=== PATIENT | male | born 1955 | race Caucasian/White ===

== ENCOUNTER 2018-08-22 15:23 | Inpatient (IN) ==
[2018-08-22] MEDS ORDERED: NS 2,000 ML ONE (15:38)
[2018-08-22] MEDS ORDERED: ASPIRIN PO ONE (17:01)
--- NOTE | 2018-08-22 17:08 | PROVIDER DOCUMENTATION ---
HPI-General Adult - General Chief Complaint: Shortness of Breath Stated Complaint: WEAKNESS Time Seen by Provider: 08/22/18 16:54 Source: patient Allergies/Adverse Reactions: Patient Allergies Allergy/AdvReac Type Severity Reaction Status Date / Time Ceucbsu-Dvk-Ljd Reductase AdvReac Unknown Verified 06/14/18 14:58 Inhibitor Home Medications: Home Medication List Medication Instructions Recorded Confirmed Last Taken Type Aspirin 325 mg PO DAILY 06/14/18 06/14/18 Unknown History Carvedilol [Coreg] 12.5 mg PO BID 06/14/18 06/14/18 Unknown History Gabapentin 400 mg PO TID 06/14/18 06/14/18 Unknown History Meclizine [Antivert] 25 mg PO TID PRN PRN 06/14/18 06/14/18 Unknown History Omeprazole 40 mg PO DAILY 06/14/18 06/14/18 Unknown History Sitagliptin Phosphate [Januvia] 100 mg PO DAILY 06/14/18 06/14/18 Unknown History Docusate Sodium [Colace] 200 mg PO QHS capsule 06/20/18 Unknown Rx Ferrous Sulfate 325 mg PO WBREAKFAST tablet 06/20/18 Unknown Rx Insulin Detemir [Levemir] 25 unit SUBQ DAILY #5 insuln.pen 06/20/18 Unknown Rx Oxycodone HCl/Acetaminophen 1 ea PO Q6H #30 tab 06/20/18 Unknown Rx [Percocet 5-325 mg Tablet] - History of Present Illness -Gen Adult Nature of Presenting Problems: THIS IS A 63 YEAR OLD MALE WHO CAME IN TODAY WITH CONCERN OF DIZZINESS, CONFUSION, AND SOB WHICH PATIENT STATES IT STARTED AROUND 1330 THIS AFTERNOON. PATIENT STATES HE HAS HISTORY OF HYPERTENSION AND DIABETES MELLITUS. CURRENTLY A SMOKER. Review of Systems - Adult - REVIEW OF SYSTEMS - ADULT ROS:: unobtainable per condition Constitutional: reports: fatique Eyes: reports: no symptoms reported Ears, Nose, Mouth & Throat: reports: no symptoms reported Cardiovascular: reports: no symptoms reported Respiratory: reports: shortness of breath Gastrointestinal: reports: no symptoms reported Genitourinary: reports: no symptoms reported Musculoskeletal: reports: no symptoms reported Integumentary: reports: no symptoms reported Neurological: reports: dizziness/vertigo Psychiatric: reports: no symptoms reported Endocrine: reports: no symptoms reported Hematologic/Lymphatic: reports: no symptoms reported Allergic/Immunologic: reports: no symptoms reported Past History - Adult - PAST MEDICAL HISTORY-ADULT Review of Records: reports: Old Records Reviewed Major Childhood Illnesses: reports: denies history Cardiovascular: reports: HTN, hyperlipidemia Respiratory: reports: sleep apnea Gastrointestinal: reports: denies history Obstetrical/Gynecological: reports: denies history Genitourinary: reports: dialysis Musculoskeletal: reports: denies history Neurological: reports: denies history Endocrine/Immune: reports: Diabetes Other Conditions: reports: denies history - PRIOR SURGERIES/PROCEDURES Surgical/Procedure History: reports: tonsillectomy - IMMUNIZATION STATUS Childhood Immunizations: See Nurse Assessment Flu Vaccine: See Nurse Assessment - FAMILY HISTORY Family History: reviewed, not pertinent Physical Exam-General - PHYSICAL EXAM-ADULT Initial Vital Signs Reviewed: Yes - CONSTITUTIONAL General Appearance: no apparent distress, slow to respond - EYES Eyes: PERRL/EOMI - HEAD, EARS, NOSE, MOUTH & THROAT HENMT: normocephalic/atraumatic, moist mucous membranes - NECK Neck: non-tender, full range of motion, supple - RESPIRATORY Respiratory: chest non-tender, lungs clear, normal breath sounds - CARDIOVASCULAR Cardiovascular: normal peripheral pulses, regular rate, rhythm, no edema, no gallop, no JVD, no murmur - GASTROINTESTINAL (ABDOMEN) Abdominal Exam: normal bowel sounds, non tender, soft - MUSCULOSKELETAL Back Exam: normal inspection, no CVA tenderness, no vertebral tenderness Extremity: normal range of motion, non-tender, normal gait, normal inspection - SKIN Integumentary: normal color, normal turgor, warm/dry - NEUROLOGIC Neurologic: grossly normal - PSYCHIATRIC Psych/Mental Status: normal mood/affect, normal thought content, normal thought process Progress - PLAN OF CARE/RESULTS Progress/Plan/Lab Results: Vital Signs - 8 hr 08/22/18 15:33 08/22/18 15:47 Temperature 98.5 F 98.5 F Pulse Rate 44 L 91 H Respiratory Rate 20 36 H Blood Pressure 64/47 65/44 O2 Sat by Pulse Oximetry 92 L 97 Orders Category Date Time Status CBC WITH ELECTRONIC DIFF [HEME] Stat Lab 08/22/18 17:01 Ordered CK PROFILE [SP CHEM] Stat Lab 08/22/18 16:58 Ordered CMP [COMPREHENSIVE METABOLIC PANEL] [CHEM] Stat Lab 08/22/18 17:02 Ordered PROTIME WITH INR [COAG] Stat Lab 08/22/18 17:01 Ordered PTT [COAG] Stat Lab 08/22/18 17:01 Ordered TROPONIN T Stat Lab 08/22/18 16:58 Ordered pro-bnp [PRO B-NATRIURETIC PEPTIDE] Stat Lab 08/22/18 17:01 Ordered 0.9% Sodium Chloride Inj [Ns] 1,000 ml Med 08/22/18 15:38 Discontinued .ROUTE As Directed Aspirin Med 08/22/18 17:01 Discontinued 325 mg PO NOW ONE Result Diagrams: 08/22/18 16:53 08/22/18 16:53 - REASSESSMENT Reassessment #1 Time Reassessed: 17:14 Status: other (EKG FAXED OVER FOR [facility] FOR [facility] AT [facility]; PER DR. VAUGHAN AND HELEN; THEY DON'T APPRECIATE STEMI BUT PERICARDITIS.) Reassessment #2 Time Reassessed: 18:35 Status: other (NEUTROPHILIC LEUKOCYTOSIS, UREMIA, LAYNE, ELEVATED LIVER ENZYMES FROM BASELINE, TROPONIN AT 0.053; PENDING XRAY. WILL CONSULT HOSPITALIST FOR ADMISSION.) Reassessment #3 Time Reassessed: 19:19 Status: other (SPOKE TO HOSPITALIST; APPRECIATE THEIR ASSISTANCE.) - EKG 1 Time of EKG reading by physician:: 17:10 EKG Read and Signed by:: Rula Cervantes EKG Interpretation (*Must complete 3 of following elements*): Abnormal Rate: 90 Rhythm: SINSU RHYTHM WITH PREMATURE VENTRICULAR COMPLEXES [place]: normal QRS: normal SC Interval: normal ST Wave: elevated (ST ELEVATION IN V3, V4, V5, AVF WITH P WAVE DEPRESSION IN II) Comments: ST ELEVATION IN V3, V4, V5, AVF WITH P WAVE DEPRESSION IN II - XRAY 1 XRAY Study: Chest ([facility] [address], [address], [place] [address] Department of Imaging Patient: JOSE E PCIKETT Date : 08/22/18MR#: [id number] : 1955DM Status: REG [facility]#: [id number] Age/Sex: 63/MRoom/Bed: Loc: ED Ordering Physician: Rula Cervantes MD Family Physician: Jeremiah Moody MD Reason for Procedure: PERICARDITIS ON EKG __ _ Signed EXAM: CHEST-PORTABLE INDICATION: PERICARDITIS ON EKG TECHNIQUE: One view COMPARISON: 04/15/2015 FINDINGS: There is mild subsegmental atelectasis in the right midlung zone. The central vasculature appears mildly increased suggesting possible mild pulmonary venous congestion. There is no discrete pleural fluid collection or pneumothorax. The cardiac silhouette is grossly unremarkable. IMPRESSION: Mildly prominent central vasculature suggesting possible mild pulmonary venous congestion and minimal subsegmental atelectasis in the right midlung zone. Electronically signed by Yordan Josue 08/22/2018 7:24 PM 08/22/181923 Interpreting Physician: Yordan Josue MD Dictated Date/Time: 08/22/181921 cc: Rula Cervantes MD; Jeremiah Moody MD) Departure - Departure Date of Disposition Decision: 08/22/18 Time of Disposition Decision: 19:31 DIAGNOSIS: Pericarditis, LAYNE (acute kidney injury), Uremia, Elevated liver enzymes Disposition: ADMITTED INPATIENT 09 Certified Medical Emergency: Emergent Condition: Fair Referrals and Follow-Ups: Jeremiah Moody MD [Primary Care Provider] - - Critical Care Note This patient required my direct & personal management of CC.: No Attestation - Physician/ POLLO Attestation Patient care was provided by Advanced Practice Provider:: No The physician spent face to face time with patient:: Yes Advanced Practice Provider documentation review:: Supervising physician onsite and consulted in the evaluation and care of this patient. The physician did have a face to face encounter with the patient.
--- NOTE | 2018-08-22 17:19 | ED EKG INTERP ---
This chart was entered by Charissa Flores Scribe, acting as scribe for Felipa Barclay MD. EKG Interpretation - EKG Time of EKG reading by physician:: 15:28 EKG Read and Signed by:: Felipa Barclay EKG Interpretation (*Must complete 3 of following elements*): Abnormal Rate: 90 Rhythm: sinus rhythm with frequent premature ventricular complexes MT Interval: normal Comments: low voltage QRS; possible acute pericarditis Attestation - Physician/ POLLO Attestation The physician spent face to face time with patient:: No Advanced Practice Provider documentation review:: Supervising physician onsite and consulted in the evaluation and care of this patient. The physician did not have a face to face encounter with the patient. This chart was documented by the indicated scribe, (Charissa Flores Scribe) and accurately reflects the services I performed and decisions made by me, Felipa Barclay MD, as attested by the provider's signature.
[2018-08-22 17:33] LABS: INR 1.13; PROTIME 15.5 Seconds (11.0-16.0)
[2018-08-22 17:46] LABS: BASO# 0.02 X1000 (0.0-0.2); BASO% 0.2 % (0.0-0.8); EOS# 0.03 X1000 (0.0-0.7); EOS% 0.3 % (0.0-10.0); HEMATOCRIT 33.3 % (42.0-52.0); IMM GRAN% 0.8 % (0.0-0.5); LYMPH# 1.06 X1000 (1.2-3.4); LYMPH% 8.9 % (20.5-51.1); MCH 29.1 PG (27-31); MCV 88.1 FL (81-99); MONO# 1.09 X1000 (0.11-0.59); MONO% 9.1 % (1.7-9.3); MPV 10.7 FL (7.4-10.4); NEUT# 9.62 X1000 (1.4-6.5); NEUT% 80.7 % (42.2-75.2); PLT 259 X1000 (130-400); RBC 3.78 XMIL (4.7-6.1); WBC 11.92 X1000 (4.8-10.8)
[2018-08-22] MEDS ORDERED: NS 1,000 ML IV ONE ×3 (17:48→20:54)
[2018-08-22 17:50] LABS: ALB/GLOB RATIO 1.2; ALBUMIN 3.4 g/dL (3.5-5.0); CALCIUM 8.7 mg/dL (8.8-10.2); CREATININE 1.5 mg/dL (0.7-1.2); POTASSIUM 5.2 mmol/L (3.5-5.1); TOTAL BILIRUBIN 1.87 mg/dL (0.20-1.00); TOTAL PROTEIN 6.2 g/dL (6.3-8.3)
[2018-08-22 17:57] LABS: PTT 30.2 Seconds (22.3-41.8)
[2018-08-22 17:58] LABS: URINE SOURCE CLEAN CATCH
[2018-08-22 18:22] LABS: BILIRUBIN URINE SMALL (NEGATIVE); BLOOD URINE TRACE (NEGATIVE); COLOR YELLOW; GLUCOSE URINE TRACE mg/dL (NEGATIVE); KETONE URINE NEGATIVE (NEGATIVE); LEUKOCYTES URINE TRACE (NEGATIVE); NITRITE URINE NEGATIVE (NEGATIVE); PH URINE 5.5; PROTEIN URINE 30 mg/dL (NEGATIVE); SP GRAVITY URINE 1.022; TURBIDITY URINE HAZY (CLEAR); UROBILINOGEN URINE >12 mg/dL (NORMAL)
[2018-08-22 18:27] LABS: URINE BACTERIA NEGATIVE /HPF; URINE RBC <10 /HPF (<10); URINE WBC 20-40 /HPF (<10)
[2018-08-22 18:32] LABS: UR EPITHELIAL CELLS >10 /HPF (<10); URINE CASTS EPITHELIAL PRESENT; URINE CRYSTALS NONE SEEN; URINE YEAST NONE SEEN
[2018-08-22 18:33] LABS: URINE SMALL ROUND CELLS RENAL PRESENT
--- NOTE | 2018-08-22 19:25 | Diag Imaging Result Doc PS360 ---
EXAM: CHEST-PORTABLE INDICATION: PERICARDITIS ON EKG TECHNIQUE: One view COMPARISON: 04/15/2015 FINDINGS: There is mild subsegmental atelectasis in the right midlung zone. The central vasculature appears mildly increased suggesting possible mild pulmonary venous congestion. There is no discrete pleural fluid collection or pneumothorax. The cardiac silhouette is grossly unremarkable. IMPRESSION: Mildly prominent central vasculature suggesting possible mild pulmonary venous congestion and minimal subsegmental atelectasis in the right midlung zone. Electronically signed by Yordan Josue 08/22/2018 7:24 PM
[2018-08-22] MEDS ORDERED: NS 500 ML IV ONE (20:25)
[2018-08-22] MEDS: HUMALOG SUBQ SCH (22:12)
[2018-08-22] MEDS ORDERED: TYLENOL PO PRN (22:12)
[2018-08-22] MEDS ORDERED: ZOFRAN IV PRN (22:12)
[2018-08-22] MEDS ORDERED: NICODERM PATCH TD ONE (22:12)
[2018-08-22] MEDS ORDERED: BASAGLAR SUBQ ONE (22:12)
[2018-08-22] MEDS: COLCRYS PO SCH (22:12)
[2018-08-22] MEDS: DUONEB (A & A) INH SCH (23:30)
[2018-08-23] MEDS: NS 1,000 ML IV SCH ×2 (00:01→12:06)
[2018-08-23] MEDS: LOVENOX SUBQ SCH ×3 (00:02→23:07)
[2018-08-23] MEDS: ZITHROMAX 500 MG/NS 500 MG/250 ML IVPB IV SCH ×2 (00:03→21:27)
[2018-08-23] MEDS: ROCEPHIN 2 GM in NS 50 ML IV SCH ×2 (00:08→21:27)
[2018-08-23] MEDS: PREDNISONE PO SCH ×2 (00:10→08:45)
[2018-08-23 05:09] LABS: BASO# 0.01 X1000 (0.0-0.2); BASO% 0.1 % (0.0-0.8); EOS# 0.01 X1000 (0.0-0.7); EOS% 0.1 % (0.0-10.0); HEMATOCRIT 33.8 % (42.0-52.0); HEMOGLOBIN 11.1 g/dL (14.0-18.0); IMM GRAN# 0.05 X1000 (0.0-0.04); IMM GRAN% 0.4 % (0.0-0.5); LYMPH# 0.71 X1000 (1.2-3.4); LYMPH% 5.9 % (20.5-51.1); MCHC 32.8 g/dL (33-37); MCV 88.3 FL (81-99); MONO# 0.65 X1000 (0.11-0.59); MONO% 5.4 % (1.7-9.3); MPV 10.5 FL (7.4-10.4); NEUT# 10.51 X1000 (1.4-6.5); NEUT% 88.1 % (42.2-75.2); PLT 257 X1000 (130-400); RBC 3.83 XMIL (4.7-6.1); RDW 15.1 % (11.5-14.5); WBC 11.94 X1000 (4.8-10.8)
--- NOTE | 2018-08-23 05:21 | HISTORY AND PHYSICAL ---
PHYSICIAN: Patient of Dr. Jan Moody. REASON FOR ADMISSION: Worsening shortness of breath and weakness. HISTORY OF PRESENT ILLNESS: Mr. Shawn Cifuentes is a 63-year-old male with past medical history of type 2 diabetes, peripheral arterial disease and hypertension. He is a two- pack-a-day smoker and reports that for the last one week he has been getting more short of breath with mild exertion. He also reports that his chronic cough has been getting more frequent and worse. It is productive but he has not expectorated anything so far. He denies any orthopnea, PND or any chest pain. Denies any lower extremity swelling. He is fully away that he has very cool, cold feet but he denies any discoloration of his feet. He was brought in today on account of his blood pressure, systolic being in the 70s, and him feeling lightheaded. He denies any fever or chills. Denies any genitourinary or GI complaints. He was noted to be confused when his blood pressure was taken at that time. He says he has a hard time over the last two days sitting up, or standing because he feels profoundly weak. He denies any polyuria or polydipsia. He denies any vomiting, diarrhea or blood loss. He denies any change in his home medications. Not had any contact with anybody with any GI or respiratory illnesses. No neck stiffness. REVIEW OF SYSTEMS: Twelve system review was done. Positive findings per HPI. ALLERGIES: Statin drugs. MEDICATIONS: Home medication has not been reconciled but he was on Levemir and he takes Januvia per his old records. PAST MEDICAL HISTORY: Patient was recently discharged not too long ago after undergoing hip surgery following a fracture. Social history: Patient smokes 2 PPD. No drugs or ETOH. Smoking cessation discussed. FAMILY HISTORY: Notable for heart disease and diabetes. SURGICAL HISTORY: He has had bilateral hip surgery, most recent one just over a month ago, back surgery, carpal tunnel surgery and surgery involving his hands. LAB WORK: Lactate is pending. EKG was done in the ER and it showed diffuse ST wave elevations with concavity and ST elevation. There is also depressed GA depressions also noted. Please note, normal sinus rhythm. Most of the ST wave elevations were anterior lead V3 to V5 and AVF. Other labs of note: Sed rate was 80. White count 50226. Hemoglobin and hematocrit 11 and 30. Platelets 259 with 80% neutrophils. Sodium 131. Potassium 5.2. BUN 37. Creatinine 1.5, up from 0.5. Glucose 210. Calcium 8.7. Total bilirubin is 1.8. AST is 104. ALT is 134. Alkaline phosphatase 285. Troponin 0.953. C-reactive protein is 92. TSH is normal. Albumin 3.4. PTT is normal. Urinalysis shows epithelial cells, 20 to 40 WBCs. Chest film showed no acute infiltrate but possible mild pulmonary venous congestion was noted. PHYSICAL EXAMINATION: VITAL SIGNS: Blood pressure 95/55, heart rate 80, respirations was 24, temperature was 98.5, 98% on 2 L. GENERAL: Chronically ill looking middle-aged male who appears slightly older than stated age. HEENT: Head is normocephalic, atraumatic. Eyes: PERRL. EOMI. He is anicteric but pale. ENT and oropharynx exam is grossly normal. No sign of cyanosis. NECK: Supple with questionable mild JVD. No bruit or thyromegaly CHEST: Few bibasilar crepitations. No wheezes. Increased air entry in both lung zamora. CARDIOVASCULAR: First and second heart sounds heard. No gallops, murmurs or rubs. Rhythm is regular. ABDOMEN: Protuberant and soft. No focal areas of tenderness. No masses or megaly. Bowel sounds are hypoactive. No bruit heard. RECTAL: Exam is deferred. EXTREMITIES: The patient has very cold and cyanotic feet which is chronic per the patient. Pulses are barely palpable. He has 1+ pulses distally in upper extremities. No clubbing or peripheral cyanosis. No edema. Pt has healing chronic R foot plantar ulcer near 1st MTP jt area. NEUROLOGICAL: No gross focal deficits. SKIN: Intact with no breakdowns or erythema. He has borderline skin turgor. MUSCULOSKELETAL: Exam is grossly normal. ASSESSMENT: 1. Hypertension, medication induced versus occult infection. ? for sepsis. Etiology yet to be determined. 2. Transaminitis. Consider liver pathology. 3. Acute kidney injury. 4. COPD. 5. Peripheral arterial disease. 6. Type 2 diabetes, uncontrolled. 7. History of hypertension. 8. Pericarditis. Etiology yet to be determined. PLAN: Will start patient on broad spectrum antibiotics. For now my suspicion for possible source of infection could be gallbladder versus pulmonary. A CT thorax has been ordered and a right upper quadrant sonogram will be ordered. Will as such cover patient with Zosyn and possible Zithromax, Zosyn for gallbladder disease and pneumonia and Zithromax for atypical pathogens. Nebulizer treatment, antitussive agents will be prescribed to treat patient symptomatically as needed. Patient was given 2 L of fluids and is beginning to show signs of possible early fluid congestion. However, patient is hypotensive and will benefit from cautious and very conservative gentle hydration despite early signs of pulmonary vascular congestion. If patient becomes progressive dyspneic on this will discontinue fluids and give Lasix. Fluid was given because of hypotension but also for impending renal failure. Discontinue any nephrotoxic medications, home medications need to be reconciled, when officially reconciled. Patient's pericarditis could be likely viral or it could be adjacent from a pulmonary source, hence rationale for thorax. In the interim, will start patient on prednisone which would address any pulmonary issues, i.e. COPD but also help with underlying peritonitis. Echocardiogram was also ordered to further evaluate if there is any coexistent effusion and if this is causing any compromise in the hemodynamics of the patient's heart. Colchicine will also be added for its synergistic effect with steroids. NSAID not prescribed due to patient's questionable renal function. Patient will be admitted to CICU or if there is a bed ICU. Critical care time with his patient was estimated to be 40 minutes. cc: MD Jeremiah Friend MD MTDD
[2018-08-23 05:30] LABS: ALB/GLOB RATIO 0.9; ALBUMIN 3.1 g/dL (3.5-5.0); CALCIUM 8.1 mg/dL (8.8-10.2); CREATININE 1.3 mg/dL (0.7-1.2); MAGNESIUM 1.6 mg/dL (1.5-2.7); POTASSIUM 4.4 mmol/L (3.5-5.1); TOTAL BILIRUBIN 1.01 mg/dL (0.20-1.00); TOTAL PROTEIN 6.6 g/dL (6.3-8.3)
[2018-08-23 05:35] LABS: LYMPHS 6 % (21-51); MONO 5 % (1-9); SEGS 89 % (42-75)
[2018-08-23] MEDS: HUMALOG SUBQ SCH ×4 (06:46→21:06)
--- NOTE | 2018-08-23 07:10 | Diag Imaging Result Doc PS360 ---
EXAM: CT THORAX W/O CONTRAST 08/22/2018 HISTORY: pericarditis ? PNA TECHNIQUE: This exam was performed using automated exposure control, adjustment of mA or kV according to patient size, and/or use of iterative reconstruction technique. COMMENT: There are bilateral pleural effusions more so on the left than the right as well as a pericardial effusion. The latter measures 18 mm in thickness anteriorly. There is some generalized subcutaneous edema. There is some edematous change in the anterior pararenal space adjacent to the tail of the pancreas and possibly around the head of the pancreas as well as around the distal esophagus. There is a 3.2 cm right adrenal adenoma. There is a small volume of ascites in the right subphrenic space there is some apparent pericardial thickening. The possibility of pericarditis cannot be excluded on the basis of this study. There are some platelike opacities present in the lung bases bilaterally. This is particularly true of the left lower lobe. The possibility of a mild degree of bronchopneumonia cannot be excluded however most likely these opacities are due to atelectasis. There are subcentimeter mediastinal and hilar nodes. There is extensive coronary calcification. There are some spondylotic changes in the thoracic spine. There are multiple old right rib fractures. IMPRESSION: Bilateral pleural and pericardial effusions. Ascites and anasarca. Bilateral subsegmental atelectasis. Electronically signed by Yoni Marques 08/23/2018 7:07 AM
[2018-08-23] MEDS: DUONEB (A & A) INH SCH ×5 (07:30→23:30)
--- NOTE | 2018-08-23 07:43 | EKG Report ---
Test Performed on : 08/22/2018 3:28:51 PM Test Reason : ED. NO EKG ORDER FOR MUSE Blood Pressure : / mmHG Vent. Rate : 090 BPM Atrial Rate : 090 BPM P-R Int : 136 ms QRS Dur : 072 ms QT Int : 360 ms P-R-T Axes : 036 027 052 degrees QTc Int : 440 ms Sinus rhythm. with frequent premature ventricular complexes. Low voltage QRS Possible Acute pericarditis Abnormal ECG When compared with ECG of 26-AUG-2007 09:54, premature ventricular complexes. are now present ST elevation now present in Inferior leads Unconfirmed Result
--- NOTE | 2018-08-23 07:46 | EKG Report ---
Test Performed on : 08/22/2018 4:46:22 PM Test Reason : ED. NO EKG ORDER FOR MUSE Blood Pressure : / mmHG Vent. Rate : 084 BPM Atrial Rate : 084 BPM P-R Int : 140 ms QRS Dur : 068 ms QT Int : 354 ms P-R-T Axes : 047 020 044 degrees QTc Int : 418 ms Sinus rhythm. with frequent premature ventricular complexes. Low voltage QRS ST elevation, consider inferolateral injury or acute infarct ACUTE TX / STEMI Abnormal ECG When compared with ECG of 22-AUG-2018 15:28, (Unconfirmed) No significant change was found Unconfirmed Result
[2018-08-23] MEDS: COLCRYS PO SCH ×2 (08:46→21:06)
[2018-08-23] MEDS: TESSALON PO SCH ×3 (08:46→16:54)
[2018-08-23] MEDS ORDERED: BASAGLAR SUBQ SCH (09:00)
[2018-08-23] MEDS ORDERED: BLISTEX MEDICATED BERRY LIP BALM TOP ONE (09:05)
--- NOTE | 2018-08-23 10:30 | CARDIOLOGY CONSULTATION ---
DATE: 08/23/2018 CHIEF COMPLAINT ON PRESENTATION: Dizziness, lightheadedness, confusion. REASON FOR CONSULTATION: Pericardial effusion. HISTORY OF PRESENT ILLNESS: Mr. Cifuentes is a 63-year-old gentleman with a history of hypertension and coronary disease, who over the last couple of days, has felt poorly with some malaise and generalized weakness. He said he had some confusion yesterday as well as some subjective fevers. He has not had any chest pain, no shortness of breath. He denies any orthopnea. PAST MEDICAL HISTORY: 1. Appears to be a significant for coronary disease. He had a heart catheterization in 2007 that demonstrated a normal left main. The left anterior descending was a large, 30% to 35% discrete tubular stenosis in the proximal vessel. There is a diagonal with 30% disease. Circumflex was nondominant. Circumflex had a 20% stenosis before bifurcation into 2 terminal branches. There was a 60% to 70% severity lesion extending into the origin of its 2 terminal branches. Right coronary had a 50% to 60% lesion, appeared to be in the proximal portion. Right coronary was completely occluded and gave around a second right ventricular branch. The right ventricular branch had an 80% to 90% lesion. At that time, he was treated medically. He had an ejection fraction of 68%. 2. Diabetes. 3. Apparent recent hip operation after a fracture. SOCIAL HISTORY: Patient smokes 2 packs per day. No drugs or alcohol. FAMILY HISTORY: Notable for diabetes. REVIEW OF SYSTEMS: A 10-system review of systems is negative except for those mentioned the HPI. PHYSICAL EXAMINATION: Vital signs: The patient is afebrile. His heart rate is 92. His blood pressure is 133/83. General: He is in no acute distress. HEENT: Oropharynx is moist. Poor dentition. Eye examination shows pink conjunctivae, white sclerae. Neck: Examination shows no obvious thyromegaly or thyroid tenderness. Cardiovascular: He sounds to be in a regular rate and rhythm. He has no obvious murmurs. There were no rubs. He had no lower extremity edema. His distal extremities were somewhat cool. He had no obvious carotid bruits. No elevation in his JVP. Chest: Sounded relatively clear. He has no increased work of breathing. Abdomen: Was soft, nontender, nondistended. He had no obvious organomegaly. Skin Exam: Warm and dry throughout. He had no obvious rashes. Neurological: He is moving all extremities well. He has no lateralizing deficits. Psychiatric: He is alert, oriented, pleasant. Normal mood and affect. PERTINENT DATA: His initial EKG at 1528 showed sinus rhythm, PVCs. He does appear to have some diffuse mild ST depression with P-R elevation in AVR and P-R depression noted as well. His subsequent EKG at 1646 on the again shows diffuse ST elevations, sinus rhythm, some P-R elevation in AVR, CO depression most notably in 2 PVCs continued. He had a chest CT showing bilateral pleural effusions as well as a pericardial effusion. Multiple old right rib fractures, ascites; anasarca was noted. His lab data shows white count of 11.9, his hematocrit is 33, his platelet count is 257,000. He had 89% neutrophils. His sodium is 132. Potassium is 4.4. His BUN is 41. Creatinine is 1.3. His troponin is negative. CRP is 92. ProBNP 473. His TSH was 0.79. ASSESSMENT: Mr. Cifuentes is a 63-year-old gentleman, who presented with weakness, some dizziness, and was found to have a large pericardial effusion. His echocardiogram was reviewed. His ejection fraction appears normal. He does appear to have some early evidence of diastolic right ventricular collapse. I agree with IV fluids as well as colchicine presently. I will review the case with one of my partners. I believe he most likely would benefit from a pericardial window. We will consider consultation with the surgeons regarding this. Presently, we will continue fluids and anti-inflammatories. cc: Brandin Gross MD
--- NOTE | 2018-08-23 12:55 | PROGRESS NOTE ---
DATE: 08/23/2018 INTERVAL HISTORY: Mr. Cifuentes was admitted overnight with profound hypotension, suspected pericarditis, pericardial effusion, and suspected tamponade. He was resuscitated with intravenous fluids. He was also started on intravenous antibiotics for suspected sepsis. SUBJECTIVE: By the time I saw him in the emergency room, his hypotension had resolved. He has been feeling better, much better than he came in with. He denies any chest pain. Though he appears to be audibly wheezing, he denies feeling any shortness of breath. I counseled him against the use of any tobacco products. He denies any chest pain, nausea, vomiting, abdominal pain, constipation, or decreased appetite. He continues to have bilateral lower extremity edema, erythema, and cold feet, which has been ongoing for many months. OBJECTIVE: Vital Signs: Temperature 98 degrees, pulse 84, respiratory rate 18, blood pressure 160/90, saturating 94% on 3 to 4 L nasal cannula. General: Appears to be audibly wheezing, not in any acute distress. HEENT: Oral cavity is moist with black tobacco smoking pigmentation affecting the posterior pharyngeal and soft palate. Neck: Marked jugular venous distention. Lungs: Air entry bilaterally equal. No wheeze, rhonchi, or crackles. Cardiovascular: S1, S2 normal. Heart sounds appear distant. No murmur, rub, or gallop. Chest: No chest wall tenderness. Abdomen: Soft, nontender. Bowel sounds active. No hepatosplenomegaly. Extremities: Bilateral lateral lower extremity edema affecting bilateral lower extremities extending up to bilateral knees. There is diffuse erythema. However, the feet are very cold to touch. There is an arterial ulcer at the base of the right great toe on the sole. I could not appreciate pulses in the dorsalis pedis or popliteal region. I have ordered ankle-brachial index and I will consider vascular surgery consultation in the future. Neurologic: Alert and oriented x3. LABORATORY DATA: Labs suggestive of persistent leukocytosis with neutrophilia. Stable hemoglobin, hematocrit, and platelet count. Resolution of hyperkalemia, improving hyponatremia, improving acute kidney injury, hyperglycemia, and persistent transaminitis. MICROBIOLOGY: So far, influenza screen, group A strep rapid antigen, and blood cultures have been negative. IMAGING: Chest CT had suggested pericardial effusion, which was about 1.5 cm bilateral pleural effusion. Echocardiogram read is pending, however, according to Cardiology's note, it did have some tamponade physiology with diastolic right ventricular collapse. ASSESSMENT AND PLAN: 1. Acute pericarditis, pericardial effusion, pericardial tamponade based on history, physical, EKG, and imaging evidence. Continue colchicine and prednisone. Appreciate Cardiology's recommendation about need for pericardial fluid drainage surgically and possible transfer to [facility]. 2. Hypotension, likely in the setting of sepsis versus pericardial tamponade, now resolved. Continue intravenous fluids. 3. Suspected sepsis from pneumonia. On review of CT, he did have mild pulmonary edema and bilateral pleural effusions without any organized consolidation or infiltrate. He did have pericardial effusion and acute kidney injury with transaminitis. These could indicate a viral etiology of pericarditis. I will follow up with Legionella antigen and continue intravenous antibiotics until the results of it and the procalcitonin are back, and would most likely stop the antibiotics. 4. Transaminitis, acute kidney injury, likely in the setting of profound hypotension versus viral infection. Continue to monitor. 5. Peripheral arterial disease with arterial ulcers. Follow up ultrasound arterial duplex for ankle-brachial index calculation. Once his kidney function stabilizes, he might need CT angiography. Accordingly I will consult Vascular Surgery as he may need intervention if he remains in this hospital. 6. History of insulin-dependent diabetes mellitus. Continue glargine and sliding scale insulin. 7. Wheezing on examination with undiagnosed chronic obstructive pulmonary disease. Continue albuterol/ipratropium nebulization. 8. Others. Continue home aspirin, omeprazole for gastroesophageal reflux disease. DISPOSITION: The patient remains inside the hospital pending Cardiology's recommendation about possible transfer to [facility]. Plan of care was discussed with the patient and his ex- at bedside. All of their questions have been answered. cc: Ronald Reyna MD
--- NOTE | 2018-08-23 15:02 | GENERAL SURGERY CONSULTATION ---
DATE: 08/23/2018 REFERRING PHYSICIAN: Dr. Brandin Gross. REASON FOR CONSULTATION: Pericardial effusion with tamponade features. HISTORY OF PRESENT ILLNESS: This is a 63-year-old male with a history of smoking, peripheral arterial disease, hypertension, type 2 diabetes and coronary artery disease who presented to the hospital yesterday with confusion, malaise, weakness and hypotension. He denied fever, chills, chest pain, shortness of breath, abdominal pain, nausea or vomiting. He does report a productive cough recently. Further workup in the emergency room, including a chest CT scan and echocardiogram, reveals a pericardial effusion with early tamponade features and right ventricular collapse. Currently, he is feeling better than when he was admitted last night. PAST MEDICAL HISTORY: As described above in HPI. PAST SURGICAL HISTORY: Multiple orthopedic surgeries. No abdominal or chest surgery. FAMILY HISTORY: Positive for diabetes. ALLERGIES: Statins. SOCIAL HISTORY: He smokes 2 packs per day. No alcohol or illicit drug use. CURRENT MEDICATIONS: DuoNeb, aspirin, Zithromax, Tessalon, Rocephin, colchicine, Lovenox, glargine, Humalog, Prilosec, Zofran and prednisone. REVIEW OF SYSTEMS: Ten systems reviewed and negative except as noted above. PHYSICAL EXAMINATION: Vital Signs: Temperature 97.6, pulse 94, respirations 20, blood pressure 148/85, O2 sat 96%. General: He is an elderly male who looks his stated age, in no acute distress. HEENT: Normocephalic, atraumatic. Extraocular muscles intact. Pupils equal, round, reactive to light. Sclerae anicteric. Moist mucous membranes. Neck: Supple. No thyromegaly. Cardiovascular: Regular rate and rhythm. No jugular venous distention. No murmurs or rubs appreciated. Respiratory: Bilateral equal breath sounds. No work of breathing. Gastrointestinal: Soft, nontender, nondistended. No organomegaly or mass. No hernias. Extremities: No clubbing, cyanosis or edema. Skin: Warm and dry. No rash. Musculoskeletal: Moves all extremities equally and well. LABORATORY: White blood cell count 11.9, hemoglobin 11, hematocrit 33.8, platelet count 257,000. Sodium 132, potassium 4.4, chloride 99, CO2 19, BUN 41, creatinine 1.3, glucose 202, total bilirubin 1.0, AST 173, ALT 200, alkaline phosphatase 260. IMAGING: As described above in HPI. ASSESSMENT AND PLAN: A 63-year-old male with pericardial effusion with tamponade and pericarditis. Hypotension on admission, now resolved. Possible pneumonia and other chronic medical problems. We are planning a pericardial window tomorrow afternoon as he has eaten today and is not in hemodynamic distress at this time. I discussed the risks, benefits and alternatives with him, including bleeding, infection, injury to the heart or lungs, and other imponderables. He understands and agrees to proceed. cc: Saji Rangel MD
--- NOTE | 2018-08-23 16:54 | ECHO REPORT ---
ORDER DATE: 08/23/2018 INTERPRETING PHYSICIAN: Dr. Baldwin REQUESTING PHYSICIAN: CLINICAL INDICATIONS: This is a 63-year-old male with shortness of breath, pericarditis, smoker. M-MODE MEASUREMENTS: Right ventricle: cm. Left ventricle end diastole: 4.9 cm. Left ventricle end systole: 3.0 cm. Posterior wall: 1.0 cm. Interventricular septum: 1.1 cm. Left atrium: 3.6 cm. Aortic root: 3.6 cm. SUMMARY OF 2-DIMENSIONAL IMAGIN. This study basically shows a moderate to large pericardial effusion with suggestion of diastolic compression of the right ventricle. 2. The inferior vena cava is dilated at 2.4 cm with no respiratory variation. 3. The left ventricular function is excellent. The ejection fraction is 60% or better. 4. Mitral valve grossly normal. 5. Pulmonic valve grossly normal. 6. Aortic valve also grossly normal. 7. Tricuspid valve shows mild degree of regurgitation. 8. Pulmonary pressure is somewhere in the neighborhood of 46 mmHg. CONCLUSIONS: In summary, this study is remarkable for the presence of a moderate to large pericardial effusion with diastolic compression of the right ventricle suggesting pericardial tamponade. The left ventricular systolic function is normal. The right atrial pressure is elevated. Clinical correlation is recommended. Referring physician, Dr. Brandin Gross, was made aware of these findings. cc: MD Quinn Chicas MD Peter Johnson, MD
--- NOTE | 2018-08-23 18:05 | VASCULAR LAB ---
PROCEDURE NAME: Arterial Bilateral Legs - 08/23/2018 REFERRING PHYSICIAN: Ronald Reyna MD READING PHYSICIAN: Saji Rangel MD CASER IN: [place]. INDICATION: Bilateral cold feet and right foot ulcer. FINDINGS: Pulse volume waveforms show pulsatile flow at all levels that are mildly blunted at the right great toe and the left 2nd, 3rd, and 4th toes. Segmental pressures: Right brachial 144, high thigh 182, low thigh 194, popliteal 203, dorsalis pedis 152, posterior tibial 178, toe pressure 81, YOEL 1.2. Left brachial pressure 149, high thigh 183, low thigh 199, popliteal 182, dorsalis pedis 141, posterior tibial 173, toe pressure 86, YOEL 1.2. INTERPRETATION: Unremarkable lower extremity arterial study, apart from some mild small-vessel disease in the foot at the digital level. This is likely still adequate for wound healing in the feet. cc: MD Ronald Rose MD
[2018-08-23] MEDS ORDERED: NEURONTIN PO SCH (22:30)
[2018-08-23] MEDS ORDERED: MELATONIN PO ONE (22:30)
[2018-08-24] MEDS: NS 1,000 ML IV SCH ×2 (00:14→16:22)
[2018-08-24] MEDS: HUMALOG SUBQ SCH ×4 (06:33→21:32)
[2018-08-24] MEDS: DUONEB (A & A) INH SCH ×4 (08:21→23:24)
[2018-08-24] MEDS ORDERED: ROBAXIN PO PRN ×2 (08:52→15:39)
[2018-08-24] MEDS ORDERED: NEURONTIN PO SCH (09:00)
[2018-08-24] MEDS ORDERED: PRILOSEC PO SCH (09:00)
[2018-08-24] MEDS ORDERED: ASPIRIN PO SCH (09:00)
[2018-08-24 10:09] LABS: ALB/GLOB RATIO 0.9; DIRECT BILIRUBIN 0.2 mg/dL (0.00-0.20); TOTAL BILIRUBIN 0.43 mg/dL (0.20-1.00); TOTAL PROTEIN 6.4 g/dL (6.3-8.3)
[2018-08-24 10:21] LABS: AGAP 9; BUN 26 mg/dL (8-22); CALCIUM 9.1 mg/dL (8.8-10.2); CHLORIDE 103 mmol/L (98-107); COSMO 279; CREATININE 0.7 mg/dL (0.7-1.2); ESTIMATED GFR > 60; GLUCOSE 214 mg/dL (70-104); POTASSIUM 3.7 mmol/L (3.5-5.1); SODIUM 134 mmol/L (136-145); TCO2 22 mmol/L (25-35)
--- NOTE | 2018-08-24 11:54 | PROGRESS NOTE ---
DATE: 08/24/2018 INTERVAL HISTORY: The patient was transferred from the emergency room to [facility]. He did not have any acute overnight events. SUBJECTIVE: He is feeling the same; in fact, better than he was yesterday. He denies any chest pain. He continues to have cough. He denies any shortness of breath. He is complaining of back pain and lower extremity pain for which he takes gabapentin for peripheral neuropathy. He appears to be audibly wheezing, however, better than before. We discussed about a pericardial window procedure today, and I answered all of his questions. OBJECTIVE: Current vital signs: Temperature 97.7 degrees, pulse 90, blood pressure 140/85, saturating 96% on 3 L nasal cannula, respiratory rate of 17. PHYSICAL EXAMINATION: General: He does not appear in any acute distress. Audibly wheezing but better than yesterday. HEENT: Oral cavity is moist with smoking pigmentation affecting posterior pharyngeal wall and soft palate of tobacco. Mild jugular venous distention, which is better than yesterday. Air entry bilaterally equal. No rhonchi or crackles except bilateral infrascapular region. He has prolonged expiratory phase. Chest: No chest wall tenderness. Distant appearing heart sound. S1, S2 normal. No murmur, rub, or gallop. Bilateral lower extremity edema affecting up to bilateral knees with diffuse erythema. Feet appear warm to touch today. I could not appreciate arterial pulses because of edema. There is what appears to be an arterial ulcer at the base of the right great toe on the sole. Alert and oriented x3. LABORATORY DATA: Labs suggestive of improving hyponatremia. Resolution of hyperkalemia. Resolution of acute kidney injury. Continues to have improvement in transaminitis. Microbiology: Influenza screen was negative. Throat culture: Group A streptococcal rapid antigen. Blood culture has no growth to date. ASSESSMENT AND PLAN: 1. Acute pericarditis- likely viral, pericardial effusion, pericardial tamponade based on history, physical, EKG, and imaging. Continue colchicine and prednisone. Cardiology on board. Patient likely to go for a pericardial window procedure by surgery today on 08/24/2018. I appreciate post- surgery recommendation. 2. Hypotension on admission, likely in the setting of sepsis versus pericardial tamponade, now resolved. Continue intravenous fluid. Decrease the rate considering bilateral crackles on exam. 3. Sepsis from suspected pneumonia versus acute bronchitis. He did have mild pulmonary edema and bilateral pleural effusions without any organized consolidation or infiltrate on CT, however, he has been coughing and wheezing during the examination. Considering his transaminitis pericarditis, it is possible that his acute bronchitis or suspected pneumonia is viral in etiology. I will continue intravenous ceftriaxone and azithromycin as I follow up procalcitonin and urine Legionella antigen since he had liver and kidney involvement and had neutrophilia and, accordingly, we will give him short course of antibiotics or stop it. 4. Transaminitis and acute kidney injury likely in the setting of profound hypotension versus viral infection. Continue to improve. Monitor his liver function tests and kidney function tests. 5. Peripheral artery disease with arterial ulcers. Ultrasound of bilateral lower extremities suggest good flow. No intervention at the moment. 6. History of insulin-dependent diabetes mellitus. Continue glargine sliding scale insulin. 7. Suspected acute exacerbation of chronic obstructive pulmonary disease with frequent cough and wheezing. Continue albuterol ipratropium nebulization and p.o. prednisone. 8. Others: Continue home aspirin, omeprazole for gastroesophageal reflux disease. Continue colchicine for history of chronic gout. 9. Deep venous thrombosis prophylaxis; enoxaparin. 10. Continue gabapentin for peripheral neuropathy. DISPOSITION: The patient remains inside the hospital awaiting pericardial window. Plan of care was discussed with him. All of his questions have been answered. Yesterday, I had discussed plan of care with the patient's ex- at bedside. cc: Ronald Reyna MD I evaluated the patient post procedure. He has a AKBAR drain with about 50 cc serosanguinous fluid in it. He has mild cough and chest soreness. He is sinus tachycardic with heart rate 100-110/min. MTDD
[2018-08-24] MEDS ORDERED: DIPRIVAN 1% ONE (13:14)
[2018-08-24] MEDS ORDERED: FENTANYL ONE (13:15)
[2018-08-24] MEDS ORDERED: NEO-SYNEPHRINE ONE (14:32)
[2018-08-24] MEDS ORDERED: ZOFRAN ONE (14:38)
[2018-08-24] MEDS ORDERED: CARDIZEM IV ONE (14:45)
--- NOTE | 2018-08-24 15:18 | OPERATIVE NOTE ---
PROCEDURE DATE: 08/24/2018 PREOPERATIVE DIAGNOSIS: Pericardial effusion with pericardial tamponade. POSTOPERATIVE DIAGNOSES: 1. Pericardial effusion with pericardial tamponade. 2. Atrial fibrillation. SURGEON: Saji Rangel MD ANESTHESIA: General. PROCEDURE: Pericardial window. ESTIMATED BLOOD LOSS: 10 mL. COMPLICATIONS: None apparent. SPECIMENS: Portions of pericardium for pathology and pericardial fluid for culture and cell count analysis. FINDINGS: She had some blood-tinged thin fluid in the pericardial sac and we drained roughly 350- 400 mL of fluid. DRAINS: One #19 Vahe. TECHNIQUE: The patient was brought to the operating room and placed supine on the table. General anesthesia was induced. She was prepped and draped in the usual sterile fashion. An incision was made in the upper midline over the xiphoid process to the epigastrium with a knife and carried down through the subcutaneous tissues with cautery. The tip of the xiphoid was removed with cautery. I then divided the linea alba and dissected in the retrosternal space. I did inadvertently open the peritoneum, but did not injure any underlying organs. I then felt the pericardium and confirmed placement with a needle and syringe, drawing back blood-tinged serous fluid. I then grasped the pericardium with an Allis clamp and excised a portion of it with the knife. This was sent for pathology. The suction was used to suction out fluid. I then placed a 19 Vahe drain into the pericardial sac and ran my finger along the edge of the heart itself and in the pericardial space I could not feel any nodules. The drain was brought out through a separate stab incision. It was anchored to the skin with nylon suture. I closed the peritoneum with interrupted 0 Vicryl. The linea alba was closed with interrupted 0 Vicryl. The skin was closed with skin clips. There were no apparent complications. He was awakened in stable condition and transferred to the recovery room. cc: Saji Rangel MD
[2018-08-24 15:28] LABS: GLUCOSE BODY FLUID 190 mg/dL; LDH BODY FLUID 853 U/L
[2018-08-24 15:35] LABS: WBC BF 703 /cumm
[2018-08-24 15:36] LABS: MONOS 57 %; POLYS 43 %
[2018-08-24] MEDS ORDERED: ZOFRAN IV PRN (15:39)
[2018-08-24] MEDS ORDERED: TYLENOL PO PRN (15:39)
[2018-08-24] MEDS: LOVENOX SUBQ SCH (16:19)
[2018-08-24] MEDS: TESSALON PO SCH (16:20)
[2018-08-24] MEDS: NEURONTIN PO SCH (16:20)
[2018-08-24] MEDS ORDERED: LOPRESSOR PO ONE (17:14)
[2018-08-24] MEDS ORDERED: COLCRYS PO SCH (21:00)
[2018-08-24] MEDS: COLCRYS PO SCH (21:32)
[2018-08-24] MEDS: ROCEPHIN 2 GM in NS 50 ML IV SCH (21:33)
[2018-08-24] MEDS: ZITHROMAX 500 MG/NS 500 MG/250 ML IVPB IV SCH (21:33)
[2018-08-24] MEDS: ULTRAM PO PRN (21:33)
--- NOTE | 2018-08-24 21:33 | CARDIOLOGY PROGRESS NOTE ---
DATE: 08/24/2018 SUBJECTIVE: Mr. Cifuentes underwent his pericardial window today. He is a little bit sore, but his breathing is doing well. PHYSICAL EXAMINATION: Vital signs: He is afebrile, heart rate of 96, blood pressure 122/72. General: He is in no acute distress. Cardiovascular: He sounds to be in a regular rate and rhythm. I do not hear any obvious murmurs or rubs. He has no S3. No lower extremity edema. Chest: Exam sounds clear with no increased work of breathing. Abdomen: Soft, nontender. PERTINENT DATA: Sodium is 134, potassium 3.7, BUN 26, creatinine 0.7 which is down from a creatinine of 1.5. His CRP is 72. ASSESSMENT: Mr. Cifuentes is a 63-year-old gentleman, who presented with an early onset pericardial tamponade. He has undergone a pericardial window. PLAN: I have added colchicine back to his list of medications. We will continue to follow along with you. Drain is in place. cc: Brandin Gross MD
[2018-08-24] MEDS ORDERED: MORPHINE IV ONE (23:03)
[2018-08-25 05:59] LABS: BASO# 0.02 X1000 (0.0-0.2); BASO% 0.2 % (0.0-0.8); EOS# 0.04 X1000 (0.0-0.7); EOS% 0.5 % (0.0-10.0); HEMATOCRIT 34.5 % (42.0-52.0); IMM GRAN# 0.05 X1000 (0.0-0.04); IMM GRAN% 0.6 % (0.0-0.5); LYMPH% 14.3 % (20.5-51.1); MCH 28.9 PG (27-31); MCHC 31.9 g/dL (33-37); MCV 90.6 FL (81-99); MONO# 0.92 X1000 (0.11-0.59); MPV 10.1 FL (7.4-10.4); NEUT# 6.16 X1000 (1.4-6.5); NEUT% 73.4 % (42.2-75.2); PLT 319 X1000 (130-400); RBC 3.81 XMIL (4.7-6.1); RDW 15.7 % (11.5-14.5); WBC 8.39 X1000 (4.8-10.8)
[2018-08-25 06:20] LABS: AGAP 10; BUN 18 mg/dL (8-22); CALCIUM 8.6 mg/dL (8.8-10.2); CHLORIDE 104 mmol/L (98-107); COSMO 280; CREATININE 0.6 mg/dL (0.7-1.2); ESTIMATED GFR > 60; GLUCOSE 143 mg/dL (70-104); MAGNESIUM 1.3 mg/dL (1.5-2.7); POTASSIUM 4.1 mmol/L (3.5-5.1); SODIUM 138 mmol/L (136-145); TCO2 24 mmol/L (25-35)
[2018-08-25 06:26] LABS: ALB/GLOB RATIO 1.2; DIRECT BILIRUBIN 0.3 mg/dL (0.00-0.20); TOTAL BILIRUBIN 0.48 mg/dL (0.20-1.00); TOTAL PROTEIN 5.5 g/dL (6.3-8.3)
[2018-08-25] MEDS: PRILOSEC PO SCH (06:28)
[2018-08-25] MEDS: NS 1,000 ML IV SCH (06:28)
[2018-08-25] MEDS: HUMALOG SUBQ SCH ×4 (06:29→21:31)
[2018-08-25] MEDS: ULTRAM PO PRN (06:39)
[2018-08-25] MEDS: DUONEB (A & A) INH SCH ×5 (08:17→23:10)
--- NOTE | 2018-08-25 08:32 | Diag Imaging Result Doc PS360 ---
EXAM: CHEST-PORTABLE INDICATION: sob, post op TECHNIQUE: One view COMPARISON: 08/22/2018 FINDINGS: Inspiration is suboptimal. Central vasculature is mildly prominent suggesting pulmonary venous congestion similar to the previous study. Subsegmental atelectasis at the right midlung zone is approximately stable. No new consolidation is identified. Cardiac silhouette is stable. IMPRESSION: Lower lung volumes but essentially stable chest, otherwise. Electronically signed by Yordan Josue 08/25/2018 8:30 AM
--- NOTE | 2018-08-25 08:42 | GENERAL SURGERY PROGRESS NOTE ---
DATE: 08/25/2018 SUBJECTIVE: The patient is doing okay this morning. He has some cough, but no significant chest pain or shortness of breath. OBJECTIVE: Vital Signs: He is afebrile. Vital signs are stable. Vital Signs: Temperature 98.4, pulse 100, respirations 16, blood pressure 131/86, O2 saturation 94%. General: He is awake and alert, no acute distress. CV: Tachycardic and regular. Respiratory: No work of breathing. AKBAR drain is serosanguineous and 85 mL recorded overnight. LABS: White blood cell count 8000, hemoglobin 11, hematocrit 34. Drain fluid analysis is pending. ASSESSMENT AND PLAN: A 63-year-old male, status post pericardial window, postop day 1. We will leave the drain in another day or 2 and await fluid analysis. cc: Saji Rangel MD
[2018-08-25] MEDS ORDERED: LASIX IV ONE (08:52)
[2018-08-25] MEDS ORDERED: MAGNESIUM SULFATE 2 GM/S.W.I. 2 GM/50 ML IVPB IV ONE (08:54)
[2018-08-25] MEDS: LOPRESSOR PO SCH ×3 (09:38→21:15)
[2018-08-25] MEDS: BASAGLAR SUBQ SCH (09:38)
[2018-08-25] MEDS: ASPIRIN PO SCH (09:38)
[2018-08-25] MEDS: NEURONTIN PO SCH ×3 (09:38→21:15)
[2018-08-25] MEDS: TESSALON PO SCH ×3 (09:38→21:15)
[2018-08-25] MEDS: COLCRYS PO SCH ×2 (09:38→21:16)
[2018-08-25] MEDS: PREDNISONE PO SCH (09:38)
--- NOTE | 2018-08-25 10:05 | EKG Report ---
Test Performed on : 08/24/2018 4:52:36 PM Test Reason : Afib RVR Blood Pressure : / mmHG Vent. Rate : 107 BPM Atrial Rate : 107 BPM P-R Int : 164 ms QRS Dur : 088 ms QT Int : 338 ms P-R-T Axes : 029 007 035 degrees QTc Int : 451 ms Sinus tachycardia. Otherwise normal ECG No previous ECGs available Confirmed by Danny BLUNT, Raul Elizabeth ([id number]) on 08/26/2018 6:47:14 AM
--- NOTE | 2018-08-25 11:15 | CARDIOLOGY PROGRESS NOTE ---
DATE: 08/25/2018 SUBJECTIVE: Mr. Cifuentes reports a little bit of shortness of breath that seems to be worse with sitting up. His chest x-rays shows a little bit of pulmonary vascular congestion. OBJECTIVE: Vital signs: Patient is afebrile. Heart rate is around 100 beats per minute. Blood pressure is 131/86. General: He is in no acute distress. Cardiovascular: He sounds to be in a regular rate and rhythm. I did not hear any murmurs. He has no S3. Extremities: No lower extremity edema, warm, and well perfused lower extremities. Chest: Sounds relatively clear. No increased work of breathing. Abdomen: Soft, nontender. PERTINENT DATA: His sodium is 8.4, hematocrit 34.5, platelet count is 319,000. Sodium 138, potassium 4.1, BUN 18, creatinine 0.6. His magnesium level is 1.3. Albumin 3.0. ASSESSMENT: Mr. Cifuentes is a 63-year-old gentleman who presented with pericardial effusion. PLAN: He is status post window. Drains seemed to be putting out a relatively low amount. Fluid studies are not back and complete. I will stop his IV fluids and give him a one-time dose of Lasix, as he is a little bit short of breath, and his chest x-ray suggests vascular congestion. I will replete his magnesium which at this point, is 1.3. cc: Brandin Gross MD
--- NOTE | 2018-08-25 15:44 | PROGRESS NOTE ---
DATE: 08/25/2018 SUBJECTIVE: The patient has no major complaints. His breathing is a bit improved, but he is still requiring a decent amount of oxygen. OBJECTIVE: Vital signs: Blood pressure 132/74, heart rate of 98, respiratory rate 16, temperature 97.7 degrees, 95% on 4 L. Cardiovascular: Regular rate and rhythm. Pulmonary: Bilateral breath sounds clear to auscultation. Gastrointestinal: Soft, nontender, nondistended. Bowel sounds are positive. LABORATORY DATA: White count is 8, hemoglobin 11, hematocrit 34, platelets of 319,000. Basic was normal, glucose was 143. AST and ALT of 114 and 189. Procalcitonin was actually negative at 0.13. PROBLEM LIST: 1. Acute pericarditis with pericardial tamponade. He is status post window. He is currently on colchicine, prednisone, and antibiotics. Cultures are thus far negative. Pathology is still pending. Unclear etiology. 2. Hypotension, pericardial tamponade. That is improved since pericardiocentesis. 3. Pneumonia. We will continue empiric antibiotics. He does have a 40- to 45- pack-year history of smoking. He is on Rocephin and azithromycin. Continue pulmonary toilet. 4. Elevated liver enzymes are slowly improving. We just need to make sure we have screened him for hepatitis. 5. Peripheral vascular disease (PVD), stable currently. 6. Diabetes. This is overall well controlled. 7. Chronic obstructive pulmonary disease with hypoxia. I think we will repeat his chest x-ray in the next 24 hours. He has low lung volumes, so we do need to work on some ambulation and pulmonary toilet, and we will continue to follow. We will monitor in CI again for another 24 hours. cc: Wali Moore MD [facility]
[2018-08-25] MEDS ORDERED: CARDIZEM 100 MG/NS 100 MG/100 ML IVPB IV SCH (19:00)
[2018-08-25] MEDS: CARDIZEM IV ONE (20:53)
[2018-08-25] MEDS: ZITHROMAX 500 MG/NS 500 MG/250 ML IVPB IV SCH (21:14)
[2018-08-25] MEDS: ROCEPHIN 2 GM in NS 50 ML IV SCH (21:15)
[2018-08-25] MEDS: LOVENOX SUBQ SCH (21:16)
[2018-08-26] MEDS ORDERED: CARDIZEM IV ONE (00:15)
[2018-08-26] MEDS: CARDIZEM IV ONE (00:25)
[2018-08-26] MEDS: CARDIZEM 125 MG in NS 100 ML IV SCH ×2 (00:26→20:51)
[2018-08-26 05:53] LABS: BASO# 0.01 X1000 (0.0-0.2); BASO% 0.1 % (0.0-0.8); EOS# 0.02 X1000 (0.0-0.7); EOS% 0.3 % (0.0-10.0); HEMATOCRIT 33.7 % (42.0-52.0); HEMOGLOBIN 10.9 g/dL (14.0-18.0); IMM GRAN# 0.03 X1000 (0.0-0.04); IMM GRAN% 0.4 % (0.0-0.5); LYMPH# 1.08 X1000 (1.2-3.4); LYMPH% 14.7 % (20.5-51.1); MCH 28.8 PG (27-31); MCHC 32.3 g/dL (33-37); MCV 88.9 FL (81-99); MONO# 0.82 X1000 (0.11-0.59); MONO% 11.1 % (1.7-9.3); MPV 9.9 FL (7.4-10.4); NEUT# 5.41 X1000 (1.4-6.5); NEUT% 73.4 % (42.2-75.2); PLT 326 X1000 (130-400); RBC 3.79 XMIL (4.7-6.1); RDW 15.1 % (11.5-14.5); WBC 7.37 X1000 (4.8-10.8)
[2018-08-26] MEDS: PRILOSEC PO SCH (06:14)
[2018-08-26] MEDS: HUMALOG SUBQ SCH ×4 (06:14→21:23)
[2018-08-26 06:18] LABS: AGAP 10; BUN 13 mg/dL (8-22); CALCIUM 8.7 mg/dL (8.8-10.2); CHLORIDE 101 mmol/L (98-107); COSMO 284; CREATININE 0.5 mg/dL (0.7-1.2); ESTIMATED GFR > 60; GLUCOSE 253 mg/dL (70-104); POTASSIUM 3.8 mmol/L (3.5-5.1); SODIUM 138 mmol/L (136-145); TCO2 27 mmol/L (25-35)
--- NOTE | 2018-08-26 06:58 | EKG Report ---
Test Performed on : 08/25/2018 6:26:32 PM Test Reason : rate/rhythm change Blood Pressure : / mmHG Vent. Rate : 146 BPM Atrial Rate : 144 BPM P-R Int : 000 ms QRS Dur : 082 ms QT Int : 300 ms P-R-T Axes : 000 006 002 degrees QTc Int : 467 ms Atrial fibrillation. with rapid ventricular response. Nonspecific T wave abnormality Abnormal ECG When compared with ECG of 24-AUG-2018 16:52, (Unconfirmed) Atrial fibrillation. has replaced Sinus rhythm. Confirmed by Danny BLUNT, Raul Elizabeth ([id number]) on 08/26/2018 9:20:27 PM
[2018-08-26] MEDS: DUONEB (A & A) INH SCH ×5 (07:45→23:33)
[2018-08-26] MEDS: ASPIRIN PO SCH (08:17)
[2018-08-26] MEDS: COLCRYS PO SCH ×2 (08:17→20:51)
[2018-08-26] MEDS: LOPRESSOR PO SCH ×2 (08:17→20:51)
[2018-08-26] MEDS: BASAGLAR SUBQ SCH (08:18)
[2018-08-26] MEDS: NEURONTIN PO SCH ×3 (08:18→20:51)
[2018-08-26] MEDS: PREDNISONE PO SCH (08:18)
[2018-08-26] MEDS: TESSALON PO SCH ×3 (08:18→20:51)
--- NOTE | 2018-08-26 09:41 | GENERAL SURGERY PROGRESS NOTE ---
DATE: 08/26/2018 SUBJECTIVE: The patient is doing okay today. He feels a little tired and wants to get up and walk around. OBJECTIVE: Vital signs: He is afebrile. Vital signs are stable. AKBAR drain with 20 mL out of the last 24 hours and less than 5 mL over the last 12 hours. General: He is alert and oriented x3 in no acute distress. CV: Regular rate and rhythm. MICROBIOLOGY: Drain fluid is negative for culture growth. ASSESSMENT AND PLAN: A 63-year-old male status post pericardial window for pericardial effusion and tamponade. He is improved. The drain output is scant. I removed it today at the bedside. He can follow up with me next week for staple removal. cc: Saji Rangel MD
--- NOTE | 2018-08-26 12:00 | EKG Report ---
Test Performed on : 08/25/2018 8:37:34 PM Test Reason : rhythm change Blood Pressure : / mmHG Vent. Rate : 103 BPM Atrial Rate : 103 BPM P-R Int : 146 ms QRS Dur : 088 ms QT Int : 364 ms P-R-T Axes : 019 -04 015 degrees QTc Int : 476 ms Sinus tachycardia. Low voltage QRS Borderline ECG No previous ECGs available Confirmed by Danny BLUNT, Raul Elizabeth ([id number]) on 08/26/2018 9:20:37 PM
[2018-08-26] MEDS ORDERED: LASIX IV ONE ×2 (13:35→15:36)
--- NOTE | 2018-08-26 13:47 | Diag Imaging Result Doc PS360 ---
EXAM: CHEST-PORTABLE INDICATION: dyspnea TECHNIQUE: One view COMPARISON: 08/25/2018 FINDINGS: Subsegmental atelectasis at the right midlung zone has improved. Pulmonary venous congestion is approximately stable. There is now likely a small left pleural effusion that has developed. Cardiac silhouette is stable. IMPRESSION: Likely development of a small left effusion. Improvement of right midlung zone atelectasis. Essentially stable chest, otherwise. Electronically signed by Yordan Josue 08/26/2018 1:44 PM
[2018-08-26] MEDS: ULTRAM PO PRN (15:23)
--- NOTE | 2018-08-26 15:36 | PROGRESS NOTE ---
DATE: 08/26/2018 SUBJECTIVE: The patient still feels short of breath. He does not look quite as in extremis, but nurse reports a very difficult time breathing with short exertions, just even around the room. He has persistent shortness of breath. OBJECTIVE: Vital Signs: Blood pressure 128/77, heart rate 89, respiratory rate 23, temperature 97.6 degrees, 93% on 4 L. Cardiovascular: Regular rate and rhythm. Pulmonary: Bilateral breath sounds. Clear to auscultation. Gastrointestinal: Soft, nontender, nondistended. Bowel sounds are positive. LABORATORY DATA: White count 7, hemoglobin and hematocrit of 10 and 33, platelets 326. Creatinine is 0.5. PROBLEM LIST: 1. Acute pericarditis with pericardial tamponade. He is status post window. He is currently on colchicine, prednisone, antibiotics. Culture and etiology are unclear. His drain is out. 2. Hypotension. Continue to follow, status post pericardiocentesis. Drain has been removed today. We will continue to monitor. 3. Pneumonia. He is on Rocephin and azithromycin. We will continue to follow. 4. Mild elevation in liver enzymes. We will continue to track closely. 5. Diabetes, overall controlled. 6. Chronic obstructive pulmonary disease. He is still somewhat dyspneic. He is on breathing treatments. I think he is off the Cardizem, but I will have to evaluate that, and we will initiate some diuretics and see how that helps. 7. Diabetes appears to be stable. We will continue to monitor. DISPOSITION: Pending clinical improvement. Still probably several days away from discharge, and he will likely need home oxygen at the time of discharge. cc: Wali Moore MD
--- NOTE | 2018-08-26 17:52 | CARDIOLOGY PROGRESS NOTE ---
DATE: 08/26/2018 SUBJECTIVE: Mr. Cifuentes reports his breathing is somewhat better today. PHYSICAL EXAMINATION: Vital signs: He is afebrile. Heart rate 89, his blood pressure is 128/77. His I's and O's appear to be negative over the course of the last 24 hours. General: No acute distress. Cardiovascular: He sounds to be in a regular rate and rhythm. He has had no murmurs. No S3. He has no lower extremity edema. Chest: Exam is mildly diminished in the bilateral bases. He has no increased work of breathing. Abdomen: Soft, nontender. PERTINENT DATA: White count 7.4, hematocrit 33, platelet count 326. His sodium is 138, potassium 3.8, BUN 13, creatinine 0.5. ASSESSMENT: Mr. Cifuentes is a 63-year-old gentleman, who presented with a pericardial effusion in early tamponade. PLAN: His drain was pulled today. I will give him another small dose of Lasix as he does have diminished breath sounds and his chest x-ray is suggesting a mild amount of pulmonary vascular congestion. He has had some periodic bouts of atrial fibrillation during this hospitalization. I have increased his metoprolol to 50 b.i.d. In addition, I will start him on Eliquis 5 mg b.i.d. and discontinue the prophylactic Lovenox. We will check an echo in the morning as well as a CRP for further evaluations of the pericardial effusion. cc: Brandin Gross MD
[2018-08-26] MEDS: ELIQUIS PO SCH (20:51)
[2018-08-26] MEDS: ROCEPHIN 2 GM in NS 50 ML IV SCH (20:52)
[2018-08-26] MEDS: ZITHROMAX 500 MG/NS 500 MG/250 ML IVPB IV SCH (21:21)
[2018-08-27] MEDS: LASIX IV SCH ×2 (01:57→17:15)
[2018-08-27] MEDS: ULTRAM PO PRN (03:39)
[2018-08-27 05:28] LABS: EOS# 0.01 X1000 (0.0-0.7); EOS% 0.1 % (0.0-10.0); HEMATOCRIT 37.6 % (42.0-52.0); HEMOGLOBIN 12.1 g/dL (14.0-18.0); IMM GRAN# 0.04 X1000 (0.0-0.04); IMM GRAN% 0.4 % (0.0-0.5); LYMPH# 1.15 X1000 (1.2-3.4); MCH 28.3 PG (27-31); MCHC 32.2 g/dL (33-37); MCV 88.1 FL (81-99); MONO# 0.68 X1000 (0.11-0.59); MONO% 6.5 % (1.7-9.3); MPV 9.9 FL (7.4-10.4); NEUT# 8.62 X1000 (1.4-6.5); PLT 401 X1000 (130-400); RBC 4.27 XMIL (4.7-6.1); RDW 14.9 % (11.5-14.5)
[2018-08-27 05:49] LABS: AGAP 10; BUN 13 mg/dL (8-22); CALCIUM 8.9 mg/dL (8.8-10.2); CHLORIDE 95 mmol/L (98-107); COSMO 282; CREATININE 0.5 mg/dL (0.7-1.2); ESTIMATED GFR > 60; GLUCOSE 283 mg/dL (70-104); MAGNESIUM 1.2 mg/dL (1.5-2.7); POTASSIUM 3.7 mmol/L (3.5-5.1); SODIUM 136 mmol/L (136-145); TCO2 31 mmol/L (25-35)
[2018-08-27] MEDS: PRILOSEC PO SCH (06:42)
[2018-08-27] MEDS: HUMALOG SUBQ SCH ×4 (06:44→20:55)
[2018-08-27] MEDS: DUONEB (A & A) INH SCH ×5 (07:43→23:25)
[2018-08-27] MEDS: LOPRESSOR PO SCH ×2 (08:55→20:54)
[2018-08-27] MEDS: TESSALON PO SCH ×3 (08:55→20:54)
[2018-08-27] MEDS: PREDNISONE PO SCH (08:55)
[2018-08-27] MEDS: COLCRYS PO SCH ×2 (08:55→20:54)
[2018-08-27] MEDS: ELIQUIS PO SCH ×2 (08:55→20:54)
[2018-08-27] MEDS: NEURONTIN PO SCH ×3 (08:55→20:54)
[2018-08-27] MEDS: ASPIRIN PO SCH (08:56)
[2018-08-27] MEDS: BASAGLAR SUBQ SCH (08:56)
[2018-08-27] MEDS ORDERED: MAGNESIUM SULFATE 2 GM/S.W.I. 2 GM/50 ML IVPB IV ONE (12:30)
[2018-08-27] MEDS: CARDIZEM 125 MG in NS 100 ML IV SCH (12:55)
--- NOTE | 2018-08-27 14:52 | GENERAL SURGERY PROGRESS NOTE ---
DATE: 08/27/2018 Mr. Cifuentes is post pericardial drainage. His wound likes fine. His drain site looks fine. No new plans. cc: Rakesh Bray MD
--- NOTE | 2018-08-27 15:29 | CARDIOLOGY PROGRESS NOTE ---
DATE: 08/27/2018 SUBJECTIVE: The patient reports that he feels better this morning. His breathing has improved. PHYSICAL EXAMINATION: Vital Signs: Afebrile, heart rate 88. His blood pressure is 138/69. General: He is in no acute distress. Cardiovascular: He sounds to be in a regular rate and rhythm. He has no murmurs. Telemetry currently shows sinus. He has no lower extremity edema. Chest: Exam sounds relatively clear to auscultation bilaterally. He has no increased work of breathing. Abdomen: Soft, nontender. PERTINENT DATA: His I's and O's are negative, a significant load over the last 24 hours. His cumulative input and output is -8 L. His lab data shows a white count of 10.5, hematocrit 37, his platelet count is 401,000. His sodium is 136, potassium 3.7, his magnesium level is 1.2. His CRP is down to 35. ASSESSMENT: Mr. Cifuentes is a 63-year-old gentleman who presented with a pericardial effusion and tamponade. PLAN: The drain has been pulled. His echo this morning does not really show any significant accumulation. I have decreased his steroids to 20 mg. We will continue him on the colchicine. I will replete his magnesium. cc: Brandin Gross MD
--- NOTE | 2018-08-27 18:40 | PROGRESS NOTE ---
DATE: 08/27/2018 SUBJECTIVE: Patient has no focal complaints. OBJECTIVE: Vital Signs: Blood pressure 132/101, heart rate of 84, respiratory rate 18, temperature 97.8, 96% on 3 L. Cardiovascular: Regular rate and rhythm. Pulmonary: Bilateral breath sounds. Clear to auscultation. GI: Was soft, nontender, nondistended. Bowel sounds were positive. Extremities: No clubbing or cyanosis. Lymphatic exam: No peripheral edema. Neurological: Exam was nonfocal. Pulmonary exam: Occasional rales. No wheezes. No rhonchi. LABORATORY DATA: His white count is 10, hemoglobin and hematocrit 12 and 37, platelets 401. Basic was normal. Mag was 1.2 with a CRP of 35,000. PROBLEM LIST: 1. Pericarditis with pericardial tamponade, status post pericardial window. He is doing better. Currently on colchicine, some low-dose steroids and that issue seems to be resolving. 2. Respiratory failure with hypoxia, unclear related COPD versus volume. He is getting some diuretics and he seems a little bit better today, so we are going to continue that for the time being. 3. Pneumonia. He is on Rocephin and azithromycin. Azithromycin has been for 4 days, Rocephin for 4 days. 4. Diabetes, appears well controlled. We will continue his medications. 5. Chronic obstructive pulmonary disease. Continue breathing treatments and follow. DISPOSITION: I think probably getting close. I am going to order some PT. We may be able to move him to the regular floor soon. We will repeat his chest x-ray tomorrow. He is on Eliquis for anticoagulation. He is on Prilosec. Still not completely clear whether pericarditis as a result to, unless it was purely autoimmune, his CRP is elevated, but I do not think that is diagnostic unfortunately. cc: Wali Moore MD
--- NOTE | 2018-08-27 20:01 | ECHO REPORT ---
ORDER DATE: 08/27/2018 STUDY: Limited echo. INDICATION: Evaluate for pericardial effusion, status post window with drain removal. FINDINGS: 1. The right ventricle appears to have normal size and systolic function. 2. Normal RV size and systolic function. The estimated EF is greater than 55%. 3. No mitral valve prolapse. The aortic valve appears to open well. There is mild mitral regurgitation. 4. There is no clear evidence of pericardial effusion identified on this study. This study was limited with an incomplete Doppler in 2 dimensional views. It was focused on the pericardial space. cc: Brandin Gross MD
[2018-08-27] MEDS: ROCEPHIN 2 GM in NS 50 ML IV SCH (20:54)
[2018-08-27] MEDS: ZITHROMAX 500 MG/NS 500 MG/250 ML IVPB IV SCH (20:55)
[2018-08-28] MEDS: LASIX IV SCH (04:33)
[2018-08-28 05:38] LABS: BASO# 0.01 X1000 (0.0-0.2); BASO% 0.1 % (0.0-0.8); EOS# 0.01 X1000 (0.0-0.7); EOS% 0.1 % (0.0-10.0); HEMATOCRIT 40.5 % (42.0-52.0); HEMOGLOBIN 13.3 g/dL (14.0-18.0); IMM GRAN# 0.03 X1000 (0.0-0.04); IMM GRAN% 0.2 % (0.0-0.5); LYMPH# 1.59 X1000 (1.2-3.4); LYMPH% 12.7 % (20.5-51.1); MCH 28.6 PG (27-31); MCHC 32.8 g/dL (33-37); MCV 87.1 FL (81-99); MONO# 0.67 X1000 (0.11-0.59); MONO% 5.4 % (1.7-9.3); MPV 9.9 FL (7.4-10.4); NEUT# 10.19 X1000 (1.4-6.5); NEUT% 81.5 % (42.2-75.2); PLT 456 X1000 (130-400); RBC 4.65 XMIL (4.7-6.1); RDW 14.6 % (11.5-14.5)
[2018-08-28 06:02] LABS: AGAP 13; BUN 13 mg/dL (8-22); CALCIUM 9.4 mg/dL (8.8-10.2); CHLORIDE 94 mmol/L (98-107); COSMO 284; CREATININE 0.6 mg/dL (0.7-1.2); ESTIMATED GFR > 60; GLUCOSE 246 mg/dL (70-104); POTASSIUM 3.7 mmol/L (3.5-5.1); SODIUM 138 mmol/L (136-145); TCO2 31 mmol/L (25-35)
[2018-08-28] MEDS: HUMALOG SUBQ SCH ×4 (06:04→21:59)
[2018-08-28] MEDS: PRILOSEC PO SCH (06:04)
[2018-08-28] MEDS: DUONEB (A & A) INH SCH ×4 (07:35→19:15)
[2018-08-28] MEDS: BASAGLAR SUBQ SCH (08:46)
[2018-08-28] MEDS: TESSALON PO SCH ×3 (08:47→21:58)
[2018-08-28] MEDS: ASPIRIN PO SCH (08:47)
[2018-08-28] MEDS: NEURONTIN PO SCH ×3 (08:47→21:56)
[2018-08-28] MEDS: PREDNISONE PO SCH (08:47)
[2018-08-28] MEDS: ELIQUIS PO SCH ×2 (08:48→21:56)
[2018-08-28] MEDS: LOPRESSOR PO SCH ×2 (08:48→21:58)
[2018-08-28] MEDS: COLCRYS PO SCH ×2 (08:48→21:56)
--- NOTE | 2018-08-28 10:51 | Diag Imaging Result Doc PS360 ---
EXAM: CHEST-2 VIEWS - 08/28/2018 HISTORY: hypoxia TECHNIQUE: Chest two views COMPARISON: 08/26/2018 portable chest FINDINGS: Heart size appears upper normal. There is a small left pleural effusion. There is mild atelectasis or infiltrate at the posterior left base. These appear overall mildly decreased compared to prior. There are no other acute changes identified. IMPRESSION: Overall mild decrease in left basilar opacity compared to prior. Electronically signed by Alonso Fatima 08/28/2018 10:49 AM
--- NOTE | 2018-08-28 12:59 | PROGRESS NOTE ---
DATE: 08/28/2018 SUBJECTIVE: He looks much better today. No major complaints. OBJECTIVE: The patient is doing well. Blood pressure 190/72, heart rate 93, respiratory rate 16, temperature 98.1 degrees, 99/4 now. The ins and outs, looking like I do not think this is 8 L. I think, because that is a total since he has been here, 970, so he has been about 5 L negative since yesterday but 4 L before that and 3 L before that so he is diuresing pretty well which is helping his respiratory status, although he still has a persistent O2 requirement of O2. Cardiovascular: Regular rate and rhythm. Pulmonary: Rales at the bases. No wheezing. GI: Soft, nontender, nondistended. Peripheral edema, no peripheral edema noted on extremity exam. Laboratory Data: His white count is 12, hemoglobin and hematocrit 13 and 40, platelets 456,000. Creatinine 0.6, sugar 258. CRP is down to 35. Chest x-ray shows improving left basilar infiltrate. ASSESSMENT: 1. Pericarditis, pericardial tamponade, status post pericardial window per Dr. Rangel. He is on colchicine. Repeat echocardiogram shows minimal fluid. He is on prednisone which is being titrated down per Dr. Gross and probably explains his leukocytosis. 2. Acute respiratory failure with hypoxia related to chronic obstructive pulmonary disease, pneumonia, volume overload. I will continue diuretics because they seem to be helping. He is on breathing treatments and we will continue to follow. 3. Pneumonia. He is on resume Rocephin, azithromycin, day 5. 4. Diabetes. He will continue his regular medications. He is still not completely controlled. Probably some degree of hypoxemia stress. He is on Lantus at 25. I am probably going to bump it up to 30 and see how he does. 5. Disposition. Pending his clinical status. He is working with physical therapy. He seems to be doing better. I anticipate he could go home with physical therapy maybe the next day or two, but I think he will need home oxygen prior to discharge. We will discuss with cardiology about discharge planning from their standpoint. cc: Wali Moore MD
--- NOTE | 2018-08-28 13:18 | CARDIOLOGY PROGRESS NOTE ---
DATE: 08/28/2018 SUBJECTIVE: Mr. Cifuentes feels like he is breathing better today. PHYSICAL EXAMINATION: Vital Signs: He is afebrile. Heart rate of 93, blood pressure 119/72. General: He is in no acute distress. Cardiovascular: He sounds to be in a regular rate and rhythm. I do not hear any obvious murmurs. He has no S3. He has no lower extremity edema. Chest Examination: Sounds relatively clear. No increased work of breathing. Abdomen: Soft, nontender, nondistended. PERTINENT DATA: His sodium is 138, potassium 3.7, BUN 13, creatinine 0.6. ASSESSMENT: Mr. Cifuentes is a 63-year-old gentleman who presented with a pneumonia as well as pericardial effusion. PLAN: Patient seems to be doing better. The drain is out. Yesterday, his echocardiogram did not show any reaccumulation of his pericardial effusion. His steroids have been decreased. He is on colchicine. We will continue on the current anti-inflammatories and possibly half his steroid dose again tomorrow. Would like to try to get him off of the steroids as quickly as we could so that we do not have a prolonged steroid treatment and potential for rebound pericarditis. cc: Brandin Gross MD
[2018-08-28] MEDS: ROCEPHIN 2 GM in NS 50 ML IV SCH (21:57)
[2018-08-28] MEDS ORDERED: INSULIN PEN NEEDLES ONE (21:58)
[2018-08-28] MEDS: ZITHROMAX 500 MG/NS 500 MG/250 ML IVPB IV SCH (22:15)
[2018-08-29] MEDS: DUONEB (A & A) INH SCH ×3 (01:52→11:09)
[2018-08-29 06:46] LABS: BASO# 0.01 X1000 (0.0-0.2); BASO% 0.1 % (0.0-0.8); EOS# 0.09 X1000 (0.0-0.7); EOS% 0.8 % (0.0-10.0); IMM GRAN# 0.03 X1000 (0.0-0.04); IMM GRAN% 0.3 % (0.0-0.5); LYMPH# 2.03 X1000 (1.2-3.4); LYMPH% 19.2 % (20.5-51.1); MCH 28.5 PG (27-31); MCHC 32.5 g/dL (33-37); MCV 87.7 FL (81-99); MONO# 0.67 X1000 (0.11-0.59); MONO% 6.3 % (1.7-9.3); MPV 9.6 FL (7.4-10.4); NEUT# 7.76 X1000 (1.4-6.5); NEUT% 73.3 % (42.2-75.2); PLT 419 X1000 (130-400); RBC 4.56 XMIL (4.7-6.1); RDW 14.5 % (11.5-14.5); WBC 10.59 X1000 (4.8-10.8)
[2018-08-29 07:06] LABS: AGAP 11; BUN 11 mg/dL (8-22); CALCIUM 9.2 mg/dL (8.8-10.2); CHLORIDE 97 mmol/L (98-107); COSMO 285; CREATININE 0.5 mg/dL (0.7-1.2); ESTIMATED GFR > 60; GLUCOSE 203 mg/dL (70-104); POTASSIUM 3.3 mmol/L (3.5-5.1); SODIUM 140 mmol/L (136-145); TCO2 32 mmol/L (25-35)
[2018-08-29] MEDS: ASPIRIN PO SCH (08:49)
[2018-08-29] MEDS: PREDNISONE PO SCH (08:49)
[2018-08-29] MEDS: ELIQUIS PO SCH (08:49)
[2018-08-29] MEDS: NEURONTIN PO SCH (08:49)
[2018-08-29] MEDS: PRILOSEC PO SCH (08:49)
[2018-08-29] MEDS: LOPRESSOR PO SCH (08:50)
[2018-08-29] MEDS: COLCRYS PO SCH (08:50)
[2018-08-29] MEDS: HUMALOG SUBQ SCH ×2 (08:50→10:53)
[2018-08-29] MEDS: TESSALON PO SCH (08:50)
[2018-08-29] MEDS ORDERED: LASIX IV SCH (09:00)
[2018-08-29] MEDS ORDERED: BASAGLAR SUBQ SCH (09:00)
[2018-08-29 12:11] VITALS: BP 104/65
--- NOTE | 2018-08-29 13:03 | CARDIOLOGY PROGRESS NOTE ---
DATE: 08/29/2018 SUBJECTIVE: Mr. Cifuentes reports he is doing well. He is ambulating around with a walker. His breathing has improved. PHYSICAL EXAMINATION: Vital Signs: He is afebrile. Heart rates appear to be predominantly in the 80s to 90s. His blood pressure is 104/65 most recently. Most systolics appear to be in the 130s to 146. General: He is in no acute distress. Cardiovascular: He sounds to be in a regular rate and rhythm. I do not hear any obvious murmurs. He has no S3. He has no lower extremity edema. Chest: Exam is clear bilaterally. He has no increased work of breathing. Abdomen: Soft, nontender. PERTINENT DATA: He has a white count of 10.6. His hematocrit is 40. His platelet count is 419,000. His sodium is 140, potassium 3.3, BUN 11, creatinine 0.5. ASSESSMENT: Mr. Cifuentes is a 63-year-old gentleman who presented with pericarditis. PLAN: Drain is out. His followup echo after drain removal has shown no increase in his pericardial effusion. His C-reactive protein has reduced. We are trying to wean him off the steroids. I will cut the dose from 20 mg daily down to 10 mg daily. Will continue the colchicine. Hopefully, we can continue the steroids for a few days and then discontinue them altogether. I will plan on seeing him back in the office and have a CRP checked, and an echocardiogram at that time, and then consider reducing down on colchicine if the CRP has normalized. cc: Brandin Gross MD
--- NOTE | 2018-08-30 01:19 | DISCHARGE SUMMARY ---
ADMISSION DATE: 08/22/2018 DISCHARGE DATE: 08/29/2018 DISPOSITION: Home. FOLLOW-UP: 1. Dr. Moody. 2. Dr. Rangel. 3. Dr. Gross. CONSULTATIONS DURING THIS ADMISSION: Cardiology was consulted, the patient was seen by Dr. Brandin Gross. Surgery was consulted, the patient was seen by Dr. Rangel followed by Dr. Bray. INVASIVE PROCEDURES DONE DURING THIS ADMISSION: A pericardial window was done by Dr. Cordova on 08/24/2018. IMAGING STUDIES OF SIGNIFICANCE: 1. A chest x-ray was done on presentation which showed mildly prominent central vascular, possibly mild pulmonary venous congestion and minimal subsegmental atelectasis. 2. A CT scan of the chest showed bilateral pleural and pericardial effusion, ascites and anasarca. 3. An echocardiogram showed pericardial effusion with tamponade. 4. Extremity Doppler was unremarkable. ADMISSION DIAGNOSES: 1. Hypertension. 2. Transaminitis. 3. Acute kidney injury. 4. Chronic obstructive pulmonary disease. 5. Pericarditis. DIAGNOSES AT THE TIME OF DISCHARGE: 1. Acute hypoxemic respiratory failure, improved. 2. Pericarditis with tamponade. The patient is status post pericardial window. 3. 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 4. Diabetes mellitus, stable. 5. Paroxysmal atrial fibrillation, currently rate controlled. The patient has been started on metoprolol and Eliquis for stroke prophylaxis. DISCHARGE MEDICATIONS: 1. Omeprazole 40 mg daily. 2. Gabapentin 400 three times per day. 3. Iron sulfate. 4. Linagliptin 5 mg daily. 5. Insulin sliding scale. 6. Aspirin 81 mg daily. 7. Robaxin 500 p.o. daily. 8. Eliquis 5 mg b.i.d. 9. Colchicine 0.6 b.i.d. 10. Metoprolol 50 mg b.i.d. 11. Prednisone 10 mg daily for 3 days. PRESENTING COMPLAINT: Worsening shortness of breath and weakness. HISTORY OF PRESENTING COMPLAINT: Mr. Cifuentes is a 63-year-old male who presented to the emergency department on the day of admission because of progressively worsening weakness and shortness of breath. Upon presentation the patient was evaluated, found to be with systolic pressures in the 70s. The patient was lightheaded. Imaging studies did reveal pericardial effusion. The patient was subsequently admitted for further medical care. HOSPITAL COURSE: Mr. Cifuentes was admitted to the medical floor under telemonitoring. Echocardiogram was done the following day, it revealed features concerning for pericardial tamponade. Surgery was consulted as well as Cardiology, and a pericardial window was done. Biopsy of the of the pericardium showed pericardial tissue with mild patchy chronic inflammation and edema, but there was no malignancy. The fluid analysis was also compatible with elevated white cell count, but predominantly lymphocytic which would be suggestive of possible viral in etiology. Culture was unremarkable. During the hospital course Mr. Cifuentes continued to improve and became more stronger. Unfortunately during the hospital course there were multiple times that his heart went into atrial fibrillation RVR. Cardiology started him on metoprolol and Eliquis. This morning he feels a lot better, he was sitting up in a chair, he was eating without any complaints. His current vitals, blood pressure is 104/65, pulse is 103, respirations 17, temperature is 98.1 degrees. Physical exam is completely unremarkable except the fresh surgical scar under the subxiphoid area which is a front-end with surgical clips and it looks clean. The drain system has been removed. Mr. Cifuentes is currently clinically stable for discharge. Cardiology actually called me and told me that from their standpoint they think Mr. Cifuentes can be discharged. Mr. Cifuentes was started on steroid, unsure of the reason but in any case Cardiology is trying to wean him off, so will give him only three 10 mg for home just to make sure that he does not go into acute withdrawal and go into adrenal insufficiency. All the discharge instructions have been discussed with Mr. Cifuentes and he voices understanding. There was not any other family member at the bedside at the time of the discharge. Time spent for discharge is 36 minutes. cc: MD Jeremiah Nieto MD Jason R. Seale, MD Peter Johnson, MD
[2018-08-30] MEDS ORDERED: PREDNISONE PO SCH (09:00)
== END 2018-08-29 14:14 | disposition home or self-care (01) | DRG 853 ==
LOC: SUPCPDRO → ED 15:23 → EDIPHOLD 21:00 → SUATTDRO 21:00 → 3S 08-23 12:32 → 4N 08-28 15:46
PROVIDERS: ATTEND Internal Medicine
CPT/HCPCS: 71010; 71020; 71045; 71046; 71250; 80048; 80053; 80076; 81001; 82550; 82945; 82948; 83605; 83615; 83735; 83880; 84145; 84155; 84443; 84484; 85025; 85610; 85651; 85730; 86140; 87040; 87070; 87075; 87081; 87205; 87275; 87276; 87430; 87449; 87804; 87899; 88305; 89051; 93005; 93010; 93306; 93308; 93923; 94640; 94761; 94762; 94799; 96361; 96365; 96368; 96372; 97116; 97161; 97530; 99285; A9270; J0456; J0696; J1650; J1815; J1940; J2370; J2405; J3010; J3475; J7030; J7506; J7512; XXXXX

== ENCOUNTER 2018-09-04 22:36 | Inpatient (IN) ==
[2018-09-04] MEDS ORDERED: ZOSYN 3.375 GM in NS 50 ML IV ONE (22:55)
[2018-09-04] MEDS ORDERED: VANCOMYCIN 1 GM/NS 1 GM/250 ML IVPB IV ONE (22:55)
[2018-09-04] MEDS ORDERED: NS 3,300 ML IV ONE (22:56)
[2018-09-04 23:10] LABS: BASO# 0.02 X1000 (0.0-0.2); BASO% 0.1 % (0.0-0.8); EOS# 0.01 X1000 (0.0-0.7); HEMATOCRIT 40.1 % (42.0-52.0); HEMOGLOBIN 13.6 g/dL (14.0-18.0); IMM GRAN# 0.09 X1000 (0.0-0.04); IMM GRAN% 0.4 % (0.0-0.5); LYMPH# 1.41 X1000 (1.2-3.4); LYMPH% 6.4 % (20.5-51.1); MCH 28.8 PG (27-31); MCHC 33.9 g/dL (33-37); MONO# 1.68 X1000 (0.11-0.59); MONO% 7.6 % (1.7-9.3); MPV 10.1 FL (7.4-10.4); NEUT# 18.82 X1000 (1.4-6.5); NEUT% 85.5 % (42.2-75.2); PLT 280 X1000 (130-400); RBC 4.72 XMIL (4.7-6.1); RDW 14.8 % (11.5-14.5); WBC 22.03 X1000 (4.8-10.8)
[2018-09-04 23:21] LABS: ALLEN TEST YES; BLOOD TYPE ARTERIAL; HCO3-(ACT) 27.1 mmoll (20.0-26.0); METHB 1.2 % (0.0-1.5); MODALITY CANNULA; O2(CT) 17.4 mL/dL (15.0-23.0); O2HB 92.3 % (95.0-99.0); PCO2(98.6) 31 mmHg (35-45); PO2(98.6) 66 mmHg (60-100); SAMPLE BLOOD; SAO2 95.8 % (95.0-100.0); THB 13.4 g/dL (11.5-17.4); pH(98.6) 7.52 (7.35-7.45)
[2018-09-04 23:21] LABS: INR 1.23; PROTIME 16.5 Seconds (11.0-16.0)
[2018-09-04 23:22] LABS: PTT 35.8 Seconds (22.3-41.8)
[2018-09-04 23:26] LABS: AGAP 14; ALB/GLOB RATIO 1.1; ALBUMIN 3.1 g/dL (3.5-5.0); ALKALINE PHOSPHATASE 113 U/L (32-122); BUN 17 mg/dL (8-22); CALCIUM 8.8 mg/dL (8.8-10.2); CHLORIDE 92 mmol/L (98-107); CK PROFILE 85 U/L (24-204); COSMO 269; CREATININE 0.6 mg/dL (0.7-1.2); ESTIMATED GFR > 60; GLUCOSE 211 mg/dL (70-104); GOT 15 U/L (10-34); GPT 21 U/L (10-44); MAGNESIUM 1.3 mg/dL (1.5-2.7); POTASSIUM 4.1 mmol/L (3.5-5.1); SODIUM 130 mmol/L (136-145); TCO2 24 mmol/L (25-35); TOTAL BILIRUBIN 0.76 mg/dL (0.20-1.00)
[2018-09-04 23:33] LABS: URINE SOURCE CATH
[2018-09-04 23:39] LABS: UR EPITHELIAL CELLS <10 /HPF (<10); URINE BACTERIA NEGATIVE /HPF; URINE RBC <10 /HPF (<10); URINE WBC <10 /HPF (<10)
[2018-09-04] MEDS ORDERED: GAVISCON PO ONE (23:42)
[2018-09-04 23:49] LABS: BILIRUBIN URINE SMALL (NEGATIVE); BLOOD URINE MODERATE (NEGATIVE); COLOR YELLOW; GLUCOSE URINE 100 mg/dL (NEGATIVE); KETONE URINE 80 mg/dL (NEGATIVE); LEUKOCYTES URINE NEGATIVE (NEGATIVE); NITRITE URINE NEGATIVE (NEGATIVE); PROTEIN URINE 600 mg/dL (NEGATIVE); SP GRAVITY URINE 1.031; TURBIDITY URINE CLEAR (CLEAR); UROBILINOGEN URINE 4 mg/dL (NORMAL)
[2018-09-05] MEDS ORDERED: XYLOCAINE 1% ONE (01:49)
--- NOTE | 2018-09-05 02:02 | PROVIDER DOCUMENTATION ---
This chart was entered by Mei Hurd Scribe, acting as scribe for Pardeep Ramirez MD. HPI-General Adult - General Chief Complaint: Weakness Stated Complaint: weakness Time Seen by Provider: 09/04/18 22:45 Source: patient, EMS Allergies/Adverse Reactions: Patient Allergies Allergy/AdvReac Type Severity Reaction Status Date / Time [id number] Reductase AdvReac Unknown Verified 08/23/18 08:37 Inhibitor Home Medications: Home Medication List Medication Instructions Recorded Confirmed Last Taken Type Gabapentin 400 mg PO TID 06/14/18 09/05/18 09/04/18 History Omeprazole 40 mg PO DAILY 06/14/18 09/05/18 09/04/18 History Docusate Sodium [Colace] 200 mg PO QHS capsule 06/20/18 09/05/18 09/04/18 Rx Insulin Lispro [Humalog] See Protocol SUBQ 4XDAY PRN PRN 08/23/18 09/05/1809/04 History Linagliptin [Tradjenta] 5 mg PO DAILY 08/23/18 09/05/18 09/04/18 History Methocarbamol [Robaxin] 500 mg PO DAILY PRN 08/23/18 09/05/18 09/04/18 History Aspirin 81 mg PO DAILY chewtab 08/29/18 09/05/18 09/04/18 Rx Colchicine [Colcrys] 0.6 mg PO BID #60 tab 08/29/18 09/05/18 09/04/18 Rx Metoprolol [Lopressor] 50 mg PO BID #120 tab 08/29/18 09/05/18 09/04/18 Rx Cholecalciferol (Vitamin D3) 5,000 unit PO DAILY 09/05/18 09/05/18 09/04/18 History [Vitamin D3] - History of Present Illness -Gen Adult Nature of Presenting Problems: Pt is 63/M presenting to ED via EMS. Pt is here for generalized weakness. He was in the ED a week prior and had cardiac tamponade and a pericardial window put in. He has some confusion but sts that he has been weak since he got home. He also says that he has not had a BM in 2 weeks "he doesn't think" Pt has home health for diabetic ulcer that is is under great toe on R foot. Son at bedside sts that he has been in steady decline for the last 2 days. Location of Pain/Injury: reports: generalized (generalized body weakness) Pain Radiation: reports: no radiation Quality of Pain: reports: none Severity: reports: severe Onset/Duration: reports: 3 days ago Timing: reports: still present Context/Activities at Onset: reports: none Modifying Factors: improves with: nothing Associated Symptoms: reports: cough, fever/chills (99.9), weakness. denies: headaches, shortness of breath Similar Symptoms Previously?: No Recently seen or treated by another doctor?: Yes Review of Systems - Adult - REVIEW OF SYSTEMS - ADULT Constitutional: reports: fever. denies: chills Eyes: reports: no symptoms reported Ears, Nose, Mouth & Throat: reports: no symptoms reported Cardiovascular: reports: no symptoms reported. denies: chest pain, edema Respiratory: reports: cough. denies: shortness of breath Gastrointestinal: denies: diarrhea, vomiting Genitourinary: reports: no symptoms reported Musculoskeletal: reports: no symptoms reported Integumentary: reports: no symptoms reported Neurological: reports: no symptoms reported. denies: dizziness/vertigo, headache/migraines Psychiatric: reports: no symptoms reported Endocrine: reports: no symptoms reported Hematologic/Lymphatic: reports: no symptoms reported Allergic/Immunologic: reports: no symptoms reported All Other Systems: Reviewed and Negative Past History - Adult - PAST MEDICAL HISTORY-ADULT Review of Records: reports: Old Records Reviewed, Nursing Assessment Review, Medications Reviewed, Social history reviewed & non-contributory. Major Childhood Illnesses: reports: denies history Cardiovascular: reports: HTN, hyperlipidemia Respiratory: reports: sleep apnea Gastrointestinal: reports: denies history Obstetrical/Gynecological: reports: denies history Genitourinary: reports: dialysis Musculoskeletal: reports: denies history Neurological: reports: denies history Endocrine/Immune: reports: Diabetes Other Conditions: reports: denies history - PRIOR SURGERIES/PROCEDURES Surgical/Procedure History: reports: tonsillectomy - IMMUNIZATION STATUS Childhood Immunizations: See Nurse Assessment Flu Vaccine: See Nurse Assessment - FAMILY HISTORY Family History: reviewed, not pertinent - SOCIAL HISTORY Smoking: cigarettes, greater than 1 pack/day Alcohol Use Frequency: never Living Situation: family Physical Exam-General - PHYSICAL EXAM-ADULT Initial Vital Signs Reviewed: Yes - CONSTITUTIONAL General Appearance: alert, other (pt appears sick and is confused during exam) - EYES Eyes: PERRL/EOMI, pink conjunctivae - HEAD, EARS, NOSE, MOUTH & THROAT HENMT: normocephalic/atraumatic, moist mucous membranes, normal ENT inspection, TMs normal, pharynx normal - NECK Neck: non-tender, full range of motion, supple, normal inspection - RESPIRATORY Respiratory: chest non-tender, lungs clear, normal breath sounds - CARDIOVASCULAR Cardiovascular: normal peripheral pulses, no edema, tachycardia (121) - GASTROINTESTINAL (ABDOMEN) Abdominal Exam: normal bowel sounds, non tender, soft - LYMPHATIC Lymphatic: no adenopathy - MUSCULOSKELETAL Extremity: other (pt has diabetic ulcers on great toe, R foot.) - SKIN Integumentary: other (lower legs bilaterally are scaly and erythemic) - PSYCHIATRIC Psych/Mental Status: negative: oriented x 3 (pt is confused and is oriented to place but not day or time. Has a difficult time answering questions pertaining to his own health.) Progress - PLAN OF CARE/RESULTS Progress/Plan/Lab Results: Vital Signs - 8 hr 09/04/18 22:44 Temperature 99.9 F H Pulse Rate 121 H Respiratory Rate 22 Blood Pressure 117/73 O2 Sat by Pulse Oximetry 95 Orders Category Date Time Status Cardiac Monitoring DIRECTED Care 09/04/18 22:54 Ordered IV Insertion ORDERED Care 09/04/18 22:54 Ordered Notify MD of + Sepsis Screen NOW Care 09/04/18 22:54 Ordered Notify Physician As Ordered Care 09/04/18 22:54 Ordered CHEST-1 VIEW [RAD] Stat Exams 09/04/18 22:54 Ordered ABG [RESP] Stat Lab 09/04/18 22:54 Ordered BLOOD CULTURE [BLDCUL] Stat Lab 09/04/18 22:54 Uncollected CBC WITH DIFF [HEME] Stat Lab 09/04/18 22:54 Uncollected CK PROFILE [SP CHEM] Stat Lab 09/04/18 22:54 Uncollected COMPREHENSIVE METABOLIC PANEL [CHEM] Stat Lab 09/04/18 22:54 Uncollected LACTATE, PLASMA [CHEM] Q3H Lab 09/04/18 23:00 Uncollected LACTATE, PLASMA [CHEM] Q3H Lab 09/05/18 02:00 Uncollected LACTATE, PLASMA [CHEM] Q3H Lab 09/05/18 05:00 Uncollected MAGNESIUM [CHEM] Stat Lab 09/04/18 22:54 Uncollected PROTIME WITH INR [COAG] Stat Lab 09/04/18 22:54 Uncollected PTT [COAG] Stat Lab 09/04/18 22:54 Uncollected TROPONIN T Stat Lab 09/04/18 22:54 Uncollected URINALYSIS W/POSS RFLX CULT [URINALYSIS] Stat Lab 09/04/18 22:54 Uncollected Oxygen Device Stat Oth 09/04/18 22:54 Ordered Result Diagrams: 09/04/18 22:55 09/04/18 22:55 - EKG 1 Time of EKG reading by physician:: 22:45 EKG Read and Signed by:: Pardeep Ramirez EKG Interpretation (*Must complete 3 of following elements*): Abnormal (sinus tachycardia Nonspecific ST and T wave abnormality Abnormal ECG) Rate: 121 Rhythm: sinus tachycardia [place]: normal QRS: normal - CT/MRI 1 Impression: Normal (expected intracranial exam for age, wihout acute intracranial abnormality) 2 CT Study: Thorax Impression: Abnormal (Persistent pericardial effustion of moderate size but slightly improved compared to the previous exam. Bilateral pleural effusions and subsegmental atelectasis t the bases, interval progression Stable adrenal nodules) - CONSULTS/PCP/HOSPITALIST Notification #1 *Consult/PCP/Hospitalist*: alina Time Discussed: 02:02 Consult Disposition: Admit Procedures - LUMBAR PUNCTURE Procedure, Risk, Benefits and Alternatives discussed with:: Patient Consent Form Signed?: Yes Time-Out Verification Completed?: Yes Patient Position: Lying in position Insertion Site: L4-5 Site Prep: Kit Utilized, Betadine Anesthetic: 1% Volume of Anesthetic (ml's): 5 Procedure Successful?: Yes Departure - Departure Date of Disposition Decision: 09/05/18 Time of Disposition Decision: 02:01 DIAGNOSIS: Altered mental status Disposition: ADMITTED INPATIENT 09 Certified Medical Emergency: Emergent Condition: Stable Additional Freetext Instructions: We have examined and treated you today on an emergency basis only. This was not a substitute for, or an effort to provide, complete medical care. In most cases, you must let your doctor check you again. Tell your doctor about any new or lasting problems. We cannot recognize and treat all injuries or illnesses in one Emergency Department visit. If you had special tests, such as X-rays or CT scans, will be reviewed by radiologist and will call you if there are any new suggestions Follow up with primary care provider in 1 to 2 days if no improvement. If you do not have a primary care provider, you need to choose one as soon as possible. Take medicines as prescribed. Monitor for any side effects or adverse events from medications. If any side effect, adverse event or rash develops, or if you suspect any other adverse reaction to the medication, then discontinue the medication immediately and contact clinic /PCP or go to the nearest ER. Narcotic meds / sedative meds instruction - patent advised not to drive, operate any machinery or go into water after taking meds as it may impair mental ability to react to the situation in an appropriate manner. Continue other current medicines. Follow up with PCP within 24-48 hours, or sooner if symptoms worsen or fail to improve. Patient / guardian verbalizes understanding of treatment plan, medication, and side effects and agrees with treatment plan. Patient leaves ER in stable condition and ambulatory state. Return to ER as needed. Discharge instructions reviewed verbally and given to patient in written form. Follow up with primary care provider. Referrals and Follow-Ups: Jeremiah Moody MD [Primary Care Provider] - - Critical Care Note This patient required my direct & personal management of CC.: No Attestation - Physician/ POLLO Attestation Patient care was provided by Advanced Practice Provider:: No The physician spent face to face time with patient:: Yes Advanced Practice Provider documentation review:: Supervising physician onsite and consulted in the evaluation and care of this patient. The physician did have a face to face encounter with the patient. This chart was documented by the indicated scribe, (Mei Hurd Scribe) and accurately reflects the services I performed and decisions made by me, Pardeep Ramirez MD, as attested by the provider's signature.
[2018-09-05] MEDS ORDERED: XYLOCAINE 1% INJ ONE (02:04)
[2018-09-05 02:59] LABS: APPEARANCE CLEAR
[2018-09-05 03:07] LABS: GLUCOSE CSF 123 mg/dL (39-75); PROTEIN CSF 105.7 mg/dL (15-45)
[2018-09-05] MEDS ORDERED: ZOFRAN IV PRN (03:52)
[2018-09-05] MEDS ORDERED: TYLENOL PO PRN (03:52)
[2018-09-05] MEDS ORDERED: VANCOMYCIN IV PER PHARMACY MISC SCH (04:00)
[2018-09-05] MEDS ORDERED: VANCOMYCIN 1 GM/NS 1 GM/250 ML IVPB IV ONE (05:00)
[2018-09-05] MEDS: ZOSYN 3.375 GM in NS 50 ML IV SCH ×3 (06:34→13:55)
[2018-09-05] MEDS: HUMALOG SUBQ SCH ×4 (06:35→20:13)
[2018-09-05] MEDS: PRILOSEC PO SCH (06:35)
[2018-09-05 07:09] LABS: BASO# 0.02 X1000 (0.0-0.2); BASO% 0.1 % (0.0-0.8); HEMATOCRIT 37.7 % (42.0-52.0); HEMOGLOBIN 12.3 g/dL (14.0-18.0); IMM GRAN# 0.07 X1000 (0.0-0.04); IMM GRAN% 0.4 % (0.0-0.5); LYMPH# 1.07 X1000 (1.2-3.4); MCH 28.3 PG (27-31); MCHC 32.6 g/dL (33-37); MCV 86.7 FL (81-99); MONO# 1.67 X1000 (0.11-0.59); MONO% 9.3 % (1.7-9.3); MPV 10.1 FL (7.4-10.4); NEUT# 15.06 X1000 (1.4-6.5); NEUT% 84.2 % (42.2-75.2); PLT 245 X1000 (130-400); RBC 4.35 XMIL (4.7-6.1); RDW 14.9 % (11.5-14.5); WBC 17.89 X1000 (4.8-10.8)
--- NOTE | 2018-09-05 07:13 | HISTORY AND PHYSICAL ---
ADDENDUM He was brought in by family because of fever, weakness, some mild confusion. The patient was recently discharged from our facility just over a week ago, brought in by family because of progressive weakness and confusion. He was initially lethargic but since he got an IV fluid bolus, he has been a little more easy to arouse, and he is oriented x3. He has a white count of 22,000 and fever reported at home. He was admitted here last time for pericarditis, requiring a pericardial window, and he was sent home on tapering doses of steroids and colchicine. Dr. Brandin Gross was consulted on this case. His white count on discharge was 10,000, and now its 22,000. The patient denies any cardiorespiratory complaints and denies any head and neck symptoms or focal neurologic complaints. No GI or complaints. His sodium is 130, glucose 211, BUN 17, creatinine 0.6, H and H 13 and 40, platelets 280 with 85% neutrophils. His urine, chest films, CT scan of the chest were grossly unremarkable except for slightly decreased pericardial effusion noted on the CT scan. We were concerned that he may have [employer] infection. LP was done and was negative for acute bacterial meningitis, although his protein level was slightly elevated. His exam otherwise appears to be totally benign other than the chronic findings noted on prior exam. The only source now we can expect is probable from his pericardial effusions. For further evaluation, maybe an abdominal CAT scan may be beneficial in this patient, although he has no abdominal signs. The most logical course might be maybe getting pericardial fluid aspiration and fluid sent off to make sure he does not have any infection of the pericardial fluid. For now, I will defer to ID to see to the patient and just continue on broad spectrum antibiotics until then, i.e. vancomycin and Zosyn. Echocardiogram has also been ordered. cc: Quinn Reynoso MD
--- NOTE | 2018-09-05 07:17 | Diag Imaging Result Doc PS360 ---
EXAM: CHEST-1 VIEW 09/04/2018 HISTORY: ams TECHNIQUE: AP portable at 2324 COMMENT: There is opacity in the left lower lobe retrocardiac region. There is less blunting of the costophrenic angle on the left than on 08/28/2018. IMPRESSION: Improved left pleural effusion. Atelectasis versus pneumonia left lower lobe. Electronically signed by Yoni Marques 09/05/2018 7:15 AM
--- NOTE | 2018-09-05 07:21 | Diag Imaging Result Doc PS360 ---
EXAM: CT HEAD W/O CONTRAST INDICATION: ams TECHNIQUE: This exam was performed using automated exposure control, adjustment of mA or kV according to patient size, and/or use of iterative reconstruction technique. COMPARISON: None. FINDINGS: There is suggestion of mild periventricular white matter microangiopathy and mild diffuse brain atrophy. There is no definite acute infarct given the limited sensitivity of CT versus MRI. There is no discrete intracranial mass, mass effect, or intracranial hemorrhage. There is thickening at the lateral wall of the right maxillary sinus, which may be due to chronic sinus disease or perhaps fibrous dysplasia. Surrounding soft tissues and bony structures are essentially unremarkable, otherwise. IMPRESSION: Chronic appearing changes as described. No evidence of acute intracranial pathology. Electronically signed by Yordan Josue 09/05/2018 7:19 AM
--- NOTE | 2018-09-05 07:33 | Diag Imaging Result Doc PS360 ---
EXAM: CT THORAX W/O CONTRAST INDICATION: ams TECHNIQUE: This exam was performed using automated exposure control, adjustment of mA or kV according to patient size, and/or use of iterative reconstruction technique. COMPARISON: 08/22/2018 FINDINGS: There is a small right effusion and a small to moderate-sized left pleural effusion. There is bibasilar atelectasis. There is milder atelectasis in the inferior upper lobes bilaterally. No new consolidations are identified, otherwise. At least the left effusion has increased slightly in size during the interval. The pericardial effusion seen on the previous study is marginally smaller. The heart size is stable. Limited views of the upper abdomen reveals stable bilateral adrenal nodules. IMPRESSION: 1.Bilateral pleural effusions and bibasilar atelectasis with the left effusion being slightly larger than the previous study. 2.Slight decrease in pericardial effusion during the interval. Electronically signed by Yordan Josue 09/05/2018 7:30 AM
[2018-09-05 07:39] LABS: AGAP 16; BUN 16 mg/dL (8-22); CALCIUM 7.9 mg/dL (8.8-10.2); CHLORIDE 99 mmol/L (98-107); CK PROFILE 73 U/L (24-204); COSMO 279; CREATININE 0.6 mg/dL (0.7-1.2); ESTIMATED GFR > 60; GLUCOSE 246 mg/dL (70-104); POTASSIUM 4.2 mmol/L (3.5-5.1); SODIUM 135 mmol/L (136-145); TCO2 20 mmol/L (25-35)
[2018-09-05] MEDS ORDERED: CARDIZEM IV ONE (07:55)
[2018-09-05] MEDS ORDERED: NS 1,000 ML IV SCH (08:00)
[2018-09-05] MEDS ORDERED: CARDIZEM 100 MG/NS 100 MG/100 ML IVPB IV SCH ×2 (08:00→11:30)
--- NOTE | 2018-09-05 08:12 | EKG Report ---
Test Performed on : 09/05/2018 08:05:18 AM Test Reason : REPEAT. CONFIRM RHYTHM Blood Pressure : / mmHG Vent. Rate : 130 BPM Atrial Rate : 130 BPM P-R Int : 168 ms QRS Dur : 078 ms QT Int : 312 ms P-R-T Axes : 039 -02 079 degrees QTc Int : 459 ms Sinus tachycardia. Nonspecific T wave abnormality Abnormal ECG When compared with ECG of 05-SEP-2018 08:04, (Unconfirmed) premature supraventricular complexes. are no longer present Confirmed by Danny BLUNT, Raul Elizabeth ([id number]) on 09/05/2018 9:16:23 PM
--- NOTE | 2018-09-05 08:12 | EKG Report ---
Test Performed on : 09/05/2018 08:04:38 AM Test Reason : Pericardial Effusioin, Weakness Blood Pressure : / mmHG Vent. Rate : 137 BPM Atrial Rate : 137 BPM P-R Int : 138 ms QRS Dur : 082 ms QT Int : 324 ms P-R-T Axes : 035 -02 058 degrees QTc Int : 489 ms Sinus tachycardia. with premature supraventricular complexes. Nonspecific ST and T wave abnormality Abnormal ECG When compared with ECG of 04-SEP-2018 22:40, (Unconfirmed) premature supraventricular complexes. are now present Confirmed by Raul Delgado MD ([id number]) on 09/05/2018 9:16:21 PM
[2018-09-05] MEDS: LOPRESSOR PO SCH ×3 (08:51→20:12)
[2018-09-05] MEDS ORDERED: LOPRESSOR PO SCH (09:00)
[2018-09-05] MEDS ORDERED: COLCRYS PO SCH (09:00)
[2018-09-05] MEDS: MAGNESIUM SULFATE 2 GM/S.W.I. 2 GM/50 ML IVPB IV SCH ×4 (09:42→15:57)
[2018-09-05] MEDS: VITAMIN D PO SCH (09:50)
[2018-09-05] MEDS ORDERED: SOLU-MEDROL IV ONE (10:11)
--- NOTE | 2018-09-05 11:29 | EKG Report ---
Test Performed on : 09/04/2018 10:40:27 PM Test Reason : ED. No order in [place] Blood Pressure : / mmHG Vent. Rate : 121 BPM Atrial Rate : 121 BPM P-R Int : 138 ms QRS Dur : 080 ms QT Int : 314 ms P-R-T Axes : 039 018 078 degrees QTc Int : 445 ms Sinus tachycardia. Nonspecific ST and T wave abnormality Abnormal ECG When compared with ECG of 25-AUG-2018 20:37, ST elevation now present in Anterior leads Nonspecific T wave abnormality, worse in Lateral leads Unconfirmed Result
--- NOTE | 2018-09-05 12:37 | PROGRESS NOTE ---
DATE: 09/05/2018 INTERVAL HISTORY: Mr. Cifuentes was admitted overnight with chief complaints of generalized weakness and fever with confusion of about 7 days duration, which has started getting worse in the last 1 day or so. He was found to have bilateral pleural effusion and pericardial effusion with leukocytosis with 0% eosinophils. He was admitted to ICU as he developed atrial fibrillation with rapid ventricular rate with heart rate in 140s and the fact that there was no CIC bed available. SUBJECTIVE: The patient states he is feeling a little better than he was yesterday. He is still feeling very weak and sleepy. Denies chest pain, shortness of breath, nausea, vomiting, abdominal pain. He denies taking any other medicines than what was prescribed to him currently. OBJECTIVE: Vitals: Suggest temperature of 98.9, pulse of 112 per minute, respiratory rate of 35 per minute, blood pressure of 139/71, saturating 100% on 4 L nasal cannula. General: He appears drowsy, but arousable. He also appears a little tired. Oral cavity: Is moist. No pharyngeal or tonsillar exudate. Neck: No cervical lymphadenopathy. Lungs: Air entry bilaterally decreased in inframammary region. No crackles. No wheeze. Cardiovascular: S1 , S2 distant appearing. No obvious murmur, rub, or gallop. He does have jugular venous distention and slightly positive hepatojugular reflex. Abdomen: Soft, nontender. Extremities: He does not have any lower extremity edema. LABORATORIES: Suggestive of leukocytosis, normocytic anemia, neutropenia with lymphopenia and eosinophilia. He on admission had hyponatremia, hypochloremia, normal kidney function, hypomagnesemia. His C-reactive protein was elevated. His proBNP was also elevated. 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 His CSF was significant for elevated total protein. His rheumatoid factor was also slightly elevated. ASSESSMENT AND PLAN: 1. Tachycardia. Reviewing EKG, it looks like the episodes he had were likely sinus tachycardia with frequent premature atrial contraction interspersed with a few beats of AFib. He is status post 10 mg of intravenous diltiazem. I will restart his home metoprolol at higher dose. I am holding on giving any anticoagulation at the moment. 2. Recurrent pleural effusion and recurrent pericardial effusion. EKG does not suggest any signs of pericarditis at the moment. I will send workup of recurrent effusion, including antinuclear antibody, hepatitis B, HIV and hepatitis C with antinuclear antibody, cyclic citrullinated peptide, peripheral blood smear. I would also await echocardiogram report since he does have jugular venous distention and on my review of CT, he had about 1.4 cm pericardial effusion. I will await echocardiogram to see whether he has tamponade physiology. 3. Suspected sepsis with tachycardia and leukocytosis. I will keep the patient is on intravenous vancomycin and Zosyn until final blood culture results come back. 4. Generalized weakness and acute encephalopathy. Unclear etiology. He has improved a little bit. Lumbar puncture performed had no WBCs, except high protein. This could be in the setting of pericardial tamponade versus autoimmune disease versus an infectious etiology. Awaiting further lab data. 5. Others, continue home aspirin, vitamin D, docusate to avoid constipation, continue sliding scale insulin for history of insulin-dependent diabetes mellitus and omeprazole for chronic GERD. 6. Disposition. The patient remains inside the ICU for close monitoring of his respiratory status as well as heart rate. Plan of care was discussed with him and I had answered all of his questions. TIME SPENT: More than 30 minutes of critical care time was spent in taking care of this patient. cc: Ronald Reyna MD MTDD
[2018-09-05] MEDS ORDERED: NS 250 ML ONE (14:36)
[2018-09-05] MEDS: MAXIPIME 2 GM in NS 100 ML IV SCH (15:01)
--- NOTE | 2018-09-05 16:46 | CARDIOLOGY CONSULTATION ---
DATE: 09/05/2018 CONSULTATION REQUESTED BY: Hospitalist Service. REASON FOR CONSULTATION: Possible recurrent pericarditis. HISTORY: Mr. Cifuentes is a 63-year-old male, who presented to the hospital for admission on August 22. At that time, he was found to have acute pericarditis with tamponade. He received a pericardial window with pericardial biopsy on August 24. Since then, the patient has been treated with colchicine, and eventually he was discharged home on August 29. The patient presented back to the emergency room on September 04 at about 10: 30 p.m. with complaints of feeling generally weak, somewhat confused. At that time, they did a chest x-ray that shows improved left pleural effusion, atelectasis versus pneumonia, left lower lobe. Head CT shows chronic-appearing changes, no evidence of acute pathology. A chest CT has been done and shows bilateral pleural effusions, bibasilar atelectasis, left effusion being larger than previous study, and a slight decrease in pericardial effusion during the interval. They have checked a C-reactive protein that is markedly elevated at 254 mg/L. This is much greater than on prior admission. ProBNP level is 2007 pg/ml. Sedimentation rate is 68 mm/hour. The patient answers somewhat sluggishly. He seems to be somewhat toxic. Denies having any pain. His initial white count upon presentation was 22,000 and subsequent white count 17,890. His magnesium level was low, and Dr. Reyna has already replaced it. He does not have any discomfort in the limbs or in the abdomen. He follows simple commands; however, it requires some effort to make him pay attention. He is aware that he is at [facility] and his son is the one who brought him to the hospital. PAST HISTORY: He is positive for coronary heart disease. He has had a moderate degree of coronary artery disease. He does have history of diabetes mellitus, type 2. PAST SURGICAL HISTORY: He had a recent hip fracture. SOCIAL HISTORY: He lives with his son. He is smoking 2 packs a day. FAMILY HISTORY: Positive for diabetes. ADDITIONAL HISTORY: He has had herniated disks. He has had dyslipidemia. He has had peripheral neuropathy. In the past, he has required low back diskectomy, right shoulder arthroscopy, and left knee surgery. He has also had right knee arthroscopy. HOME MEDICATIONS: At the time of this admission included: Aspirin 81 daily. Vitamin D3. Colchicine 0.6 twice a day. Gabapentin 400 mg 3 times a day. Insulin lispro 4 times a day. Tradjenta 5 mg daily. Methocarbamol 500 mg daily. Metoprolol 50 twice a day. Omeprazole 40 mg daily. ALLERGIC: Statins. REVIEW OF SYSTEMS: The review of systems is noncontributory beyond what I have already said. Multiple systems were briefly interrogated. Patient is very lethargic and really does not help much to figure out if there is any other system involved. PHYSICAL EXAMINATION: Vital signs: Pulse 112, temperature 98.9 degrees, respirations 28, blood pressure 139/71. General: He is somewhat pale. Appears to be somewhat toxic and chronically ill. HEENT: Jugular veins slightly prominent. Chest: Diminished breath sounds at the bases, especially the left with dullness to percussion. Heart: Heart sounds regular and rhythmic. Question of a rub. No definite gallop noted. Abdomen: Nontender, soft. No masses. No hepatomegaly. Extremities: Showed good popliteal pulses, markedly diminished pulses below the knee. Neurological: Follows commands and moves 4 extremities. LABORATORY DATA: His sodium 135, potassium 4.2, BUN 16, creatinine 0.6, albumin is 3.1. IMPRESSION: 1. Patient who presents to the hospital with some sort of a toxic state with evidence of abnormal chest x-ray, inflammatory process going on, recent diagnosis of pericarditis. CT scan of chest shows moderate effusion (residual). Echo done this AM shows no evidence of tamponade. Pericarditis is probably going into a subacute phase. (organizing?) 2. History of diabetes. 3. Tobacco user. 4. History of coronary heart disease. RECOMMENDATIONS: At the time of this dictation, I have reviewed the echocardiogram that was done this morning. There is a definite pericardial effusion; however, it is not causing a tamponade. There is thickening of the epicardium as in subacute pericarditis. I suspect the patient may be in need of a strong anti-inflammatory regimen. I doubt that we are dealing with an infectious process. They have done a spinal tap that shows no evidence of bacteria on the Gram stain. Influenza screen has been negative. Blood cultures are pending. At this point in time, I would suggest to go ahead and give him a high dose of steroids to control the inflammatory process that probably involves the entire pericardium and probably part of the pleura. This is not probably not infectious. The patient at this time is being covered with broad-spectrum antibiotics. We will see what happens over the course of the next 48 hours with this regimen. We will follow him. cc: Issa Baldwin MD MTDD
[2018-09-05] MEDS: VANCOMYCIN 2,000 MG in NS 500 ML IV SCH (17:11)
[2018-09-05] MEDS: SOLU-MEDROL IV SCH ×2 (17:12→23:39)
--- NOTE | 2018-09-05 17:28 | ECHO REPORT ---
ORDER DATE: 09/05/2018 INTERPRETING PHYSICIAN: Maxime Gonzalez MD ECHOCARDIOGRAPHIC MEASUREMENTS: Interventricular septum 1.5 cm. Left ventricular posterior wall 1.6 cm. Diastolic diameter 4.7 cm. Left atrium 4.1 cm. Aorta 3.6 cm. SUMMARY OF THE 2-DIMENSIONAL IMAGING: Aortic valve leaflets were sclerosed, trileaflet. Pulmonic valve was normal. There is trace pulmonary regurgitation. Mitral valve was normal. Tricuspid valve was normal. There is trace mitral regurgitation. Peak velocity across the aortic valve less than 2 m/sec. There is no aortic stenosis or regurgitation. There is trace tricuspid regurgitation. Peak velocity across the tricuspid valve was 2.4 m/sec. There was trace anterior and posterior pericardial effusion. No evidence of tamponade. cc: Maxime Gonzalez MD
[2018-09-05 18:02] LABS: BASO# 0.01 X1000 (0.0-0.2); BASO% 0.1 % (0.0-0.8); HEMATOCRIT 38.5 % (42.0-52.0); HEMOGLOBIN 12.9 g/dL (14.0-18.0); IMM GRAN# 0.05 X1000 (0.0-0.04); IMM GRAN% 0.3 % (0.0-0.5); LYMPH# 0.59 X1000 (1.2-3.4); LYMPH% 3.2 % (20.5-51.1); MCH 28.7 PG (27-31); MCHC 33.5 g/dL (33-37); MCV 85.6 FL (81-99); MONO# 0.62 X1000 (0.11-0.59); MONO% 3.4 % (1.7-9.3); MPV 10.1 FL (7.4-10.4); NEUT# 17.11 X1000 (1.4-6.5); PLT 248 X1000 (130-400); RDW 14.9 % (11.5-14.5); WBC 18.38 X1000 (4.8-10.8)
[2018-09-05 18:46] LABS: HIV ANTIBODY SCREEN SEE COMMENTS
[2018-09-05 18:55] LABS: BANDS 1 % (0-1); SEGS 99 % (42-75)
--- NOTE | 2018-09-05 19:41 | INFECTIOUS DISEASE CONSULT REP ---
DATE: 09/05/2018 CONCLUSION: The patient was admitted to the hospital this time with fever, weakness and confusion. He had been in the hospital a week earlier and was found to have pericarditis with tamponade and underwent surgery for a pericardial window. The pathology of the window shows chronic inflammation. Exactly what is causing the patient's problem now is uncertain to me. RECOMMENDATIONS: The patient was put on vancomycin and Zosyn. I have discontinued the Zosyn and instead put the patient on cefepime, along with vancomycin. The patient was unable to provide a history for me and no family member was present. According to the last time, the patient was in he has hypertension, transaminitis, acute kidney injury and chronic obstructive pulmonary disease. He also had pericarditis and, as mentioned above, he had a pericardial window performed. At discharge, the patient's diagnosis was acute hypoxemic respiratory failure, which was improved, pericarditis with tamponade and the patient is status post pericardial window, diastolic heart failure secondary to tamponade, diabetes mellitus and paroxysmal atrial fibrillation. The patient was sent home on omeprazole, gabapentin, iron, linagliptin, insulin, aspirin, Robaxin, Eliquis, colchicine, metoprolol and prednisone. Patient's current studies show a CBC with a white count of 17,890, hemoglobin is 12.3 and platelet count is 245,000. Blood gases show a pH of 7.52, a pO2 of 66 and a pCO2 of 31. Creatinine is 0.6. GFR is greater than 60. Liver function studies are normal. CK is 69. Urinalysis did not show any white cells or bacteria. A spinal tap was done. It showed 1 white cell, a glucose of 123 and a protein of 123. The patient's pericardial biopsy had a pathology report which showed chronic inflammation. CT scan of the chest shows bilateral pleural effusions and a decrease in the pericardial fluid. Blood and spinal fluids are pending. CT scan of the head shows diffuse atrophy and some maxillary wall thickening, which could be due to sinusitis. PHYSICAL EXAMINATION: Vital Signs: Temperature is 98.9, pulse 112, respirations 40, blood pressure 139/71. The patient is 213 pounds. General: This is an ill-appearing, elderly male. He is very lethargic. Head, Eyes, Ears, Nose and Throat: No drainage noted from the nose or ears. I was unable to see into the patient's mouth. Neck: No stiffness. Lungs: Clear to auscultation. Thorax: Pericardial incision is intact. Cardiovascular: Heart rate is regular. Lungs are clear to auscultation. Abdomen: Soft and apparently not tender. Neurologic: Patient is very lethargic. He occasionally opened his eyes and then he dozed right off. I was unable to get a history from him. The patient did not have any tremor. Extremities: The patient's feet were cold and I did not feel peripheral pulses. Integument: No rash noted. Thank you for the consult. cc: Sundeep Hinds MD
[2018-09-05] MEDS: COLACE PO SCH (20:12)
[2018-09-05] MEDS: CARDIZEM 125 MG in NS 100 ML IV SCH (23:46)
[2018-09-06] MEDS: MAXIPIME 2 GM in NS 100 ML IV SCH ×2 (02:27→13:22)
[2018-09-06] MEDS: VANCOMYCIN 2,000 MG in NS 500 ML IV SCH ×2 (04:37→17:55)
[2018-09-06] MEDS: SOLU-MEDROL IV SCH ×4 (05:53→23:47)
[2018-09-06] MEDS: PRILOSEC PO SCH (05:59)
--- NOTE | 2018-09-06 06:32 | HISTORY AND PHYSICAL ---
PRIMARY CARE PROVIDER: Jeremiah Moody MD CHIEF COMPLAINT: Weakness. HISTORY OF PRESENT ILLNESS: Mr. Cifuentes is a 63-year-old male who was just recently admitted to our facility and was discharged on 08/29/2018. During his admission he was found to have a pericardial effusion, pericarditis, and cardiac tamponade. He is also status post pericardial window. He did have some diastolic heart failure secondary to his tamponade. He also during this admission was noted to have paroxysmal atrial fibrillation and was discharged with metoprolol and Eliquis for stroke prophylaxis. The patient was discharged to rehab and had been home for a very short amount of time though was having increasing weakness. He was also reported to have some mild confusion and fever. He was discharged also with tapering doses of steroids, which he has finished, though he is still taking Colcrys at this time. He denies any headache, dizziness, neck pain or nuchal rigidity. He denies any chest pain, shortness of breath or cough. He denies any abdominal pain, nausea, vomiting or diarrhea. The patient has reported that he has not had a bowel movement for approximately two weeks. He does have a diabetic ulcer of his right great toe that was present during his last admission though he reports this has not worsened. He has generalized weakness as previously mentioned, though he has no pain, numbness, tingling, or swelling in the extremities at this time. Upon initial evaluation in the ER the patient's temperature was 99.9, heart rate was 121, respirations 22, blood pressure was 117/73, and oxygen saturation was 95% on nasal cannula at 2 L. He was in sinus tachycardia on his EKG as well as bedside monitor. It was noted by the emergency room staff that the patient upon initial arrival was having some confusion. He was found to have leukocytosis with a white blood cell count of 22,000. Chest x-ray performed in the ER showed improved left pleural effusion, atelectasis versus pneumonia in the left lower lobe. We did perform a CT chest without contrast, given the patient's recent history of pericardial effusion and tamponade, which showed bilateral pleural effusions and bibasilar atelectasis with the left effusion being slightly larger than previous study. There was a slight decrease in the pericardial effusion during the interval, though there were no new consolidations identified otherwise. We also did perform a head CT which showed no acute intracranial pathology, though given the patient's weakness and confusion, fever and leukocyte esterase, we did also perform a lumbar puncture. It showed that his fluid appearance was clear. He had 1 wbc, 1 rbc, glucose of 123 and total protein was 105.7. At this time we did suspect the patient may have fever in a patient of unknown origin, though we will continue to investigate his etiology. At this time we have continued the patient with broad-spectrum antibiotics of Zosyn and vancomycin. Blood cultures as well as culture and Gram stain of his cerebrospinal fluid are pending. We also performed a flu that was negative. He did report that his son recently had the flu over the past week or two and he does live with him. He will be admitted for further treatment and evaluation. REVIEW OF SYSTEMS: A 14-point review of systems was conducted with the patient and all were negative except for pertinent positives mentioned in the above HPI. PAST MEDICAL HISTORY: 1. Type 2 diabetes mellitus. 2. Peripheral artery disease. 3. Hypertension. 4. Nicotine dependence. 5. COPD. 6. Recent diagnosis of paroxysmal atrial fibrillation during his previous admission, currently on metoprolol and Eliquis for stroke prophylaxis. 7. Recent diagnosis of pericardial effusion, pericarditis and tamponade, status post pericardial window. 8. Recent diagnosis of diastolic heart failure secondary to tamponade. PAST SURGICAL HISTORY: 1. Status post pericardial window. 2. Status post bilateral hip surgery with his most recent one being approximately a [id number] half ago. 3. Back surgery. 4. Carpal tunnel surgery. 5. Hand surgery. 6. Tonsillectomy. 7. Reported throat surgery for sleep apnea. 8. Sinus surgery. 9. Right shoulder surgery. SOCIAL HISTORY: The patient currently does live with his son at this time. The patient states that since being discharged from rehab, due to his weakness, he is really not ambulatory at this time. The patient is requiring maximum assistance just to even sit up in the bed at this time. The patient does smoke approximately 1-1/2 to 2 packs of cigarettes per day. There is no known alcohol or illicit drug use noted. FAMILY HISTORY: Notable for diabetes and hypertension. ALLERGIES: The patient has allergies to statins. HOME MEDICATIONS: 1. Aspirin 81 mg p.o. daily. 2. Vitamin D3 5000 units p.o. daily. 3. Colcrys 0.6 mg p.o. b.i.d. 4. Colace 200 mg p.o. at bedtime. 5. Gabapentin 400 mg p.o. t.i.d. 6. Humalog per sliding scale protocol four times a day as needed. 7. Tradjenta 5 mg p.o. daily. 8. Robaxin 500 mg p.o. daily p.r.n. 9. Metoprolol 50 mg p.o. b.i.d. 10.Omeprazole 40 mg p.o. daily. 11.Eliquis 5 mg b.i.d. DIAGNOSTIC DATA/ LABORATORY RESULTS: White blood cell count was 22,000. Hemoglobin 13.6. Hematocrit 40.1. Platelet count is 280,000. PT 16.5. INR 1.23. PTT is 35.8. Sodium 130. Potassium 4.1. Chloride 92. Serum bicarb is 24. BUN 17. Creatinine 0.6 with a glucose of 211. Calcium 8.8. Magnesium 1.3. Liver function tests are within normal limits. CK 85. Troponin is 0.037. C-reactive protein was 254.99. Plasma lactate was 1.1. Urinalysis showed positive for protein, glucose, ketones, blood and was negative for nitrites, leukocytes, white blood cells or bacteria. Cerebrospinal fluid did show that it was clear in appearance. There was 1 rbc, 1 wbc noted. CSF glucose was 123 and CSF total protein was 105.7. Arterial blood gases were obtained on nasal cannula with FIO2 of 30%, pH 7.52, pCO2 31, pO2 66, HCO3 27.1 with a base excess of 3 and O2 saturation of 95.8. EKG showed sinus tachycardia at a rate of 121 with a QTc of 445. Chest x-ray showed improved left pleural effusion, atelectasis versus pneumonia in the left lower lobe. CT of the chest showed bilateral pleural effusions and bibasilar atelectasis with the left effusion being slightly larger than the previous study. There was a slight decrease in the pericardial effusion during the interval, though there were no new consolidations identified. CT of the head noncontrast showed chronic-appearing changes, though no evidence of acute intracranial pathology. Please see the report for full findings. PHYSICAL EXAMINATION: VITAL SIGNS: Heart rate 114, respiratory rate is 22, and blood pressure is 121/85. The oxygen saturation is 96% nasal cannula at 2 L. GENERAL: Mr. Cifuentes is a pleasant 63-year-old male. He was resting in the ER stretcher. He was in no acute distress. The patient did seem slightly drowsy upon our examination though was easily arousable to verbal stimulation. He is alert and oriented x4. He did answer questions appropriately. The patient did follow commands appropriately as well though does have generalized weakness noted. HEENT: The head is normocephalic and atraumatic. The pupils are equal, round, and reactive to light, were 3 mm bilaterally and brisk. The oral mucosa is moist. The oropharynx is clear. NECK: Supple. Trachea midline. No nuchal rigidity noted. There is not any overt JVD noted at the time of my initial examination. CARDIOVASCULAR: The patient does have an S1 and S2 present, though heart sounds were difficult to auscultate. This may likely be secondary to the patient's pericardial effusion. PULMONARY: The patient has symmetrical chest expansion bilaterally. The lung sounds are clear to auscultation in bilateral full zamora. ABDOMEN: Soft, nontender, and nondistended. Bowel sounds are present in all four quadrants. EXTREMITIES: No new cyanosis or edema noted though the patient does have some discoloration noted to his bilateral lower extremities, likely related to his peripheral vascular disease. He is able to move all extremities. Pulses, motor, and sensory is intact in all extremities. Radial pulses and pedal pulses are 2+ bilaterally. INTEGUMENTARY: The patient's skin is pink, warm, and dry, though he does have an approximately nickel-sized diabetic foot ulcer noted to his right great toe. There is no drainage, warmth or erythema noted at this time. NEUROLOGICAL: The patient does seem slightly drowsy and slow to respond to questions at times, though he is easily arousable to verbal stimulation. At the time of my examination the patient was alert and oriented to person, place, time and situation. He was able to answer questions related to HPI, past medical history, and was able to follow commands. He does have quite a bit of generalized weakness noted and did require maximum assistance, even just sitting him up in the bed to listen to lung sounds, though motor and sensory is intact in all extremities. There is no facial droop noted. He does have hand grasps that were equally bilaterally. There was no arm drift present. The patient is denying any numbness or tingling in the extremities. ASSESSMENT AND PLAN: 1. Weakness. This is of uncertain etiology at this time. The patient reports that he had been weak since being discharged from the hospital but this did progressively get worse. He does have fever and leukocytosis. We are ruling out a possible infection. At this time there is not a clear source. He also does still have a pericardial effusion as well. We will continue to follow. We have placed frequent neuro checks as well. Other than his weakness and some confusion upon arrival, which seems to have resolved, there are not any other acute neurologic deficits. 2. Pericardial effusions. The patient's computed tomography (CT) did note that there was slight improvement in this compared to previous study. Given the patient's symptoms and recent history of pericarditis, status post tamponade with a pericardial window being performed, we will go ahead and repeat an echocardiogram. I will do a series of cardiac enzymes. We have placed a consult with Cardiology and we will await their evaluation and further recommendations for management. 3. Fever of unknown origin. As previously mentioned in the above history of present illness, the patient at this time does not have a clear source of infection though he does have leukocytosis and fever. Computed tomography of the chest was negative for any infectious process, as well as a computed tomography of the head and lumbar puncture. We have obtained blood cultures and Gram stain and culture of cerebrospinal fluid. We have placed him with antibiotic coverage of vancomycin and Zosyn. We will await culture results. We did place a consult with Dr. Hinds with Infectious Disease and will await his evaluation and recommendations as well. 4. Leukocytosis. We will continue with treatment as mentioned above for #3. 5. History of atrial fibrillation. On metoprolol and Eliquis. Upon initial arrival and my assessment the patient was in sinus tachycardia in the 110s to low 120s. He was not symptomatic with this, though after arriving to the inpatient bed he did begin to have some tachycardic with an increased rate into the 140s and 150s at times which looked as though he was having occasional small episodes of atrial fibrillation. Given this he was moved to the intensive care unit. He has been continued on his metoprolol though we have increased the dose. We will hold his Eliquis at this time until he is evaluated by Cardiology in case he requires any acute procedures. 6. Diabetes mellitus type 2. We will continue him on sliding scale lispro insulin. 7. Nicotine dependence. We have discussed with the patient for several minutes the importance of smoking cessation. He did state verbal understanding. The patient has been placed in the ICU for close monitoring. We will do pattern fingerstick blood sugars, neuro checks q.4 h., strict intake and output, as well as incentive spirometry. He will be on vital signs per ICU protocol. We have implemented a diabetic and heart healthy diet. We will continue his Colace though he may need additional bowel regimen given that he has not had a bowel movement in a reported two weeks. Further orders and recommendations pending hospital course, diagnostic studies, and physician evaluation. Dictated by SANYA Gomez for Quinn Reynoso MD cc: Quinn Reynoso MD
[2018-09-06] MEDS: HUMALOG SUBQ SCH ×5 (06:51→20:27)
[2018-09-06] MEDS: LOPRESSOR PO SCH ×2 (08:04→20:27)
[2018-09-06] MEDS: VITAMIN D PO SCH (08:04)
[2018-09-06] MEDS: ASPIRIN PO SCH (08:04)
[2018-09-06 08:25] LABS: AGAP 13; ALB/GLOB RATIO 0.6; ALBUMIN 2.4 g/dL (3.5-5.0); ALKALINE PHOSPHATASE 113 U/L (32-122); BUN 24 mg/dL (8-22); CALCIUM 8.7 mg/dL (8.8-10.2); CHLORIDE 102 mmol/L (98-107); COSMO 284; CREATININE 0.5 mg/dL (0.7-1.2); ESTIMATED GFR > 60; GLUCOSE 270 mg/dL (70-104); GOT 10 U/L (10-34); GPT 25 U/L (10-44); SODIUM 135 mmol/L (136-145); TCO2 20 mmol/L (25-35); TOTAL BILIRUBIN 0.45 mg/dL (0.20-1.00); TOTAL PROTEIN 6.3 g/dL (6.3-8.3)
[2018-09-06 08:38] LABS: HEMATOCRIT 37.7 % (42.0-52.0); HEMOGLOBIN 12.5 g/dL (14.0-18.0); IMM GRAN# 0.04 X1000 (0.0-0.04); IMM GRAN% 0.3 % (0.0-0.5); LYMPH# 0.55 X1000 (1.2-3.4); LYMPH% 4.2 % (20.5-51.1); MCH 28.3 PG (27-31); MCHC 33.2 g/dL (33-37); MCV 85.5 FL (81-99); MONO# 0.43 X1000 (0.11-0.59); MONO% 3.3 % (1.7-9.3); MPV 10.5 FL (7.4-10.4); NEUT# 12.16 X1000 (1.4-6.5); NEUT% 92.2 % (42.2-75.2); PLT 240 X1000 (130-400); RBC 4.41 XMIL (4.7-6.1); RDW 14.6 % (11.5-14.5); WBC 13.18 X1000 (4.8-10.8)
[2018-09-06] MEDS: COLCRYS PO SCH ×2 (08:44→20:27)
[2018-09-06 08:45] LABS: HEPATITIS B SURFACE ANTIGEN SEE COMMENTS; HEPATITIS C ANTIBODY SEE COMMENTS
[2018-09-06 08:52] LABS: BANDS 2 % (0-1); LYMPHS 6 % (21-51); MONO 4 % (1-9); SEGS 88 % (42-75)
--- NOTE | 2018-09-06 09:14 | CARDIOLOGY PROGRESS NOTE ---
DATE: 09/06/2018 CHIEF COMPLAINT: Confusion, dyspnea, tachycardia. SUBJECTIVE: Mr. Cifuentes is doing significantly better this morning. He is sitting upright eating his breakfast. He is fully alert, oriented x3. His heart rate has decreased. He is not looking toxic any more. OBJECTIVE: VITAL SIGNS: Blood pressure 126/70, temperature is 97.8 degrees, pulse 73, respirations 20. GENERAL: He is awake, alert, in no distress. HEENT: Unremarkable. CHEST: Diminished breath sounds, especially in the left lung. HEART: Sounds are not tachycardic, regular. No rub is noted. ABDOMEN: Nontender. EXTREMITIES: Showed no significant edema. NEUROLOGICAL: Follows commands. Moves 4 extremities. He is completely awake. BLOOD WORK: Today, sodium 135, potassium 4.0, BUN 24, creatinine 0.5. IMPRESSION: 1. Patient who probably has subacute pericarditis. I believe he had intense inflammatory process going on and he may have been toxic from it. He appears to have responded dramatically to steroids. 2. History of coronary disease, mild. 3. Tobacco use. 4. History of diabetes mellitus type 2. RECOMMENDATIONS: At this time, we will continue steroids as recommended. He also needs to stay on Colchicine 0.6 mg twice a day. We will continue all other interventions and we will how things go. Thank you for the opportunity to participate in his evaluation. cc: Issa Baldwin MD
--- NOTE | 2018-09-06 12:55 | PROGRESS NOTE ---
DATE: 09/06/2018 INTERVAL HISTORY: The patient's heart rate had become under control after diltiazem drip which was recommended by Cardiology. Patient kept on receiving intravenous steroids. SUBJECTIVE: Patient denies chest pain, shortness of breath, nausea, vomiting, abdominal pain. The patient states that his father was diagnosed with lupus when he was probably in his 60s, but he denies any other known personal history of autoimmune disease including lupus , rheumatoid arthritis, lymphoma or Sjogren's disease. We discussed about his physical exam findings and the fact that the episodes of bilateral effusions with pericardial effusions and pleural effusions could be related to malignancy, a viral infection or autoimmune disease. VITAL SIGNS: Temperature of 97.2, pulse 75 per minute, respiratory 24, blood pressure 117/62. He was saturating 90 to 94 percent on 4 L nasal cannula. PHYSICAL EXAMINATION: General: Does not appear in any acute distress. He is alert and engages in meaningful conversation. HEENT: Oral cavity is moist. No tonsillar exudate. Neck: No cervical lymphadenopathy. Lungs: Air entry bilaterally decreased in infrascapular region. No wheeze, rhonchi, or crackles. Cardiovascular: S1, S2 normal. No murmur, rub, or gallop. No tachycardia. Normal sinus rhythm on monitor. He has mild jugular venous distention with about 8 cm on hepatojugular reflex. Abdomen: Soft, nontender otherwise. Extremities: No lower extremity edema. LABORATORY DATA: Suggestive of improving leukocytosis. Stable hemoglobin and hematocrit, and platelet count. BMP suggestive of hyponatremia, low bicarbonate, elevated BUN likely because of steroids. Normal kidney function. Otherwise, hyperglycemia. His lactate has normalized in been normal. His hepatitis B surface antigen, hepatitis C antibody, and HIV antibody has been negative. ASSESSMENT AND PLAN: 1. Tachycardia on presentation, a combination of sinus tachycardia, premature atrial contraction with intermittent atrial fibrillation, now resolved. Could be in the setting of sepsis. Continue higher than his home dose of metoprolol and change intravenous diltiazem to p.o. diltiazem. I will appreciate Cardiology recommendation if he needs to be still on intravenous diltiazem. For now, I have started him on p.o. diltiazem. 2. Recurrent bilateral pleural effusion and persistent mild pericardial effusion. Echo suggested no signs of pericardial tamponade. Possible etiologies include autoimmune disease considering his father had history of lupus in his old age, hematological or a solid malignancy, a viral infection. I will follow up with antinuclear antibody, anticyclic citrated peptide peripheral blood smear. Continue intravenous steroids as per Cardiology recommendation and I would taper it down at the time of discharge to p.o. steroid. 3. Suspected sepsis with tachycardia and leukocytosis. Continue intravenous vancomycin and Zosyn until final blood cultures become available. Likelihood of infection is less at the moment. His lumbar puncture was unremarkable. 4. Generalized weakness and acute encephalopathy. Unclear etiology, improved after intravenous antibiotics and intravenous steroids. Pending further workup of autoimmune etiology. 5. Others. Continue home aspirin, vitamin D, docusate to avoid constipation. Continue sliding scale insulin and add glargine for steroid-induced hyperglycemia, continue omeprazole for chronic GERD. 6. Disposition. The patient appears to be hemodynamically stable. I will monitor him inside the ICU for a few hours and would consider sending him to step-down unit CIC later today or tomorrow. Plan of care was discussed with him. All of his questions have been answered. cc: Ronald Reyna MD MTDD
[2018-09-06] MEDS ORDERED: INSULIN PEN NEEDLES ONE (13:19)
[2018-09-06] MEDS: BASAGLAR SUBQ SCH (13:21)
[2018-09-06] MEDS: NEURONTIN PO SCH ×2 (13:22→18:03)
[2018-09-06] MEDS ORDERED: CARDIZEM PO SCH (14:00)
--- NOTE | 2018-09-06 17:07 | INFECTIOUS DISEASE PROGRESS NO ---
DATE: 09/06/2018 PRESENT ILLNESS: The patient was admitted to the hospital with fever and weakness and confusion. He has made a dramatic improvement overnight. He previously was admitted for pericarditis, and now I am not exactly sure what caused him to have fever and an altered mental status. MEDICATIONS: The patient is on vancomycin and cefepime; this is day 1 of treatment for both. The patient also is receiving steroids. PHYSICAL EXAMINATION: Vital Signs: Temperature is 98 degrees, pulse 82, respirations 24, blood pressure 117/66. General: This is an ill-appearing, elderly male. He does look better than he did yesterday. He is awake and can carry on a coherent conversation. Head, eyes, ears, nose, and throat: He can hear my spoken words and see near objects. He does not have any white patches on his tongue. Neck: No stiffness. Lungs: Clear to auscultation. Cardiovascular: Regular heart rate. Abdomen: Soft and nontender. Neurologic: The patient is alert. As mentioned, he can carry on a coherent conversation. He can move his extremities. There is no tremor. ASSESSMENT AND PLAN: The patient had pericarditis, but he does not look like he has it now. As mentioned above, I am not certain as to what is causing the patient's fever and altered mental status, but he has improved dramatically. My plan is to continue the current antibiotics. COMORBIDITIES: The patient recently had pericarditis. He also has diabetes mellitus, cigarette smoking, and COPD. cc: Sundeep Hinds MD
[2018-09-06] MEDS: COLACE PO SCH (20:27)
[2018-09-06] MEDS: CARDIZEM 125 MG in NS 100 ML IV SCH (23:48)
[2018-09-07] MEDS: MAXIPIME 2 GM in NS 100 ML IV SCH ×2 (01:12→13:10)
[2018-09-07] MEDS: SOLU-MEDROL IV SCH ×3 (04:15→17:53)
[2018-09-07] MEDS: VANCOMYCIN 2,000 MG in NS 500 ML IV SCH ×2 (04:16→17:52)
[2018-09-07] MEDS: PRILOSEC PO SCH (06:05)
[2018-09-07 06:13] LABS: HEMATOCRIT 37.7 % (42.0-52.0); HEMOGLOBIN 12.4 g/dL (14.0-18.0); IMM GRAN# 0.07 X1000 (0.0-0.04); IMM GRAN% 0.5 % (0.0-0.5); LYMPH% 4.6 % (20.5-51.1); MCHC 32.9 g/dL (33-37); MCV 85.1 FL (81-99); MONO# 0.45 X1000 (0.11-0.59); MPV 10.7 FL (7.4-10.4); NEUT# 13.95 X1000 (1.4-6.5); NEUT% 91.9 % (42.2-75.2); PLT 278 X1000 (130-400); RBC 4.43 XMIL (4.7-6.1); RDW 14.4 % (11.5-14.5); WBC 15.17 X1000 (4.8-10.8)
[2018-09-07 06:30] LABS: AGAP 9; ALB/GLOB RATIO 0.8; ALBUMIN 2.5 g/dL (3.5-5.0); ALKALINE PHOSPHATASE 115 U/L (32-122); BUN 22 mg/dL (8-22); CALCIUM 8.7 mg/dL (8.8-10.2); CHLORIDE 104 mmol/L (98-107); COSMO 288; CREATININE 0.6 mg/dL (0.7-1.2); ESTIMATED GFR > 60; GLUCOSE 324 mg/dL (70-104); GOT 25 U/L (10-34); GPT 38 U/L (10-44); POTASSIUM 4.1 mmol/L (3.5-5.1); SODIUM 136 mmol/L (136-145); TCO2 23 mmol/L (25-35); TOTAL BILIRUBIN 0.31 mg/dL (0.20-1.00); TOTAL PROTEIN 5.8 g/dL (6.3-8.3)
[2018-09-07] MEDS: HUMALOG SUBQ SCH ×5 (06:38→20:13)
[2018-09-07 06:44] LABS: LYMPHS 6 % (21-51); MONO 3 % (1-9); SEGS 91 % (42-75)
[2018-09-07 06:45] LABS: BURR CELLS OCCASIONAL
--- NOTE | 2018-09-07 07:12 | EKG Report ---
Test Performed on : 09/07/2018 06:58:55 AM Test Reason : atrial fibrillation/pericarditis Blood Pressure : / mmHG Vent. Rate : 070 BPM Atrial Rate : 070 BPM P-R Int : 164 ms QRS Dur : 090 ms QT Int : 462 ms P-R-T Axes : 028 000 066 degrees QTc Int : 498 ms Normal sinus rhythm. Nonspecific ST and T wave abnormality Abnormal ECG When compared with ECG of 05-SEP-2018 08:05, Vent. rate has decreased BY 60 BPM Non-specific change in ST segment in Anterior leads Confirmed by Danny BLUNT, Raul Elizabeth ([id number]) on 09/08/2018 7:19:04 AM
--- NOTE | 2018-09-07 07:56 | CARDIOLOGY PROGRESS NOTE ---
DATE: 09/07/2018 CHIEF COMPLAINT: Confusion, tachycardia. SUBJECTIVE: Mr. Cifuentes is sitting upright. He is fully conversant, fully alert, awake. He denies having chest pain. He is generally feels well. He is hungry. OBJECTIVE: VITAL SIGNS: Pulse 72, blood pressure 121/68, respirations 22, temperature 97 degrees. GENERAL: He is awake, follows commands. HEENT: Unremarkable. CHEST: Diminished breath sounds at both bases with dullness to percussion left base. HEART: Sounds have regular rhythm. I do not hear a gallop or murmur. ABDOMEN: Nontender. No masses, no hepatomegaly. EXTREMITIES: Showed decreased pulses. No obvious edema. NEUROLOGICAL: Follows commands. Moves 4 extremities. BLOOD WORK: Today, white count has decreased to 15,000, hemoglobin 12.4, hematocrit 37.7. Sodium 136, potassium 4.1, BUN 22, creatinine 0.6. IMPRESSION: 1. Patient who presented with confusion, tachycardia, and imaging evaluation of the heart consistent with organizing subacute pericarditis. 2. History of tobacco abuse. 3. History of mild coronary heart disease. 4. Diabetes mellitus type 2. RECOMMENDATIONS: At this point in time, I would continue high dose steroids as I had ordered. Once we finish the IV Solu-Medrol, we need to switch him over to prednisone 1 mg per kilogram/day for the next few weeks and then start slow tapering.We will switch his IV Cardizem to oral low dose Cardizem for the time being. The patient will have to be followed in the outpatient setting clinically and by means of CT of the chest and echocardiogram. He needs to stay on Colchicine to prevent recurrence of this condition. Further advice will be forthcoming. The patient seems to be progressing very well. cc: Issa Baldwin MD [facility]
[2018-09-07] MEDS: CARDIZEM PO SCH ×3 (07:58→19:38)
[2018-09-07] MEDS: ASPIRIN PO SCH ×2 (07:58→08:31)
[2018-09-07] MEDS: VITAMIN D PO SCH ×2 (07:58→08:32)
[2018-09-07] MEDS: LOPRESSOR PO SCH ×3 (07:58→20:06)
[2018-09-07] MEDS: COLCRYS PO SCH ×3 (07:58→20:06)
[2018-09-07] MEDS: NEURONTIN PO SCH ×4 (07:58→17:53)
[2018-09-07] MEDS: BASAGLAR SUBQ SCH (07:59)
--- NOTE | 2018-09-07 08:39 | Diag Imaging Result Doc PS360 ---
EXAM: CHEST-PORTABLE HISTORY: Eval for worsening pleural effusion TECHNIQUE: Portable chest COMPARISON: 09/04/2018 FINDINGS: The lungs are well expanded although there is atelectasis with infiltrates in the left lung base with a small left pleural effusion. No pulmonary edema. Right-sided PICC line in good position. No cardiomegaly. There has been surgery to the lower neck. IMPRESSION: Left basilar infiltrates and atelectasis with a small pleural effusion Electronically signed by Christos West 09/07/2018 8:37 AM
--- NOTE | 2018-09-07 12:34 | PROGRESS NOTE ---
DATE: 09/07/2018 INTERVAL HISTORY: No events overnight. SUBJECTIVE: Patient is feeling better today. We discussed about rheumatoid arthritis finding. I discussed about autoimmune disease. He persistently denies any stiffness as such, but sometimes he does mention that he feels like his fingers get very tight in the morning when he tries to move them and gets better during the day. However, the history is not very consistent. He does again mention that his father was diagnosed with lupus. The patient denies currently chest pain or shortness of breath, nausea, vomiting, abdominal pain. OBJECTIVE: Vital Signs: Next, temperature 96.8 degrees, pulse 77 per minute, respiratory rate 14 per minute, blood pressure 93/52, saturating 94 to 96 percent on 4 L nasal cannula. HEENT: On physical examination, oral cavity is moist. Generally does not appear in any acute distress. No pallor, cyanosis or icterus. Lungs: Air entry bilaterally equal. No wheeze or rhonchi. Decreased air entry in left infrascapular region with mild crackles. Cardiovascular: S1, S2 normal. Tachycardic, irregular. No murmur, rub, or gallop. Abdomen: Soft, nontender. No jugular venous distention. Extremities: No lower extremity edema. LABS: Suggestive of persistent leukocytosis. I elevated hemoglobin, hematocrit , and platelet count. Eosinophil count of zero. BMP suggestive of normal electrolytes, normal kidney function and hyperglycemia, which is likely related to steroid use. Otherwise, most of the workup for infectious has been negative so far. The only positive workup he has had is positive elevated rheumatoid arthritis factor, as well as mildly positive anti-CCP. ASSESSMENT AND PLAN: 1. Sepsis, likely due to ?left lower lobe pneumonia. Continue intravenous vancomycin and intravenous Zosyn. Appreciate Infectious Disease recommendation about deescalating antibiotics in near future as the suspicion of infection is a little low on differential. 2. Acute hypoxic respiratory failure due to bilateral pleural effusion and LLL pneumonia: Continut oxygen to maintain spo2 >94. 3. Bilateral pleural effusion, pericardial effusion, positive family history of father having lupus, inconsistent symptoms of bilateral finger stiffness in the morning with improvement during daytime, mildly positive rheumatoid arthritis factor, as well as anti- cyclic citrullinated peptide factor. However, considering his overall picture, it could be possible that he may have extra- articular manifestations of rheumatoid arthritis. I will start him on low- dose steroids after his intravenous steroid. I would await until he sees curing press maintainer before starting him on hydroxychloroquine, and I would suggest him a rheumatology referral as an outpatient once his acute issues resolve. 3. Atrial fibrillation with rapid ventricular rate mixed with sinus tachycardia and premature atrial complexes on presentation. Continue metoprolol and oral diltiazem. 4. Generalized weakness and acute encephalopathy on presentation, improved after intravenous antibiotics and steroids. Lumbar puncture was unremarkable. 5. Others: Continue home aspirin, vitamin D, docusate. 6. Hyperglycemia. In the setting of steroid use, add mealtime insulin. Continue glargine and sliding scale insulin. He does have history of insulin-dependent diabetes mellitus. DISPOSITION: The patient appears hemodynamically stable, and I am transferring him to [facility]. Plans of care were discussed with him. All of his questions have been answered satisfactorily. cc: Ronald Reyna MD MTDD
--- NOTE | 2018-09-07 18:50 | INFECTIOUS DISEASE PROGRESS NO ---
DATE: 09/07/2018 PRESENT ILLNESS: The patient has made dramatic improvement from when he came in with fever, weakness and confusion. Now he appears to have a left lower lobe infiltrate due to pneumonia. All of his spinal fluid studies show there is no infection present in the central nervous system. MEDICATIONS: The patient is on a combination of vancomycin and cefepime for the second day. OBJECTIVE: Vital signs: Temperature is 98 degrees, pulse 73, respirations 18, blood pressure 135/70. In general this is a fairly healthy-appearing elderly male. He is tonight in no acute distress. Head, eyes, ears, nose and throat: He can hear my spoken words and see near objects. He does not have any white patches on his tongue. Neck: No stiffness. The patient has a large lipoma on the posterior part of his neck. Integument: No rash. Lungs clear to auscultation. Cardiovascular: Heart rate is regular. Abdomen is soft and nontender. Thorax: The patient's incision from the pericardial window surgery is intact and not erythematous. The patient's neurologic status has improved quite a bit. LABORATORY DATA: The patient's CBC shows a white count of 15,170, hemoglobin 12.4, platelet count 278,000. Swab for influenza is negative. Blood and spinal fluid cultures are negative. HIV antibody is negative. Creatinine is 0.6, GFR is greater than 60. ASSESSMENT AND PLAN: 1. The patient had pericarditis, now it appears he has a pneumonia which is responding to antibiotic therapy. His mental status has improved tremendously. 2. Comorbidities: He recently had pericarditis. He also has diabetes mellitus, cigarette smoking and chronic obstructive pulmonary disease. cc: Sundeep Hinds MD
[2018-09-07] MEDS: COLACE PO SCH (20:06)
[2018-09-08] MEDS: MAXIPIME 2 GM in NS 100 ML IV SCH ×2 (03:00→13:11)
[2018-09-08] MEDS: CARDIZEM PO SCH ×4 (03:00→22:02)
[2018-09-08] MEDS: VANCOMYCIN 2,000 MG in NS 500 ML IV SCH ×2 (05:11→18:18)
[2018-09-08 05:46] LABS: BASO# 0.01 X1000 (0.0-0.2); BASO% 0.1 % (0.0-0.8); HEMATOCRIT 36.9 % (42.0-52.0); HEMOGLOBIN 12.2 g/dL (14.0-18.0); LYMPH# 0.66 X1000 (1.2-3.4); LYMPH% 4.7 % (20.5-51.1); MCH 28.3 PG (27-31); MCHC 33.1 g/dL (33-37); MCV 85.6 FL (81-99); MONO# 0.43 X1000 (0.11-0.59); MONO% 3.1 % (1.7-9.3); MPV 11.1 FL (7.4-10.4); PLT 293 X1000 (130-400); RBC 4.31 XMIL (4.7-6.1); RDW 14.3 % (11.5-14.5); WBC 13.98 X1000 (4.8-10.8)
[2018-09-08 05:52] LABS: AGAP 11; ALB/GLOB RATIO 0.7; ALBUMIN 2.4 g/dL (3.5-5.0); ALKALINE PHOSPHATASE 108 U/L (32-122); BUN 22 mg/dL (8-22); CHLORIDE 104 mmol/L (98-107); COSMO 287; CREATININE 0.6 mg/dL (0.7-1.2); ESTIMATED GFR > 60; GLUCOSE 211 mg/dL (70-104); GOT 13 U/L (10-34); GPT 33 U/L (10-44); SODIUM 139 mmol/L (136-145); TCO2 24 mmol/L (25-35); TOTAL BILIRUBIN 0.27 mg/dL (0.20-1.00); TOTAL PROTEIN 5.8 g/dL (6.3-8.3)
[2018-09-08] MEDS: PRILOSEC PO SCH (06:28)
[2018-09-08] MEDS: HUMALOG SUBQ SCH ×6 (06:34→22:06)
[2018-09-08] MEDS: LOPRESSOR PO SCH ×2 (08:02→22:04)
[2018-09-08] MEDS: VITAMIN D PO SCH (08:02)
[2018-09-08] MEDS: COLCRYS PO SCH ×2 (08:02→22:02)
[2018-09-08] MEDS: NEURONTIN PO SCH ×3 (08:03→18:19)
[2018-09-08] MEDS: ASPIRIN PO SCH (08:04)
[2018-09-08] MEDS: PREDNISONE PO SCH (08:07)
[2018-09-08] MEDS: BASAGLAR SUBQ SCH (08:08)
--- NOTE | 2018-09-08 09:12 | PROGRESS NOTE ---
DATE: 09/08/2018 SUBJECTIVE: This patient is doing much better. He is not complaining of shortness of breath or chest pain at this moment. He has completed treatment with IV steroids and we will place this patient on p.o. steroids, high dose as suggested by cardiology department. We will continue with the same treatment. I think he is stable enough to go to the CIC unit or a private room. OBJECTIVE: Vital Signs: Temperature 97.2 degrees, pulse 85, respiratory rate 20, blood pressure 141/79, oxygen saturation 96 on 4 L of nasal cannula. HEENT: Head normocephalic. No trauma. PERRLA. Neck: Supple. No JVD. Central trachea. Cardiovascular: RRR. Chest: Clear to auscultation. Some crepitus at the bases. Abdomen: Soft, nontender, nondistended. No hepatosplenomegaly. Extremities: No edema. No clubbing. No cyanosis. Neurological Examination: The patient, at this moment, is alert and oriented x3. No focal neurological deficits. Laboratory: WBC 13.9, hemoglobin 12.2, hematocrit 36.9, platelets 293,000. Sodium 139, potassium 4, chloride 104, bicarbonate 24, BUN 22, creatinine 0.6, glucose 211, calcium 9, albumin 2.4. ASSESSMENT AND PLAN: 1. Sepsis, likely secondary to left lower lobe pneumonia. Infectious disease department on board. Continue with vancomycin and cefepime. Continue with oxygen supplementation. 2. Acute hypoxemic respiratory failure due to bilateral pleural effusion and left lower lobe pneumonia. Continue with oxygen supplementation. He is breathing better. He is feeling better. 3. Pericarditis. This patient has been receiving steroids and since then, his symptoms are better. He came in confused and tachycardic. Cardiology department has suggested to continue with steroids. 4. Bilateral pleural effusion, pericardial effusion with a positive family history of father having lupus. Apparently, he has been complaining of finger stiffness in the mornings with improvement during the daytime and also some coldness. He has mildly positive rheumatoid arthritis factor as well as anticyclic citrullinated peptide factor. C3 and C4 are negative. Human immunodeficiency virus is negative as well. Not sure if this is an extra-articular manifestation of rheumatoid arthritis. He has been placed on steroids and I would prefer to send this patient to a [employer] airspace control officer once he is more stable. 5. Atrial fibrillation with rapid ventricular response, resolved. At this moment, we will continue with metoprolol and oral diltiazem. 6. Generalized weakness. He looks much better. 7. Encephalopathy, resolved. 8. Type 2 diabetes. Continue with the same management. His blood sugar has been elevated but, also, he has been receiving steroids. I will ask for a hemoglobin A1c. 9. History of mild coronary artery disease. Aware. No chest pain at this moment. 10. History of tobacco abuse. This patient has been highly advised against tobacco use. I will continue with daily cessation education. 11. Left lower lobe pneumonia. Continue with the same management. cc: Prosper Alexander MD
--- NOTE | 2018-09-08 09:22 | CARDIOLOGY PROGRESS NOTE ---
DATE: 09/08/2018 CHIEF COMPLAINT: Confusion, tachycardia. SUBJECTIVE: Mr. Cifuentes is feeling a whole lot better. His appetite is very good. He has no chest pain. He is not tachycardic. He just finished his breakfast. OBJECTIVE: VITAL SIGNS: Blood pressure 151/84, temperature is 97.2 degrees, respirations 20 , pulse 75. GENERAL: He is awake, alert, in no distress. HEENT: Unremarkable. CHEST: Diminished breath sounds at the bases. HEART: Sounds regular and rhythmic. No gallop or murmur. ABDOMEN: Nontender. EXTREMITIES: Show no edema. NEUROLOGICAL: Follows commands. Moves 4 extremities. BLOOD WORK: Sodium 139, potassium 4.0, BUN 22, creatinine 0.6. His white cell count 13,000, hemoglobin 12.2, hematocrit 36.9. Chest x-ray done yesterday shows left basilar infiltrates, atelectasis with a small effusion. IMPRESSION: 1. Patient with subacute pericarditis organizing. 2. History of mild coronary heart disease. 3. History of being a tobacco user. 4. Recent episode of pneumonia with atelectasis. 5. Diabetes mellitus type 2. RECOMMENDATIONS: Per discussion with Dr. Vargas and the Hospitalist Service, we will keep the patient on high dose prednisone 1 to 1.5 mg/kg of body weight per day. Upon discharge, I think we can drop the prednisone to 60 mg a day and we will follow him at the office. He will continue also taking Colchicine. We will have to monitor his blood count periodically and his renal function. He needs to be placed on some sort of protective stomach acid reducing medication. We will follow him. cc: Issa Baldwin MD [facility]
--- NOTE | 2018-09-08 17:10 | INFECTIOUS DISEASE PROGRESS NO ---
DATE: 09/08/2018 PRESENT ILLNESS: The patient has a left lower lobe pneumonia. MEDICATION: The patient is in his third day of getting the combination of vancomycin and cefepime. OBJECTIVE: Vital signs: Temperature is 97.3 degrees, pulse 77, respirations 22, blood pressure 145/77. General: This is a fairly healthy-appearing, elderly male. He is in no acute distress. Head, eyes, ears, nose, and throat: He can hear my spoken words and see near objects. He does not have any white coating on his tongue. Neck: No meningismus. Lungs clear to auscultation. Cardiovascular: Heart rate is regular. Thorax: The patient's pericardial window incision is intact. Abdomen is soft and nontender. Neurologic: The patient is alert. He can move his extremities. He is able to talk. There is no tremor. DIAGNOSTIC DATA: Chest x-ray shows a left lower lobe pneumonia. LABORATORY DATA: The patient's creatinine is 0.6. GFR is greater than 60. Hepatitis C antibody is negative. CBC shows a white count of 13,980, hemoglobin 12.2, and platelet count 293,000. ASSESSMENT AND PLAN: 1. The patient has pneumonia, and I will continue his current antibiotics. The patient does have leukocytosis, but I think the majority of the leukocytosis is caused by steroid treatment. 2. Comorbidities: The patient recently had pericarditis, necessitating a pericardial window. 3. The patient also has diabetes mellitus, cigarette smoking and chronic obstructive pulmonary disease. cc: Sundeep Hinds MD
[2018-09-08] MEDS: COLACE PO SCH (22:02)
[2018-09-09] MEDS: MAXIPIME 2 GM in NS 100 ML IV SCH ×2 (03:14→12:00)
[2018-09-09] MEDS: CARDIZEM PO SCH ×4 (03:15→20:22)
[2018-09-09] MEDS: VANCOMYCIN 2,000 MG in NS 500 ML IV SCH (04:12)
[2018-09-09 06:31] LABS: BASO# 0.01 X1000 (0.0-0.2); BASO% 0.1 % (0.0-0.8); HEMATOCRIT 38.5 % (42.0-52.0); HEMOGLOBIN 12.7 g/dL (14.0-18.0); IMM GRAN# 0.04 X1000 (0.0-0.04); IMM GRAN% 0.3 % (0.0-0.5); LYMPH# 0.83 X1000 (1.2-3.4); LYMPH% 6.8 % (20.5-51.1); MCH 28.3 PG (27-31); MCV 85.7 FL (81-99); MONO# 0.62 X1000 (0.11-0.59); MONO% 5.1 % (1.7-9.3); MPV 10.5 FL (7.4-10.4); NEUT# 10.73 X1000 (1.4-6.5); NEUT% 87.7 % (42.2-75.2); PLT 274 X1000 (130-400); RBC 4.49 XMIL (4.7-6.1); RDW 14.1 % (11.5-14.5); WBC 12.23 X1000 (4.8-10.8)
[2018-09-09] MEDS: HUMALOG SUBQ SCH ×7 (06:31→20:20)
[2018-09-09 06:33] LABS: HEMOGLOBIN A1C 8.7 % (4.8-6.0)
[2018-09-09] MEDS: PRILOSEC PO SCH (06:40)
[2018-09-09 06:44] LABS: AGAP 9; ALB/GLOB RATIO 1.1; ALBUMIN 2.6 g/dL (3.5-5.0); ALKALINE PHOSPHATASE 111 U/L (32-122); BUN 17 mg/dL (8-22); CALCIUM 8.8 mg/dL (8.8-10.2); CHLORIDE 103 mmol/L (98-107); COSMO 288; CREATININE 0.5 mg/dL (0.7-1.2); ESTIMATED GFR > 60; GLUCOSE 300 mg/dL (70-104); GOT 7 U/L (10-34); GPT 27 U/L (10-44); SODIUM 138 mmol/L (136-145); TCO2 26 mmol/L (25-35); TOTAL BILIRUBIN 0.35 mg/dL (0.20-1.00); TOTAL PROTEIN 4.9 g/dL (6.3-8.3)
[2018-09-09] MEDS: NEURONTIN PO SCH ×3 (09:16→16:17)
[2018-09-09] MEDS: COLCRYS PO SCH ×2 (09:17→20:21)
[2018-09-09] MEDS: VITAMIN D PO SCH (09:17)
[2018-09-09] MEDS: PREDNISONE PO SCH (09:20)
[2018-09-09] MEDS: BASAGLAR SUBQ SCH (09:23)
[2018-09-09] MEDS: ASPIRIN PO SCH (09:24)
[2018-09-09] MEDS: LOPRESSOR PO SCH ×2 (09:24→20:21)
--- NOTE | 2018-09-09 16:39 | INFECTIOUS DISEASE PROGRESS NO ---
DATE: 09/09/2018 PRESENT ILLNESS: The patient has a left lower lobe pneumonia. MEDICATIONS: The patient has been on vancomycin and cefepime for the past 4 days. PHYSICAL EXAMINATION: Vital Signs: Temperature is 97.7 degrees, pulse 73, respirations 14, blood pressure 157/83. General: This is a somewhat ill-appearing elderly male. He is in no acute distress. Head/eyes/ears/nose/throat: He can hear my spoken words and see near objects. He does not have any white patches on his tongue. Neck: No stiffness. Lungs: Clear to auscultation. Cardiovascular: Heart rate is regular. Abdomen: Soft and nontender. Thorax: The patient's pericardial window incision is intact. Neurologic: Patient is alert. He can move his extremities. There is no tremor. LAB AND X-RAY: There is no new radiographic study. The patient's CBC shows a white count of 12,230, hemoglobin 12.7, and platelet count 274,000. Creatinine is 0.5. GFR is greater than 60. ASSESSMENT AND PLAN: I am going to switch the patient from vancomycin and cefepime to a combination of Ceftin 500 mg every 12 hours and doxycycline 100 mg p.o. every 12 hours. Both of these agents are to be given for an additional 7 days. I plan on giving the patient an appointment for my office so we can see how the patient is doing and also seeing if the pneumonia has cleared up on chest x-ray. COMORBIDITIES: Patient had pericarditis. He also has diabetes mellitus. He is a cigarette smoker and he has chronic obstructive pulmonary disease. cc: Sundeep Hinds MD
--- NOTE | 2018-09-09 18:04 | PROGRESS NOTE ---
DATE: 09/09/2018 SUBJECTIVE: The patient is doing much better. He is not complaining of shortness of breath or chest pain, but generalized weakness. The plan is to send this patient to a rehab center. OBJECTIVE: Vital Signs: Temperature 98.2, pulse 81, respiratory rate 22, blood pressure 118/82, oxygen saturation 97% on room air. HEENT: Head normocephalic. No trauma. PERRLA. Neck: Supple. No JVD. No masses. Central trachea. Chest: Clear to auscultation. No wheezing. No rales. Abdomen: Soft, nontender, nondistended. No hepatosplenomegaly. Extremities: No edema. No clubbing. No cyanosis. Neurological: The patient is alert and oriented x3. No focal neurological deficits. LABORATORY: WBC 12.2, hemoglobin 12.7, hematocrit 38.5, platelets 274. Sodium 138, potassium 4, chloride 103, bicarbonate 26, BUN 17, creatinine 0.5 glucose 300. Calcium 8.8. Albumin 2.6. ASSESSMENT AND PLAN: 1. Sepsis, likely secondary to left lower lobe pneumonia, Infectious Disease Department on board. Continue with the same management. Oxygen supplementation, breathing treatment. 2. Acute hypoxemic respiratory failure due to bilateral pleural effusion and left lower lobe pneumonia, this is getting much better. Continue breathing treatment. 3. Pericarditis. This patient has been receiving IV steroids, which has been switched to p.o. steroids, high dose. Cardiology Department on board. He came in confused and tachycardic. 4. Bilateral pleural effusion. Pericardial effusion with a positive family history of father having lupus. Apparently he has been complaining of finger stiffness in the morning with improvement during the day and also some coldness, but not today. He has a mild positive rheumatoid arthritis factor as well as anti cyclic citrulline aided peptic factor, C3 and C4 negative. HIV is negative as well. I am not sure if this is an extra-articular Rose manifestation of rheumatoid arthritis. He has been placed on steroids and I would prefer to send this patient to a cook manager once he is more stable. 5. Atrial fibrillation with rapid ventricular response, resolved. At this moment, we will continue with metoprolol and oral diltiazem. 6. Generalized weakness. He looks much better, but still weak. 7. Encephalopathy, resolved. 8. Type 2 diabetes. He has been hyperglycemic due to the high dose of the steroids. Hemoglobin A1c is 8.7 as well so that means that the blood sugar has been a little bit uncontrolled at home. 9. History of mild coronary artery disease, no chest pain at this moment. 10. Tobacco use. This patient has been highly advised against tobacco use. I will continue with daily cessation education. 11. Left lower lobe pneumonia. Continue with same management. cc: Prosper Alexander MD
[2018-09-09] MEDS: COLACE PO SCH (20:21)
[2018-09-09] MEDS: CEFTIN PO SCH (20:22)
[2018-09-09] MEDS: DOXYCYCLINE PO SCH (20:22)
[2018-09-10] MEDS: CARDIZEM PO SCH ×4 (03:37→20:45)
[2018-09-10] MEDS: HUMALOG SUBQ SCH ×9 (06:07→20:46)
[2018-09-10] MEDS: PRILOSEC PO SCH (06:07)
[2018-09-10 06:28] LABS: BASO# 0.01 X1000 (0.0-0.2); BASO% 0.1 % (0.0-0.8); EOS# 0.04 X1000 (0.0-0.7); EOS% 0.4 % (0.0-10.0); HEMATOCRIT 41.5 % (42.0-52.0); IMM GRAN# 0.06 X1000 (0.0-0.04); IMM GRAN% 0.5 % (0.0-0.5); LYMPH# 0.66 X1000 (1.2-3.4); LYMPH% 5.9 % (20.5-51.1); MCH 28.4 PG (27-31); MCHC 33.7 g/dL (33-37); MCV 84.2 FL (81-99); MONO# 0.48 X1000 (0.11-0.59); MONO% 4.3 % (1.7-9.3); MPV 10.7 FL (7.4-10.4); NEUT# 10.01 X1000 (1.4-6.5); NEUT% 88.8 % (42.2-75.2); PLT 294 X1000 (130-400); RBC 4.93 XMIL (4.7-6.1); RDW 13.9 % (11.5-14.5); WBC 11.26 X1000 (4.8-10.8)
[2018-09-10 06:57] LABS: AGAP 12; BUN 18 mg/dL (8-22); CALCIUM 8.9 mg/dL (8.8-10.2); CHLORIDE 100 mmol/L (98-107); COSMO 290; CREATININE 0.5 mg/dL (0.7-1.2); ESTIMATED GFR > 60; GLUCOSE 290 mg/dL (70-104); POTASSIUM 3.7 mmol/L (3.5-5.1); SODIUM 139 mmol/L (136-145); TCO2 27 mmol/L (25-35)
[2018-09-10 07:07] LABS: LYMPHS 2 % (21-51); SEGS 98 % (42-75)
[2018-09-10] MEDS: DOXYCYCLINE PO SCH ×2 (09:00→20:44)
[2018-09-10] MEDS: LOPRESSOR PO SCH ×2 (09:00→20:45)
[2018-09-10] MEDS: VITAMIN D PO SCH (09:00)
[2018-09-10] MEDS: PREDNISONE PO SCH (09:00)
[2018-09-10] MEDS: NEURONTIN PO SCH ×3 (09:00→16:49)
[2018-09-10] MEDS: COLCRYS PO SCH ×2 (09:01→20:45)
[2018-09-10] MEDS: CEFTIN PO SCH ×2 (09:01→20:44)
[2018-09-10] MEDS: ASPIRIN PO SCH (09:01)
[2018-09-10] MEDS: BASAGLAR SUBQ SCH (09:03)
[2018-09-10] MEDS ORDERED: BASAGLAR SUBQ ONE (09:27)
[2018-09-10] MEDS ORDERED: LOVENOX SUBQ SCH (11:00)
[2018-09-10] MEDS: ELIQUIS PO SCH ×2 (12:21→20:45)
--- NOTE | 2018-09-10 13:07 | PROGRESS NOTE ---
DATE: 09/10/2018 SUBJECTIVE: This patient is doing much better. No acute events overnight. OBJECTIVE: Vital Signs: Temperature 98.7, pulse 76, respiratory rate 14, blood pressure 149/77, and oxygen saturation 94% on 2 L of nasal cannula. HEENT: Head normocephalic. No trauma. PERRLA. Neck: Supple. No JVD. No masses. Central trachea. Chest: Clear to auscultation. No wheezing. No rales. Abdomen: Soft, nontender, and nondistended. No hepatosplenomegaly. Extremities: No edema. No clubbing. No cyanosis. Neurological: The patient is alert and oriented x3. No focal neurological deficits. LABORATORY: WBC 11.2, hemoglobin 14, hematocrit 41.5, and platelets 294,000. Sodium 139, potassium 3.7, chloride 100, bicarbonate 27, BUN 18, creatinine 0.5, glucose 290 , calcium 8.9, and hemoglobin A1c 8.7. ASSESSMENT AND PLAN: 1. Sepsis, likely secondary to left lower lobe pneumonia, Infectious Disease Department on board. Continue with the same management, oxygen supplementation and breathing treatment. 2. Acute hypoxemic respiratory failure due to bilateral pleural effusion, and left lower lobe pneumonia, this is getting better. Continue with same management. 3. Pericarditis. This patient has been receiving IV steroids which has been stopped, and now he is on p.o. treatment. We will continue with high dose of steroids per cardiology department. Upon discharge, likely we need to change it to prednisone 60 daily and follow up with Cardiology as an outpatient. 4. Bilateral pericardial effusion with a positive family history of father having lupus. Apparently, he has been complaining of finger stiffness in the morning with improvement during the day, and also some coldness but not for the past few days. He has a mild positive rheumatoid arthritis factor as well as anti cyclic peptic factor, C3 and C4 negative, HIV negative as well, probably, but I am not sure if this is an extra-articular manifestation of rheumatoid arthritis. Continue with steroids if he is feeling better. 5. Atrial fibrillation with rapid ventricular response, resolved. At this moment, we will continue with metoprolol and oral diltiazem. 6. Generalized weakness, looks much better, but still weak. 7. Encephalopathy resolved. 8. Type 2 diabetes. Hemoglobin A1c is 8.7. Blood sugar still elevated due to steroid use. 9. Tobacco use. This patient has been highly advised against tobacco use. I will continue with daily cessation education. 10. History of coronary artery disease. No chest pain at this moment. 11. Left lower lobe pneumonia as per #1. cc: Prosper Alexander MD MTDD
--- NOTE | 2018-09-10 13:42 | CARDIOLOGY PROGRESS NOTE ---
DATE: 09/10/2018 CHIEF COMPLAINT: Confusion, tachycardia. SUBJECTIVE: Mr. Cifuentes is doing much better. He is sitting upright. He has been ambulating in the hallways with assistance. No chest pain. No shortness of breath. No cough. No fever. OBJECTIVE: Vital signs: Temperature is 98.7, pulse 76, respirations 14, blood pressure 149/77. He is awake, alert, no distress. HEENT is unremarkable. Chest: Diminished breath sounds at the left base. Heart sounds are regular and rhythmic. I do not hear gallop, rub or murmur. Abdomen is nontender. Extremities showed no edema. Neurologic: Follows commands. Moves all 4 extremities. DIAGNOSTIC DATA: Sodium is 139, potassium 3.7, BUN is 18, creatinine 0.5. IMPRESSION: 1. The patient is with subacute pericarditis. This would be the organizing type. 2. Previous atelectasis and left lower lobe pneumonia. 3. Episodes of paroxysmal atrial fibrillation. 4. Tobacco user. 5. History of coronary heart disease. RECOMMENDATIONS: Because of the paroxysmal atrial fibrillation and per discussion with Dr. Vargas, we will go ahead and resume Eliquis that was previously ordered by Dr. Brandin Gross during his initial admission a month ago. Upon discharge, we will arrange for decreasing or tapering doses of prednisone, continue Eliquis and will follow him at the office. cc: Issa Baldwin MD
[2018-09-10] MEDS: COLACE PO SCH (20:45)
[2018-09-11] MEDS: CARDIZEM PO SCH ×4 (02:29→20:40)
[2018-09-11] MEDS: HUMALOG SUBQ SCH ×7 (06:08→20:41)
[2018-09-11] MEDS: PRILOSEC PO SCH (06:09)
[2018-09-11 06:25] LABS: BASO# 0.01 X1000 (0.0-0.2); BASO% 0.1 % (0.0-0.8); EOS# 0.04 X1000 (0.0-0.7); EOS% 0.3 % (0.0-10.0); HEMATOCRIT 42.4 % (42.0-52.0); HEMOGLOBIN 14.1 g/dL (14.0-18.0); IMM GRAN# 0.06 X1000 (0.0-0.04); IMM GRAN% 0.4 % (0.0-0.5); LYMPH# 1.02 X1000 (1.2-3.4); LYMPH% 6.8 % (20.5-51.1); MCH 28.1 PG (27-31); MCHC 33.3 g/dL (33-37); MCV 84.5 FL (81-99); MONO# 0.75 X1000 (0.11-0.59); MPV 10.7 FL (7.4-10.4); NEUT# 13.16 X1000 (1.4-6.5); NEUT% 87.4 % (42.2-75.2); PLT 322 X1000 (130-400); RBC 5.02 XMIL (4.7-6.1); RDW 13.9 % (11.5-14.5); WBC 15.04 X1000 (4.8-10.8)
[2018-09-11 06:40] LABS: AGAP 10; BUN 20 mg/dL (8-22); CALCIUM 9.4 mg/dL (8.8-10.2); CHLORIDE 101 mmol/L (98-107); COSMO 288; CREATININE 0.6 mg/dL (0.7-1.2); ESTIMATED GFR > 60; GLUCOSE 170 mg/dL (70-104); POTASSIUM 3.6 mmol/L (3.5-5.1); SODIUM 141 mmol/L (136-145); TCO2 30 mmol/L (25-35)
[2018-09-11 07:13] LABS: BANDS 2 % (0-1); LYMPHS 2 % (21-51); MONO 2 % (1-9); SEGS 94 % (42-75)
[2018-09-11] MEDS: BASAGLAR SUBQ SCH (08:17)
[2018-09-11] MEDS: NEURONTIN PO SCH ×3 (08:18→16:26)
[2018-09-11] MEDS: VITAMIN D PO SCH (08:18)
[2018-09-11] MEDS: ELIQUIS PO SCH ×2 (08:18→20:40)
[2018-09-11] MEDS: LOPRESSOR PO SCH ×2 (08:18→20:39)
[2018-09-11] MEDS: CEFTIN PO SCH ×2 (08:18→20:39)
[2018-09-11] MEDS: PREDNISONE PO SCH (08:18)
[2018-09-11] MEDS: COLCRYS PO SCH ×2 (08:18→20:40)
[2018-09-11] MEDS: DOXYCYCLINE PO SCH ×2 (08:18→20:40)
[2018-09-11] MEDS: ASPIRIN PO SCH (08:19)
--- NOTE | 2018-09-11 11:07 | CARDIOLOGY PROGRESS NOTE ---
DATE: 09/11/2018 CHIEF COMPLAINT: Tachycardia, confusion. SUBJECTIVE: Mr. Cifuentes continues to progress well. He has been working with physical therapy. He says that yesterday he walked 250 feet. He is not having chest pain. No palpitations. His telemetry indicates sinus rhythm. OBJECTIVE: Blood pressure is 152/77, temperature 97.9, pulse 75, respirations 18. He is awake, alert and oriented, no distress. HEENT is unremarkable. Chest: Diminished breath sounds in the left base. Heart sounds are regular and rhythmic. I do not hear gallop or murmur. His abdomen is soft, nontender. Extremities showed no edema. Neurologic: Follows commands. Moves all 4 extremities. DIAGNOSTIC DATA: Blood work shows hemoglobin 14.1, hematocrit is 42.4. Sodium is 141, potassium 3.6, BUN is 20, creatinine 0.6. IMPRESSION: 1. The patient is with subacute organizing pericarditis. 2. Paroxysmal atrial fibrillation. 3. History of coronary artery disease. 4. Former tobacco user. 5. Diabetes mellitus type 2. RECOMMENDATIONS: We will treat the patient with spironolactone in addition to the prednisone to counteract the effects of potassium and blood pressure. Hopefully we will decrease his prednisone to 60 mg daily prior to discharge and then will gradually taper down maybe by 10 to 15 mg every week or so until we get down to a maintenance dose of 10 mg or so. We will follow him at the office. cc: Issa Baldwin MD
--- NOTE | 2018-09-11 14:18 | PROGRESS NOTE ---
DATE: 09/11/2018 SUBJECTIVE: The patient is awake, seated on the chair. Not in any obvious distress. OBJECTIVE: Vital Signs: Temperature 98.1 degrees, pulse 76, respiratory 18, blood pressure is 140/68, oxygen 96%. HEENT: Patient is atraumatic, normocephalic. Cardiovascular: S1, S2. Respiratory system: Has evidence of good air entry bilaterally. Abdomen: Soft, nontender. No masses felt. Extremities: Has 1+ edema in the lower extremities. Central nervous system: No obvious focal deficits noted. LABS: WBC is 15.04 hematocrit is 42.24 with a platelet count of 322,000. Sodium is 141, potassium 3.6, chloride is 101, bicarb 30 BUN is 20, creatinine 0.6. ASSESSMENT AND PLAN: 1. Sepsis. Secondary to left lower lobe pneumonia. Antibiotic management per Infectious Disease team. 2. Coronary artery disease./pericarditis/pericardial/atrial fibrillation. Management per the Cardiology team. 3. Bilateral pleural effusion. Consult with pulmonology. 4. Type 2 diabetes mellitus. Monitor blood sugar levels. Maintain patient on sliding scale insulin. 5. Deep vein thrombosis prophylaxis. The patient is currently on apixaban. 6. Gastrointestinal prophylaxis. PPI. cc: Nolberto Liu MD
[2018-09-11] MEDS: COLACE PO SCH (20:40)
[2018-09-12] MEDS: CARDIZEM PO SCH ×4 (02:45→20:44)
[2018-09-12] MEDS: PRILOSEC PO SCH (06:04)
[2018-09-12] MEDS: HUMALOG SUBQ SCH ×7 (06:05→20:45)
--- NOTE | 2018-09-12 08:30 | Diag Imaging Result Doc PS360 ---
EXAM: CHEST-1 VIEW 09/12/2018 HISTORY: SOB TECHNIQUE: AP portable at 08 0819 COMMENT: There is a pleural effusion on the left which may be slightly smaller than on 09/07/2018. There is a PICC line on the right with its tip in the superior vena cava. There is still some atelectasis or pneumonia in the left lower lobe. IMPRESSION: Improved left pleural effusion. Electronically signed by Yoni Marques 09/12/2018 8:28 AM
[2018-09-12] MEDS: ELIQUIS PO SCH ×2 (11:08→20:44)
[2018-09-12] MEDS: VITAMIN D PO SCH (11:08)
[2018-09-12] MEDS: COLCRYS PO SCH ×2 (11:08→20:44)
[2018-09-12] MEDS: PREDNISONE PO SCH (11:08)
[2018-09-12] MEDS: ASPIRIN PO SCH (11:08)
[2018-09-12] MEDS: LOPRESSOR PO SCH ×2 (11:09→20:45)
[2018-09-12] MEDS: NEURONTIN PO SCH ×3 (11:09→16:48)
[2018-09-12] MEDS: CEFTIN PO SCH ×2 (11:09→20:44)
[2018-09-12] MEDS: DOXYCYCLINE PO SCH ×2 (11:09→20:45)
[2018-09-12] MEDS: BASAGLAR SUBQ SCH (11:10)
--- NOTE | 2018-09-12 14:45 | PROGRESS NOTE ---
DATE: 09/12/2018 SUBJECTIVE: The patient resting comfortably in bed. Not in any obvious distress. OBJECTIVE: Vital signs: Temperature is 97.7 degrees, pulse 80, respiratory rate is 12, blood pressure 125/65, oxygen saturation is 98%. HEENT: He is atraumatic, normocephalic. Cardiovascular: S1, S2. Respiratory: Has evidence of good air entry bilaterally. Abdomen: Soft, nontender. No masses felt. Extremities: Has 1+ edema in the lower extremities. Central nervous system: No obvious focal deficits noted. LABS: Blood sugar is 220. ASSESSMENT AND PLAN: 1. Sepsis/left lower lobe pneumonia. Continue antibiotics as recommended by ID. 2. Coronary artery disease/pericarditis/atrial fibrillation. Management per the Cardiology team. 3. Bilateral pleural effusion. Pulmonology consulted. 4. Diabetes mellitus type 2. Monitor blood sugar levels. Maintain patient on sliding scale insulin. 5. Deep vein thrombosis prophylaxis. Patient is from apixaban. 6. Gastrointestinal prophylaxis. PPI. 7. Disposition. Plan is to send the patient to a rehab facility. Awaiting bed placement. cc: Nolberto Liu MD
--- NOTE | 2018-09-12 14:56 | INFECTIOUS DISEASE PROGRESS NO ---
DATE: 09/12/2018 PRESENT ILLNESS: Mr. Cifuentes has been treated for a left lower lobe pneumonia. MEDICATIONS: He is receiving Ceftin 500 mg by mouth every 12 hours and doxycycline 100 mg by mouth every 12 hours. He is also receiving prednisone 100 mg by mouth daily. PHYSICAL EXAMINATION: Vital Signs: Temperature is 97.7 degrees, pulse rate 80 , respiratory rate 12, blood pressure 125/65, O2 saturation is 98% on room air. General: This is a chronically ill- appearing, elderly gentleman. He is sitting up on the side of the bed, in no acute distress. HEENT: Atraumatic, normocephalic. Oral mucous membranes are pink and moist. Conjunctivae are pink. Neck: Supple. Trachea is midline. Cardiovascular: Heart rate and rhythm are regular. Normal sinus rhythm on the monitor. Respiratory: Lung sounds are clear to auscultation. Diminished to the left lower lobe. Abdomen: Soft, round, and nontender. Bowel sounds are active. Neurologic: He is awake, alert, and oriented. Able to move all extremities and walk in the canales with assistance. Integumentary: PICC line in place to the right upper arm. Site is without edema, erythema or drainage. LABORATORY AND X-RAY: No blood work today. Chest x-ray shows atelectasis or pneumonia in the left lower lobe with improved left pleural effusion. ASSESSMENT AND PLAN: Mr. Cifuentes is tentatively planning to go to rehab on discharge. They are looking for rehab bed at this point. We have been treating him for a left lower lobe pneumonia which is still present on the x-ray. The plan is to continue his Ceftin and doxycycline as ordered for another week, and we will follow up with him on discharge from the rehab unit. The patient does have a leukocytosis; however, he is receiving 100 mg of prednisone daily at this point. These plans have been discussed with and recommended by Dr. Hinds. COMORBIDITIES: He is elderly, with pericarditis and a recent pericardial window , diabetes mellitus, and cigarette smoking with COPD. Dictated by SANYA Luciano for Sundeep Hinds MD This chart was documented by, SANYA Luciano and accurately reflects the services performed, treatment plan and medical decisions as attested by the providers signature Sundeep Hinds MD. cc: Sundeep Hinds MD MTDD
--- NOTE | 2018-09-12 18:05 | CONSULTATION ---
DATE OF CONSULTATION: 09/12/2018 REQUESTING PROVIDER: Nolberto Liu MD REASON FOR CONSULTATION: Pleural effusion. HISTORY OF PRESENT ILLNESS: This is a 63-year-old male with a significant medical history including COPD with ongoing tobacco use, hypertension, peripheral arterial disease, coronary artery disease, hyperlipidemia, gastroesophageal reflux disease, type 2 diabetes mellitus, peripheral neuropathy, anemia, osteoarthritis, and multilevel herniated disk disease. He has been last admitted on 08/22/2018 to 08/29/2018 with pericarditis and pericardial effusion with tamponade and diastolic heart failure secondary to tamponade. He presented to the ER on 09/05/2018 with progressive weakness and confusion. He has been admitted with recurrent bilateral pleural effusion, persistent mild pericardial effusion and suspected sepsis with left lower lobe pneumonia. At the time of my examination, patient is sitting comfortably up in chair. He is at room air. He reports continuous mild dry cough. He has no shortness of breath, wheezing, chest pain, chest tightness or palpitations. He reports last bowel movement 2 to 3 days ago , but states that is normal for him. PAST MEDICAL AND SURGICAL HISTORY: 1. COPD with ongoing tobacco use. 2. Hypertension. 3. Peripheral arterial disease. 4. Coronary arterial disease, moderate degree. The patient had a heart catheterization in 2007. 5. Recent diagnosis of paroxysmal atrial fibrillation during previous admission , currently on metoprolol and Eliquis for stroke prophylaxis. 6. Recent diagnosis of pericardial effusion, pericarditis and tamponade status post pericardial window with pericardial biopsy on 08/24/[address] Rangel during the previous admission. 7. Recent diagnosis of diastolic heart failure secondary to tamponade during previous admission. 8. Hyperlipidemia. 9. Gastroesophageal reflux disease. 10. Type 2 diabetes mellitus, insulin dependent. 11. Peripheral neuropathy. 12. Iron deficiency anemia. 13. Osteoarthritis. 14. Multilevel herniated disk disease. 15. Right hip fracture status post open reduction internal fixation by Dr. Iverson on 04/12/2015. 16. Left hip fracture status post left bipolar hemiarthroplasty by Dr. Iverson on 06/15/2018. 17. Right shoulder arthroscopy. 18. Right wrist tendon repair. 19. Left wrist surgery. 20. Low back diskectomy. 21. Right knee arthroscopy. 22. Tonsillectomy. 23. Surgery for sleep apnea. 24. Sinus surgery. SOCIAL HISTORY: Patient currently live with his son. He used to smoke up to 2 packs per day but has being cutting down to half a pack recently. He has been smoking more than 40 years. He denies any history of alcohol or illicit drug use. FAMILY HISTORY: Positive for diabetes, hypertension, and lupus. ALLERGIES: Statins. REVIEW OF SYSTEMS: A 10 point review of systems was conducted, and the pertinent is listed within the HPI, otherwise noncontributory. PHYSICAL EXAMINATION: Vital signs: Temperature 97.9, blood pressure 101/68, pulse 82, respiratory rate 18, oxygen saturation 97% on room air. General: The patient is sitting comfortably up in chair. He appears chronically ill, but he is in no acute respiratory distress. HEENT: Atraumatic. Trachea midline. Respiratory: Auscultation reveals early inspiratory bilateral crackles with right worse than left. Cardiovascular: Distant heart sounds but with regular rate and rhythm. Gastrointestinal: Bowel sounds present in all 4 quadrants. Soft, nontender, nondistended. Extremities: No pedal edema. Bilateral lower extremity skin dry and scaly with mild cyanosis and coldness to touch. Dorsalis pedis 1+ bilaterally. PICC line in place to right upper extremity. Right forearm has a chronic callus like bump, which per patient is followed up outpatient by a fourth mate. Neurologic: Alert and oriented x3. Speech fluent. Follows commands. IMAGING DATA: Chest x-ray revealed improved left pleural effusion and stable atelectasis or pneumonia in the left lower lobe. LABORATORY DATA: ProBNP 646. ASSESSMENT: This is a 63-year-old male with a significant medical history including COPD with ongoing tobacco use, hypertension, peripheral arterial disease, coronary arterial disease, recently diagnosed paroxysmal atrial fibrillation, pericardial effusion , pericarditis, tamponade, diastolic heart failure, hyperlipidemia, gastroesophageal reflux disease, type 2 diabetes mellitus, peripheral neuropathy, iron deficiency anemia, osteoarthritis and multilevel herniated disk disease. He has been admitted since 08/16/2018 with recurrent bilateral pleural effusion, persistent mild pericardial effusion and suspected sepsis with left lower lobe pneumonia. 1. Bilateral pleural effusions improving with diuresis. 2. Left lower lobe pneumonia. 3. Pericarditis. 4. Chronic obstructive pulmonary disease with ongoing tobacco use. PLAN: 1. Continue cefuroxime and doxycycline per Dr. Hinds, the Infectious Disease specialist. 2. Continue oral steroid. 3. Continue physical therapy. 4. Encourage to use incentive spirometer hourly. 5. Provide supplemental oxygen as needed. 6. Follow up with chest x-ray. 7. Dr. Baldwin, the unit leader is on board. 8. We highly recommend patient to quit smoking. The patient has been weaning smoking without medication from 2 packs per day down to half a pack per day. He states he will keep trying, but he does not need any medication at this time. The importance of smoking cessation has been emphasized to patient. 9. Continue GI and DVT prophylaxis. Thank you for the courtesy of this consult. Dictated by SANYA Vang for Inocente Baldwin MD cc: SANYA Vang MD [facility]
[2018-09-12] MEDS: COLACE PO SCH (20:45)
[2018-09-13] MEDS: CARDIZEM PO SCH ×3 (03:02→13:51)
[2018-09-13] MEDS: HUMALOG SUBQ SCH ×6 (06:28→15:55)
[2018-09-13] MEDS: PRILOSEC PO SCH (06:29)
[2018-09-13] MEDS: COLCRYS PO SCH (10:04)
[2018-09-13] MEDS: CEFTIN PO SCH (10:04)
[2018-09-13] MEDS: PREDNISONE PO SCH (10:05)
[2018-09-13] MEDS: LOPRESSOR PO SCH (10:05)
[2018-09-13] MEDS: ELIQUIS PO SCH (10:05)
[2018-09-13] MEDS: ASPIRIN PO SCH (10:06)
[2018-09-13] MEDS: NEURONTIN PO SCH ×2 (10:06→13:51)
[2018-09-13] MEDS: VITAMIN D PO SCH (10:07)
[2018-09-13] MEDS: DOXYCYCLINE PO SCH (10:08)
[2018-09-13] MEDS: BASAGLAR SUBQ SCH (10:08)
[2018-09-13 11:42] VITALS: BP 103/65
--- NOTE | 2018-09-13 13:48 | INFECTIOUS DISEASE PROGRESS NO ---
DATE: 09/13/2018 The patient is being discharged today. He wants to go home rather than to a rehab facility. He is being discharged on Ceftin 500 mg and doxycycline 100 mg, each one given every 12 hours for 2 weeks. The patient will have a followup in our office in 2 weeks, at which time he will be examined and the x-ray will be repeated. cc: Sundeep Hinds MD
--- NOTE | 2018-09-13 19:47 | DISCHARGE SUMMARY ---
ADMISSION DATE: 09/05/2018 DISCHARGE DATE: 09/13/2018 DISCHARGE DIAGNOSES: 1. Sepsis, likely secondary to left lower lobe pneumonia. 2. Left lower lobe pneumonia. 3. Acute hypoxemic respiratory failure due to bilateral pleural effusions, left lower lobe pneumonia. 4. Pericarditis. 5. Bilateral pleural effusion. 6. Atrial fibrillation with rapid ventricular response, resolved. 7. Encephalopathy, resolved. 8. Type 2 diabetes with a hemoglobin A1c of 8.7. 9. History of coronary artery disease. 10. Tobacco abuse. 11. Generalized weakness and physical deconditioning. PROCEDURES PERFORMED: 1. Chest x-ray, dated 09/04/2018, impression: Improved left pleural effusion, atelectasis versus pneumonia at the left lower lobe. 2. Head CT, dated 09/04/2018, impression: Chronic appearing changes. No evidence of acute intracranial pathology. 3. Chest x-ray, dated 09/05/2018, impression: Bilateral pleural effusions and bibasilar atelectasis with the left effusion being slightly larger than the previous study; a slight decrease in pericardial effusion during the interval. 4. Echocardiogram, dated 09/05/2018, impression: Pulmonic valve was normal. There was trace pulmonary regurgitation. Mitral valve was normal. Tricuspid valve was normal. There was a trace of mitral regurgitation. There was no aortic stenosis or aortic regurgitation. There was trace tricuspid regurgitation. There was trace anterior and posterior pericardial effusion. 5. EKG, dated 09/05/2018, impression: Sinus tachycardia with premature supraventricular complexes, nonspecific ST and T-wave abnormality. HOSPITAL COURSE: A 63-year-old male who was recently admitted to our facility and was discharged on 08/29/2017. During that admission, he was found to have pericardial effusion, pericarditis, and cardiac tamponade. He is also status post pericardial window. It looks like he has some diastolic heart failure secondary to his tamponade. Also, during this admission, he was noted to have paroxysmal atrial fibrillation and was discharged with metoprolol and Eliquis for prophylaxis. He was discharged to a rehab center and had been home for a very short amount of time. Apparently, he has been having more weakness, confusion, and fever. He was discharged also with tapering doses of steroids which he has finished. He denied any headache, dizziness, neck pain, or nuchal rigidity. No chest pain, shortness of breath, or cough. No nausea, no vomiting, no diarrhea. Actually, he was complaining of constipation. He also has a diabetic ulcer of his right great toe that was present during his last admission, but it has been okay, not worsened. He has generalized weakness as previously mentioned. Upon initial evaluation in the emergency department, the patient's temperature was 99.9 degrees, heart rate was 121, he was tachypneic, blood pressure was 117/73, oxygen saturation was 95% on a nasal cannula 2 L, sinus tachycardia. Also, it was noted by the emergency room staff that the patient was having some confusion. His white blood cell count was 22,000. Chest x-ray performed in the emergency department showed improved left pleural effusion, atelectasis versus pneumonia in the left lower lobe. CT chest without contrast showed bilateral pleural effusions and bibasilar atelectasis with left effusion being slightly larger than previous study, decrease in pericardial effusion during the interval. No new consolidation identified otherwise. Head CT did not show any acute abnormality. Given this patient's current condition with weakness, confusion, fever, leukocytosis, a lumbar puncture was performed and the fluid was clear. At that time, it was suspicious to have a fever in this patient of unknown origin. This patient has been placed on broad-spectrum antibiotics. We requested blood culture as well as cerebral fluid Gram stain and culture. Flu test has been negative. He was admitted for evaluation in the ICU. We gave him some stool softener since he has not been having bowel movements. Cardiology Department evaluated this patient. They reviewed the echocardiogram. There was a definite pericardial effusion; however, it was not causing a tamponade. There was a thickening of the epicardium as in subacute pericarditis. As per Cardiology Department, they suggested to go with a strong anti-inflammatory regimen. They did not believe that this patient was dealing with an infection process, so we went ahead and put this patient on steroids. Also, of course, we covered this patient with broad spectrum antibiotics like I mentioned before. Infectious Disease department has been consulted, and they discontinued the Zosyn and put this patient on cefepime along with vancomycin. The patient at that time was unable to provide history and no family members were present. We believe that probably this patient has subacute pericarditis, and he responded very well to steroids IV. Also, he has been placed on colchicine 0.6 mg twice a day. Then we switched this patient from IV Solu-Medrol to p.o. prednisone. He was getting around 100 mg per day based on 1 mg/kg a day. The patient was improving on a daily basis. We also believed that this patient had pneumonia. Infectious Disease department treated this patient closely. Because of the history of atrial fibrillation, we put this patient back on Eliquis. It has been suggested to decrease the dose of the steroids to 60 mg per day. I will go ahead and decrease by 10 every week, and have recommended to stop once the prednisone is around 20 mg p.o. daily. He will be followup by Cardiology Department in 4 weeks, so at that time, probably this patient will be taking 30 mg per day. He has been responding very well to the treatment, and I have started to decrease the dose slowly. Infectious Disease department also recommended to discharge this patient with antibiotics, Ceftin 500 mg twice a day and doxycycline 100 mg twice a day for 2 weeks, and follow up with him in 2 weeks. At the moment of discharge, this patient was in a stable medical condition. We were looking for placement in a rehab center for him, but he has decided to go home with home health. He seems to be stable. We will continue with the same management at home, antibiotics as well. PHYSICAL EXAMINATION: Vital Signs: Temperature 97.9 degrees, pulse 80, respiratory rate 17, blood pressure 103/65, oxygen saturation 97% on room air. HEENT: Head normocephalic, no trauma. PERRLA. Neck: Supple. No JVD. No masses. Central trachea. Chest: Clear to auscultation. No wheezing. Some crepitus at the bases. Abdomen: Soft, nontender, and nondistended. No hepatosplenomegaly. Extremities: No edema, no clubbing, no cyanosis. Neurological: The patient was completely alert and oriented x3. No focal deficits, but generalized weakness. LABORATORY: Glucose 280. BNP 459, down from 2006 close to admission. This patient has been told that the dose of insulin will decrease along with the dose of the steroids, and he has been recommended to follow up with his primary doctor to do that. DISCHARGE MEDICATIONS: 1. Tylenol 650 mg p.o. q.6 hours as needed for fever or pain. 2. Eliquis 5 mg p.o. b.i.d. 3. Aspirin 81 mg p.o. daily. 4. Ceftin 500 mg p.o. q.12 hours. 5. Vitamin D 5000 units p.o. daily. 6. Colchicine 0.6 mg p.o. b.i.d. 7. Diltiazem 120 mg p.o. daily. 8. Docusate 200 mg p.o. at bedtime. 9. Doxycycline 100 mg p.o. b.i.d. 10. Gabapentin 400 mg p.o. t.i.d. 11. Insulin glargine 35 units subcutaneously q.a.m. It will decrease along with the dose of the steroids. 12. Lopressor 100 mg p.o. b.i.d. 13. Omeprazole 40 mg p.o. daily. 14. Prednisone 60 mg p.o. daily for 1 week, then decrease by 10 weekly until taking 20 mg p.o. daily. TIME DISCHARGING THIS PATIENT: 50 minutes. cc: Prosper Alexander MD
== END 2018-09-13 16:11 | disposition home health service (06) | DRG 871 ==
LOC: SUPCPDRO → ED 22:36 → SUATTDRO 09-05 03:48 → 3N 09-05 03:48 → ICU 09-05 07:49 → 4N 09-08 14:49
PROVIDERS: ATTEND Internal Medicine
CPT/HCPCS: 36569; 51702; 70450; 71010; 71045; 71250; 80048; 80053; 80202; 81001; 82550; 82805; 82945; 82948; 83036; 83605; 83735; 83880; 84157; 84484; 85025; 85610; 85651; 85730; 86038; 86039; 86140; 86160; 86200; 86431; 86701; 86803; 87040; 87070; 87205; 87275; 87276; 87340; 87389; 87804; 89050; 93005; 93010; 93306; 94761; 94799; 96361; 96365; 96368; 97110; 97162; 97530; 99285; A9270; J0692; J1815; J2543; J2930; J3370; J3475; J7030; J7040; J7050; J7506; J7512; XXXXX

== ENCOUNTER 2018-10-30 16:10 | Inpatient (IN) ==
[2018-10-30] MEDS ORDERED: NS 1,000 ML IV ONE (16:31)
[2018-10-30 16:46] LABS: ALLEN TEST YES; BE 6.6 mmoll (-3.0-3.0); BLOOD TYPE ARTERIAL; HCO3-(ACT) 29.9 mmoll (20.0-26.0); METHB 1.3 % (0.0-1.5); O2(CT) 18.2 mL/dL (15.0-23.0); O2HB 91.9 % (95.0-99.0); PCO2(98.6) 34 mmHg (35-45); PO2(98.6) 65 mmHg (60-100); SAMPLE BLOOD; SAO2 96.3 % (95.0-100.0); THB 14.1 g/dL (11.5-17.4); pH(98.6) 7.54 (7.35-7.45)
[2018-10-30] MEDS ORDERED: LOPRESSOR IV ONE (17:17)
--- NOTE | 2018-10-30 17:24 | PROVIDER DOCUMENTATION ---
HPI-Neurological Disorder - General Chief Complaint: Altered Mental Status Stated Complaint: WEAKNESS/ AMS Time Seen by Provider: 10/30/18 16:12 Source: patient, family Allergies/Adverse Reactions: Patient Allergies Allergy/AdvReac Type Severity Reaction Status Date / Time [id number]-Lxm Reductase AdvReac Unknown Verified 08/23/18 08:37 Inhibitor Home Medications: Home Medication List Medication Instructions Recorded Confirmed Last Taken Type Gabapentin 400 mg PO TID 06/14/18 09/05/18 09/04/18 History Omeprazole 40 mg PO DAILY 06/14/18 09/05/18 09/04/18 History Docusate Sodium [Colace] 200 mg PO QHS capsule 06/20/18 09/05/18 09/04/18 Rx Insulin Lispro [Humalog] See Protocol SUBQ 4XDAY PRN PRN 08/23/18 09/05/18 09/04/18 History Linagliptin [Tradjenta] 5 mg PO DAILY 08/23/18 09/05/18 09/04/18 History Methocarbamol [Robaxin] 500 mg PO DAILY PRN 08/23/18 09/05/18 09/04/18 History Aspirin 81 mg PO DAILY chewtab 08/29/18 09/05/18 09/04/18 Rx Colchicine [Colcrys] 0.6 mg PO BID #60 tab 08/29/18 09/05/18 09/04/18 Rx Metoprolol [Lopressor] 50 mg PO BID #120 tab 08/29/18 09/05/18 09/04/18 Rx Cholecalciferol (Vitamin D3) 5,000 unit PO DAILY 09/05/18 09/05/18 09/04/18 History [Vitamin D3] Acetaminophen [Tylenol] 650 mg PO Q6H PRN PRN tablet 09/13/18 Unknown Rx Apixaban [Eliquis] 5 mg PO BID #60 tab 09/13/18 Unknown Rx CefUROXIME [Ceftin] 500 mg PO Q12HR #56 tab 09/13/18 Unknown Rx Colchicine [Colcrys] 0.6 mg PO BID #30 tab 09/13/18 Unknown Rx Diltiazem HCl [Cardizem Cd] 120 mg PO DAILY #90 cap.er.24h 09/13/18 Unknown Rx Doxycycline 100 mg PO BID #28 tab 09/13/18 Unknown Rx Insulin Glargine [Basaglar] 35 unit SUBQ QAM insuln.pen 09/13/18 Unknown Rx Metoprolol [Lopressor] 100 mg PO BID #120 tab 09/13/18 Unknown Rx Prednisone 60 mg PO DAILY #180 tab.ds.pk 09/13/18 Unknown Rx - History of Present Illness-Neuro Nature of Presenting Problem: reports has generalized weakness yesterday. son report he has asked for help after sitting on the toilet for >1 hr. since then he lies in bed with intermittent ams. son reports has been coughing and decreased urination. decreased appetite. son thinks he has fever. not communicative and not himself. Review of Systems - Adult - REVIEW OF SYSTEMS - ADULT Constitutional: reports: no symptoms reported Eyes: reports: no symptoms reported Ears, Nose, Mouth & Throat: reports: no symptoms reported Cardiovascular: reports: no symptoms reported Respiratory: reports: no symptoms reported Gastrointestinal: reports: no symptoms reported Genitourinary: reports: no symptoms reported Musculoskeletal: reports: no symptoms reported Integumentary: reports: no symptoms reported Neurological: reports: no symptoms reported Psychiatric: reports: no symptoms reported Endocrine: reports: no symptoms reported Hematologic/Lymphatic: reports: no symptoms reported Allergic/Immunologic: reports: no symptoms reported All Other Systems: Reviewed and Negative Past History - Adult - PAST MEDICAL HISTORY-ADULT Review of Records: reports: Old Records Reviewed, Nursing Assessment Review, Medications Reviewed, Social history reviewed & non-contributory. Major Childhood Illnesses: reports: denies history Cardiovascular: reports: A-Fib, HTN, hyperlipidemia Respiratory: reports: sleep apnea Gastrointestinal: reports: denies history Obstetrical/Gynecological: reports: denies history Genitourinary: reports: dialysis Musculoskeletal: reports: denies history Neurological: reports: denies history Endocrine/Immune: reports: Diabetes Other Conditions: reports: denies history - PRIOR SURGERIES/PROCEDURES Surgical/Procedure History: reports: tonsillectomy - IMMUNIZATION STATUS Childhood Immunizations: See Nurse Assessment Flu Vaccine: See Nurse Assessment - FAMILY HISTORY Family History: reviewed, not pertinent - SOCIAL HISTORY Smoking: denies Provider spent 3-5 mins advising pt. on dangers of tobacco.: Discussed manners to quit use, and f/u contacts for add'l counseling. Substance Use: none/never Alcohol Use Frequency: never Living Situation: family Physical Exam- Neurological - Physical Exam-Neuro General Appearance: alert, slow to respond (unable to follow through the) Eye Exam: bilateral eye: normal inspection, PERRL, EOMI HENMT: normocephalic/atraumatic, other (lipoma on the base of neck) Head Injury: no evidence of injury Neck: non-tender, full range of motion Respiratory: chest non-tender, decreased breath sounds Cardiovascular: normal peripheral pulses, tachycardia Abdominal Exam: normal bowel sounds, non tender, other (scar below the xiphoid, from pericardial window) Peripheral Pulses: radial (R): 2+, radial (L): 2+ Extremity: normal range of motion, non-tender, other (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 Exam: normal speech (but slow) Coordination/Gait: other (unable to assess given pt is not follow simple command) Motor/Sensory: no motor deficit Neurologic: grossly normal, no motor/sensory deficits Integumentary: warm/dry (arms and distal legs, scaly and actinic keratosis) Psych/Mental Status: other (unable to assess) Progress - PLAN OF CARE/RESULTS Progress/Plan/Lab Results: Laboratory Results - last 24 hr 10/30/18 10/30/18 10/30/18 16:13 17:15 17:15 WBC 24.92 H RBC 4.65 L Hgb 13.3 L Hct 38.7 L MCV 83.2 MCH 28.6 MCHC 34.4 RDW Std Deviation 16.2 H Plt Count 266 MPV 10.0 Immature Gran % (Auto) 0.7 H Neut % (Auto) 91.4 H Lymph % (Auto) 3.7 L [place] % (Auto) 4.1 Eos % (Auto) 0.0 Baso % (Auto) 0.1 Immature Gran # (Auto) 0.18 H Neut # (Auto) 22.74 H Lymph # (Auto) 0.93 L [place] # (Auto) 1.03 H Eos # (Auto) 0.01 Baso # (Auto) 0.03 PT INR PTT (Actin FS) Specimen Type ARTERIAL Sample Site R RADIAL pH 7.54 H pCO2 34 L pO2 65 HCO3 29.9 H Base Excess 6.6 H Oxyhemoglobin 91.9 L ABG O2 Sat (Calculated) 18.2 ABG O2 Saturation 96.3 ABG Carboxyhemoglobin 3.30 H ABG Methemoglobin 1.3 Nader Test YES A-a O2 Difference 42.0 Total Hemoglobin 14.1 Lactate 0.90 FiO2 % 21.0 Sodium 135 L Potassium 3.8 Chloride 95 L Carbon Dioxide 27 Anion Gap 13 BUN 16 Creatinine 0.5 L Estimated GFR/1.73 m2 > 60 BUN/Creatinine Ratio 32 Glucose 188 H Calculated Osmolality 276 Calcium 9.0 Total Bilirubin 0.76 AST 34 ALT 23 Alkaline Phosphatase 105 Creatine Kinase 2185 H Creatine Kinase Index 0.2 CK-MB (CK-2) 5.06 H Troponin T Total Protein 5.7 L Albumin 3.2 L Globulin 2.5 Albumin/Globulin Ratio 1.3 Plasma Lactate Vitamin D 25-Hydroxy Urine Source Urine Color Urine Turbidity Urine pH Ur Specific Hayden Urine Protein Ur Glucose (Stick) Ur Ketones (Stick) Urine Blood Urine Nitrite Urine Bilirubin Urobilinogen Dipstick Urine Leukocytes Urine WBC (Auto) Urine RBC (Auto) U Epithel Cells (Auto) Urine Bacteria (Auto) 10/30/18 10/30/18 10/30/18 17:15 17:15 17:15 WBC RBC Hgb Hct MCV MCH MCHC RDW Std Deviation Plt Count MPV Immature Gran % (Auto) Neut % (Auto) Lymph % (Auto) [place] % (Auto) Eos % (Auto) Baso % (Auto) Immature Gran # (Auto) Neut # (Auto) Lymph # (Auto) [place] # (Auto) Eos # (Auto) Baso # (Auto) PT 15.9 INR 1.18 PTT (Actin FS) 33.7 Specimen Type Sample Site pH pCO2 pO2 HCO3 Base Excess Oxyhemoglobin ABG O2 Sat (Calculated) ABG O2 Saturation ABG Carboxyhemoglobin ABG Methemoglobin Nader Test A-a O2 Difference Total Hemoglobin Lactate FiO2 % Sodium Potassium Chloride Carbon Dioxide Anion Gap BUN Creatinine Estimated GFR/1.73 m2 BUN/Creatinine Ratio Glucose Calculated Osmolality Calcium Total Bilirubin AST ALT Alkaline Phosphatase Creatine Kinase Creatine Kinase Index CK-MB (CK-2) Troponin T 0.038 Total Protein Albumin Globulin Albumin/Globulin Ratio Plasma Lactate 1.4 Vitamin D 25-Hydroxy Urine Source Urine Color Urine Turbidity Urine pH Ur Specific Hayden Urine Protein Ur Glucose (Stick) Ur Ketones (Stick) Urine Blood Urine Nitrite Urine Bilirubin Urobilinogen Dipstick Urine Leukocytes Urine WBC (Auto) Urine RBC (Auto) U Epithel Cells (Auto) Urine Bacteria (Auto) 10/30/18 10/30/18 17:15 17:15 WBC RBC Hgb Hct MCV MCH MCHC RDW Std Deviation Plt Count MPV Immature Gran % (Auto) Neut % (Auto) Lymph % (Auto) [place] % (Auto) Eos % (Auto) Baso % (Auto) Immature Gran # (Auto) Neut # (Auto) Lymph # (Auto) [place] # (Auto) Eos # (Auto) Baso # (Auto) PT INR PTT (Actin FS) Specimen Type Sample Site pH pCO2 pO2 HCO3 Base Excess Oxyhemoglobin ABG O2 Sat (Calculated) ABG O2 Saturation ABG Carboxyhemoglobin ABG Methemoglobin Nader Test A-a O2 Difference Total Hemoglobin Lactate FiO2 % Sodium Potassium Chloride Carbon Dioxide Anion Gap BUN Creatinine Estimated GFR/1.73 m2 BUN/Creatinine Ratio Glucose Calculated Osmolality Calcium Total Bilirubin AST ALT Alkaline Phosphatase Creatine Kinase Creatine Kinase Index CK-MB (CK-2) Troponin T Total Protein Albumin Globulin Albumin/Globulin Ratio Plasma Lactate Vitamin D 25-Hydroxy 23.6 Urine Source CATH Urine Color YELLOW Urine Turbidity HAZY Urine pH 7.5 Ur Specific Hayden 1.017 Urine Protein 300 A Ur Glucose (Stick) NEGATIVE Ur Ketones (Stick) 40 A Urine Blood LARGE A Urine Nitrite NEGATIVE Urine Bilirubin NEGATIVE Urobilinogen Dipstick 3 A Urine Leukocytes SMALL A Urine WBC (Auto) 20-40 A Urine RBC (Auto) TNTC A U Epithel Cells (Auto) <10 Urine Bacteria (Auto) 3+ Orders Category Date Time Status Admit - [facility] Routine AdmDCTranf 10/30/18 18:29 Active Activity - Strict Bedrest ORDERED Care 10/30/18 18:29 Active Cardiac Monitoring DIRECTED Care 10/30/18 16:13 Active Daily Weights 0500 Care 10/30/18 18:38 Active FALL Precautions NOW Care 10/30/18 18:42 Active FSBS/Accucheck Result AC + HS Care 10/30/18 18:34 Active Finger Stick Blood Sugar (ED) DIRECTED Care 10/30/18 16:13 Active Intake and Output-Strict ORDERED Care 10/30/18 18:29 Active Oxygen Therapy- ED Nursing DIRECTED Care 10/30/18 16:13 Active Saline Loc NOW Care 10/30/18 16:13 Active Vital Signs Order Q 4-HR ASSESS Care 10/30/18 18:29 Active Z-Document. for Tele Applied ORDERED Care 10/30/18 18:29 Active Heart Healthy Diet Diet 10/30/18 18:30 Active CHEST-PORTABLE [RAD] Stat Exams 10/30/18 16:[address] HEAD W/O CONTRAST [CT] Stat Exams 10/30/18 16:14 Completed ABG [RESP] Routine Lab 10/30/18 16:13 Completed ABG [RESP] Routine Lab 10/31/18 05:14 Completed AMMONIA [CHEM] Routine Lab 10/30/18 19:44 Completed BASIC METABOLIC PANEL [CHEM] Lab 10/31/18 09:13 Completed BLOOD CULTURE [BLDCUL] Stat Lab 10/30/18 17:15 Results CBC WITH DIFF [HEME] Lab 10/31/18 09:56 Ordered CBC WITH ELECTRONIC DIFF [HEME] Stat Lab 10/30/18 17:15 Completed CK PROFILE [SP CHEM] Stat Lab 10/30/18 17:15 Completed COMPREHENSIVE METABOLIC PANEL [CHEM] Stat Lab 10/30/18 17:15 Completed Cardiac Profile [CK PROFILE] [SP CHEM] Q6H Lab 10/31/18 01:33 Completed Cardiac Profile [CK PROFILE] [SP CHEM] Q6H Lab 10/31/18 09:13 Completed LACTATE, PLASMA [CHEM] Stat Lab 10/30/18 17:15 Completed PROCALCITONIN [ROMO] Routine Lab 10/30/18 19:44 Received PROTIME WITH INR [COAG] Stat Lab 10/30/18 17:15 Completed PTT [COAG] Stat Lab 10/30/18 17:15 Completed TROPONIN T Q6H Lab 10/31/18 01:33 Completed TROPONIN T Q6H Lab 10/31/18 09:13 Completed TROPONIN T Stat Lab 10/30/18 17:15 Completed URINALYSIS [URINALYSIS] Stat Lab 10/30/18 17:15 Completed URINE CULTURE [RM] Routine Lab 10/30/18 17:15 Results VITAMIN D 25 HYDROXY Routine Lab 10/30/18 17:15 Completed 0.9% Sodium Chloride Inj [Ns] 1,000 ml Med 10/30/18 18:30 Discontinued IV 100 mls/hr 0.9% Sodium Chloride Inj [Ns] 1,000 ml Med 10/30/18 18:30 Discontinued IV 100 mls/hr 0.9% Sodium Chloride Inj [Ns] 1,000 ml Med 10/30/18 16:31 Discontinued IV 999 mls/hr 0.9% Sodium Chloride Inj [Ns] 100 ml Med 10/30/18 18:45 Discontinued Diltiazem [Cardizem] 125 mg IV As Directed mls/hr Acetaminophen [Tylenol] Med 10/30/18 18:29 Active 650 mg PO Q6H PRN PRN Apixaban [Eliquis] Med 10/30/18 21:00 Active 5 mg PO BID CefEPIME [Maxipime] 1 gm Med 10/30/18 18:30 Active 0.9% Sodium Chloride Inj [Ns] 50 ml IV Q12H Insulin Human Regular [Humulin R] Med 10/30/18 21:00 Active See Protocol SUBQ 0700,1100,1600,2100 Metoprolol [Lopressor] Med 10/30/18 21:00 Active 100 mg PO BID Metoprolol [Lopressor] Med 10/30/18 17:17 Discontinued 5 mg IV NOW ONE Ondansetron [Zofran] Med 10/30/18 18:29 Active 4 mg IV Q4H PRN PRN Pantoprazole [Protonix] Med 10/31/18 07:00 Active 40 mg IV Q24H Sodium Chloride 0.9% Med 10/30/18 18:45 Active 10 ml INJ DIRECTED Vancomycin 1 gm/Ns Med 10/30/18 18:05 Discontinued 1 gm in 250 ml IV NOW Altered Mental Status Stat Oth 10/30/18 16:13 Completed Oxygen Device Routine Oth 10/30/18 18:29 Completed Pulse Oximetry Routine Oth 10/30/18 18:29 Completed Telemetry [OM.EQ] Routine Oth 10/30/18 18:29 Active EKG [EKG] Routine Ther 10/31/18 08:00 Completed EKG [EKG] Stat Ther 10/30/18 16:13 Draft Transfer/Admit Order [TRANSFER] Routine Transfer 10/30/18 18:32 Completed Result Diagrams: 10/30/18 17:15 10/31/18 09:13 Departure - Departure Date of Disposition Decision: 10/31/18 Time of Disposition Decision: 12:12 DIAGNOSIS: Altered mental status, Sepsis, Afib Disposition: ADMITTED INPATIENT 09 Certified Medical Emergency: Emergent Condition: Fair - Critical Care Note This patient required my direct & personal management of CC.: Yes Attestation - Physician/ POLLO Attestation The physician spent face to face time with patient:: Yes Advanced Practice Provider documentation review:: Supervising physician onsite and consulted in the evaluation and care of this patient. The physician did have a face to face encounter with the patient.
[2018-10-30 17:37] LABS: URINE SOURCE CATH
[2018-10-30 17:41] LABS: BILIRUBIN URINE NEGATIVE (NEGATIVE); BLOOD URINE LARGE (NEGATIVE); COLOR YELLOW; GLUCOSE URINE NEGATIVE (NEGATIVE); KETONE URINE 40 mg/dL (NEGATIVE); LEUKOCYTES URINE SMALL (NEGATIVE); NITRITE URINE NEGATIVE (NEGATIVE); PH URINE 7.5; PROTEIN URINE 300 mg/dL (NEGATIVE); SP GRAVITY URINE 1.017; TURBIDITY URINE HAZY (CLEAR); UROBILINOGEN URINE 3 mg/dL (NORMAL)
[2018-10-30 17:42] LABS: UR EPITHELIAL CELLS <10 /HPF (<10); URINE BACTERIA 3+ /HPF; URINE RBC TNTC /HPF (<10); URINE WBC 20-40 /HPF (<10)
[2018-10-30 17:52] LABS: BASO# 0.03 X1000 (0.0-0.2); BASO% 0.1 % (0.0-0.8); EOS# 0.01 X1000 (0.0-0.7); HEMATOCRIT 38.7 % (42.0-52.0); HEMOGLOBIN 13.3 g/dL (14.0-18.0); IMM GRAN# 0.18 X1000 (0.0-0.04); IMM GRAN% 0.7 % (0.0-0.5); LYMPH# 0.93 X1000 (1.2-3.4); LYMPH% 3.7 % (20.5-51.1); MCH 28.6 PG (27-31); MCHC 34.4 g/dL (33-37); MCV 83.2 FL (81-99); MONO# 1.03 X1000 (0.11-0.59); MONO% 4.1 % (1.7-9.3); NEUT# 22.74 X1000 (1.4-6.5); NEUT% 91.4 % (42.2-75.2); PLT 266 X1000 (130-400); RBC 4.65 XMIL (4.7-6.1); RDW 16.2 % (11.5-14.5); WBC 24.92 X1000 (4.8-10.8)
--- NOTE | 2018-10-30 17:54 | Diag Imaging Result Doc PS360 ---
CT HEAD W/O CONTRAST - 10/30/2018 INDICATION: Head injury COMPARISON: 09/05/2018 FINDINGS: The ventricles and sulci are normal in size and contour. No intracranial mass or hemorrhage. The skull is intact. The sinuses mastoids and middle ears are clear. IMPRESSION: Negative exam. This exam was performed using automated exposure control, adjustment of mA or kV according to patient size, and/or use of iterative reconstruction technique Electronically signed by Gordon Siddiqui 10/30/2018 5:51 PM
--- NOTE | 2018-10-30 17:56 | Diag Imaging Result Doc PS360 ---
CHEST-PORTABLE - 10/30/2018 INDICATION: ams COMPARISON: 09/27/2018 FINDINGS: The lungs are normally expanded and clear. Heart size and mediastinal contours are normal. No pneumothorax or pleural effusion. IMPRESSION: Negative exam. Electronically signed by Gordon Siddiqui 10/30/2018 5:53 PM
[2018-10-30 17:58] LABS: INR 1.18; PROTIME 15.9 Seconds (11.0-16.0)
[2018-10-30 17:59] LABS: PTT 33.7 Seconds (22.3-41.8)
[2018-10-30] MEDS ORDERED: VANCOMYCIN 1 GM/NS 1 GM/250 ML IVPB IV ONE (18:05)
[2018-10-30 18:11] LABS: AGAP 13; ALB/GLOB RATIO 1.3; ALBUMIN 3.2 g/dL (3.5-5.0); ALKALINE PHOSPHATASE 105 U/L (32-122); BUN 16 mg/dL (8-22); CHLORIDE 95 mmol/L (98-107); COSMO 276; CREATININE 0.5 mg/dL (0.7-1.2); ESTIMATED GFR > 60; GLUCOSE 188 mg/dL (70-104); GOT 34 U/L (10-34); GPT 23 U/L (10-44); POTASSIUM 3.8 mmol/L (3.5-5.1); SODIUM 135 mmol/L (136-145); TCO2 27 mmol/L (25-35); TOTAL BILIRUBIN 0.76 mg/dL (0.20-1.00); TOTAL PROTEIN 5.7 g/dL (6.3-8.3)
[2018-10-30 18:16] LABS: CK PROFILE 2185 U/L (24-204)
[2018-10-30] MEDS ORDERED: ZOFRAN IV PRN (18:29)
[2018-10-30] MEDS ORDERED: NS 1,000 ML IV SCH (18:30)
[2018-10-30 18:32] LABS: CK INDEX 0.2 (0.0-2.5); CK-MB 5.06 ng/mL (0.0-5.0)
[2018-10-30] MEDS ORDERED: CARDIZEM 125 MG in NS 100 ML IV SCH (18:45)
[2018-10-30] MEDS: MAXIPIME 1 GM in NS 50 ML IV SCH (18:46)
[2018-10-30] MEDS: NS 1,000 ML IV SCH (18:46)
[2018-10-30] MEDS ORDERED: NS NEB INH SCH (20:00)
--- NOTE | 2018-10-30 20:43 | HISTORY AND PHYSICAL ---
The patient's primary care provider is Dr. Moody. CHIEF COMPLAINT: Confusion at home as per the son. HISTORY OF PRESENT ILLNESS: Mr. Cifuentes is a 63-year-old male with a history of chronic atrial fibrillation, diabetes mellitus type 2 history of pericardial effusion status post pericardial window, COPD and tobacco dependence who was brought to the ER by family after the patient was noted to be lethargic and not eating well home. According to the nursing report the patient's son brought the patient in because the patient was not eating and was confused . At the time of this interview there is no family available at the bedside to provide additional information. The patient can barely answer questions did not know where he was . The patient was recently discharge from [facility] on 09/14/2018 after admitted for pneumonia as well as atrial fibrillation with RVR . In the ER the patient was noted to be in atrial fibrillation with RVR and have a leukocytosis of 24,000 and a urinary tract infection. PAST MEDICAL HISTORY: 1. Paroxysmal atrial fibrillation . 2. Diabetes mellitus type 2. 3. Peripheral arterial disease. 4. Hypertension. 5. Nicotine dependence. 6. COPD. 7. History of pericardial effusion . 8. Pericarditis. 9. Cardiac tamponade. PAST SURGICAL HISTORY: 1. Bilateral hip repair. 2. Pericardial window. 3. Carpal tunnel surgery . 4. Tonsillectomy. 5. Hand surgery. 6. Sinus surgery. 7. Right shoulder surgery. FAMILY HISTORY: Reviewed noncontributory due to age. SOCIAL HISTORY: The patient currently lives at home with his son. The patient smokes anywhere from 1-1/2 to 2 packs cigarettes a day. ALLERGIES: Statins. HOME MEDICATIONS: 1. Tylenol 650 mg p.o. every 6 hours p.r.n. for fever. 2. Eliquis 5 mg p.o. twice a day . 3. Aspirin 81 mg p.o. daily. 4. Vitamin D 5000 units oral daily. 5. Colchicine 0.6 mg oral twice a day. 6. Cardizem 120 mg p.o. daily. 7. Gabapentin 400 mg p.o. 3 times a day . 8. Glargine 35 units subcutaneous q.a.m. 9. Lopressor 100 mg p.o. twice a day . 10. Omeprazole 40 mg p.o. daily. REVIEW OF SYSTEMS: Unable to obtain due the patient's altered mental status. PHYSICAL EXAMINATION: VITAL SIGNS: Temperature 99.8 degrees, blood pressure 110/78, heart rate 125, respiratory rate 27, O2 saturation 97% on 2 L nasal cannula. GENERAL: This is a disheveled chronically ill-appearing elderly male lying in bed in no acute distress. SKIN: Poor skin turgor, excoriations are noted on the patient's lower extremities. HEAD: Normocephalic, atraumatic. HEART: S1, S2 normal, irregularly irregular rate and rhythm. LUNGS: Equal air entry bilaterally. No crackles, no rales. ABDOMEN: Positive bowel sounds. Soft, nontender, nondistended. EXTREMITIES: No edema, no cyanosis, no calf tenderness. NEURO: The patient is lethargic. He is able to move all 4 extremities. He does respond to painful stimuli. LABS: White blood cell count 24, hemoglobin 13, hematocrit 38, platelets 266,000, INR 1.1, sodium 135, potassium 3.8, chloride 95, CO2 27, BUN 16, creatinine 0.5, glucose 188, AST 34, ALT 23, alkaline phosphatase 105, CK 2185, troponin 0.03. UA 3+ bacteria, large blood, small leukocyte. Head CT shows no acute intracranial abnormality. Chest x-ray shows negative exam. ASSESSMENT AND PLAN: 1. Metabolic encephalopathy. The patient appears to have an infection and he is also dehydrated. Blood cultures and urine culture have been obtained. The patient has been started on antibiotic therapy. Will monitor the patient's mental status closely. 2. Urinary tract infection. A urine culture has been obtained. The patient will be started on antibiotic therapy . 3. Rhabdomyolysis. Will start the patient on IV fluid hydration and monitor the CPK closely. 4. Atrial fibrillation with rapid ventricular response. The patient is normally on Cardizem CD and Lopressor at home. In the meantime will start the patient on Cardizem drip and restart the oral medications once the patient is more alert. 5. Leukocytosis likely secondary to the patient's underlying urinary tract infection. Empiric antibiotic therapy has been started. 6. Diabetes mellitus type 2. Will start the patient on sliding scale insulin at this time and monitor Accu-Cheks before meals and at bedtime. 7. History of gout. Aware. 8. History of pericardial effusion status post pericardial window. Aware . 9. Gastroesophageal reflux disease. Will start the patient on Protonix. 10. Chronic obstructive pulmonary disease. Will start the patient on bronchodilator therapy and supplemental oxygen. 11. Tobacco dependence. Aware. cc: Kristie Dawson MD MTDD
[2018-10-30] MEDS: HUMULIN R SUBQ SCH (21:00)
[2018-10-30] MEDS: XOPENEX NEB INH SCH (22:00)
[2018-10-30] MEDS: ELIQUIS PO SCH (23:00)
[2018-10-31] MEDS: LOPRESSOR PO SCH ×3 (02:22→21:40)
[2018-10-31 03:11] LABS: CK INDEX 0.3 (0.0-2.5); CK-MB 5.12 ng/mL (0.0-5.0)
[2018-10-31] MEDS: XOPENEX NEB INH SCH ×4 (04:00→21:54)
[2018-10-31 05:23] LABS: ALLEN TEST YES; BLOOD TYPE ARTERIAL; HCO3-(ACT) 27.2 mmoll (20.0-26.0); METHB 1.3 % (0.0-1.5); O2(CT) 16.5 mL/dL (15.0-23.0); O2HB 93.1 % (95.0-99.0); PCO2(98.6) 39 mmHg (35-45); PO2(98.6) 73 mmHg (60-100); SAMPLE BLOOD; SAO2 96.4 % (95.0-100.0); THB 12.6 g/dL (11.5-17.4); pH(98.6) 7.45 (7.35-7.45)
[2018-10-31 05:24] LABS: MODALITY CANNULA
[2018-10-31] MEDS: NS 1,000 ML IV SCH ×2 (06:28→14:39)
[2018-10-31] MEDS: MAXIPIME 1 GM in NS 50 ML IV SCH ×2 (06:30→18:42)
[2018-10-31] MEDS: PROTONIX IV SCH (07:00)
[2018-10-31] MEDS: HUMULIN R SUBQ SCH ×4 (07:00→20:47)
--- NOTE | 2018-10-31 07:16 | EKG Report ---
Test Performed on : 10/31/2018 07:11:44 AM Test Reason : afib Blood Pressure : / mmHG Vent. Rate : 104 BPM Atrial Rate : 104 BPM P-R Int : 158 ms QRS Dur : 086 ms QT Int : 332 ms P-R-T Axes : 021 -17 077 degrees QTc Int : 436 ms Sinus tachycardia. with premature atrial complexes. Inferior infarct (cited on or before 19-OCT-2018) Abnormal ECG When compared with ECG of 30-OCT-2018 17:04, (Unconfirmed) No significant change was found Confirmed by Yusef BLUNT, Davis ([id number]) on 10/31/2018 9:02:22 AM
[2018-10-31] MEDS ORDERED: NS 1,000 ML IV SCH (07:43)
--- NOTE | 2018-10-31 08:24 | EKG Report ---
Test Performed on : 10/30/2018 5:04:51 PM Test Reason : ams Blood Pressure : / mmHG Vent. Rate : 135 BPM Atrial Rate : 135 BPM P-R Int : 142 ms QRS Dur : 084 ms QT Int : 376 ms P-R-T Axes : 043 -14 056 degrees QTc Int : 564 ms Sinus tachycardia. with premature atrial complexes. Possible Left atrial enlargement Possible Inferior infarct , age undetermined Abnormal ECG When compared with ECG of 19-OCT-2018 18:18, (Unconfirmed) premature atrial complexes. are now present Borderline criteria for Inferior infarct are now present T wave inversion no longer evident in Lateral leads Unconfirmed Result
[2018-10-31 10:52] LABS: CK INDEX 0.4 (0.0-2.5); CK-MB 3.82 ng/mL (0.0-5.0)
[2018-10-31 10:54] LABS: AGAP 12; BUN 11 mg/dL (8-22); CALCIUM 8.8 mg/dL (8.8-10.2); CHLORIDE 100 mmol/L (98-107); COSMO 272; CREATININE 0.5 mg/dL (0.7-1.2); ESTIMATED GFR > 60; GLUCOSE 137 mg/dL (70-104); POTASSIUM 3.6 mmol/L (3.5-5.1); SODIUM 135 mmol/L (136-145); TCO2 23 mmol/L (25-35)
[2018-10-31] MEDS: CARDIZEM CD PO SCH (11:00)
[2018-10-31 13:12] LABS: BASO# 0.01 X1000 (0.0-0.2); BASO% 0.1 % (0.0-0.8); EOS# 0.03 X1000 (0.0-0.7); EOS% 0.2 % (0.0-10.0); HEMOGLOBIN 12.3 g/dL (14.0-18.0); IMM GRAN# 0.13 X1000 (0.0-0.04); IMM GRAN% 0.7 % (0.0-0.5); LYMPH# 0.84 X1000 (1.2-3.4); LYMPH% 4.8 % (20.5-51.1); MCH 28.5 PG (27-31); MCHC 34.2 g/dL (33-37); MCV 83.3 FL (81-99); MONO# 0.88 X1000 (0.11-0.59); MONO% 5.1 % (1.7-9.3); MPV 9.6 FL (7.4-10.4); NEUT# 15.49 X1000 (1.4-6.5); NEUT% 89.1 % (42.2-75.2); PLT 218 X1000 (130-400); RBC 4.32 XMIL (4.7-6.1); RDW 16.1 % (11.5-14.5); WBC 17.38 X1000 (4.8-10.8)
[2018-10-31 13:15] LABS: BANDS 4 % (0-1); LYMPHS 6 % (21-51); SEGS 90 % (42-75)
[2018-10-31] MEDS: ELIQUIS PO SCH ×2 (13:24→21:37)
--- NOTE | 2018-10-31 15:41 | Diag Imaging Result Doc PS360 ---
EXAM: CHEST-1 VIEW 10/31/2018 HISTORY: sepsis protocol initiation TECHNIQUE: AP portable at 1530 COMMENT: The inspiration is better than on 10/30/2018. Otherwise compared to the previous study there has been no significant change. There are multiple old rib fractures in the anterior right ribs. IMPRESSION: No evidence of acute disease. Electronically signed by Yoni Marques 10/31/2018 3:39 PM
[2018-10-31 16:33] LABS: INR 1.17; PROTIME 15.8 Seconds (11.0-16.0)
[2018-10-31 16:34] LABS: PTT 32.5 Seconds (22.3-41.8)
[2018-10-31] MEDS: TYLENOL PO PRN (16:41)
[2018-10-31 16:45] LABS: BASO# 0.02 X1000 (0.0-0.2); BASO% 0.1 % (0.0-0.8); EOS# 0.11 X1000 (0.0-0.7); EOS% 0.7 % (0.0-10.0); HEMATOCRIT 37.2 % (42.0-52.0); HEMOGLOBIN 12.7 g/dL (14.0-18.0); IMM GRAN# 0.08 X1000 (0.0-0.04); IMM GRAN% 0.5 % (0.0-0.5); LYMPH# 1.08 X1000 (1.2-3.4); LYMPH% 6.9 % (20.5-51.1); MCH 28.5 PG (27-31); MCHC 34.1 g/dL (33-37); MCV 83.6 FL (81-99); MONO% 5.1 % (1.7-9.3); MPV 9.9 FL (7.4-10.4); NEUT# 13.58 X1000 (1.4-6.5); NEUT% 86.7 % (42.2-75.2); PLT 215 X1000 (130-400); RBC 4.45 XMIL (4.7-6.1); RDW 16.1 % (11.5-14.5); WBC 15.67 X1000 (4.8-10.8)
[2018-10-31 17:05] LABS: BANDS 2 % (0-1); LYMPHS 5 % (21-51); MONO 4 % (1-9); SEGS 87 % (42-75)
[2018-10-31 17:09] LABS: ALKALINE PHOSPHATASE 95 U/L (32-122); BUN 10 mg/dL (8-22); CALCIUM 8.8 mg/dL (8.8-10.2); CREATININE 0.5 mg/dL (0.7-1.2); ESTIMATED GFR > 60; GOT 21 U/L (10-34); GPT 19 U/L (10-44); TOTAL BILIRUBIN 0.63 mg/dL (0.20-1.00); TOTAL PROTEIN 5.5 g/dL (6.3-8.3)
[2018-10-31] MEDS ORDERED: CALMOSEPTINE OINTMENT TOP PRN (17:19)
[2018-10-31 17:22] LABS: CK PROFILE 904 U/L (24-204)
[2018-10-31 17:36] LABS: ALBUMIN 2.9 g/dL (3.5-5.0); CHLORIDE 100 mmol/L (98-107); POTASSIUM 3.7 mmol/L (3.5-5.1); SODIUM 136 mmol/L (136-145)
[2018-10-31 17:41] LABS: CK INDEX 0.5 (0.0-2.5); CK-MB 4.13 ng/mL (0.0-5.0)
[2018-10-31 17:46] LABS: AGAP 15; COSMO 272; GLUCOSE 124 mg/dL (70-104); TCO2 21 mmol/L (25-35)
[2018-10-31 17:47] LABS: ALB/GLOB RATIO 1.1
--- NOTE | 2018-10-31 19:14 | PROGRESS NOTE ---
DATE: 10/31/2018 SUBJECTIVE: The patient is resting comfortably. He is still confused. OBJECTIVE: Vital Signs: Temperature 98.9 degrees, blood pressure 124/64, heart rate 103, respirations 16, O2 saturation 97% on 3 L nasal cannula. General: This is a chronically ill- appearing elderly male lying in bed in no acute distress. Heart: S1, S2 normal. Tachycardic. Lungs: Equal air entry bilaterally. No crackles. No rales. Abdomen: Positive bowel sounds. Soft, obese, nontender, nondistended. Extremities: No edema. No cyanosis. No calf tenderness. Neurologic: The patient is awake and oriented to self. He is able to move all 4 extremities. LABORATORY DATA: White blood cell count 15, hemoglobin 12, hematocrit 37, platelets 215,000. Sodium 130, potassium 3.7, chloride 100, CO2 21, BUN 10, creatinine 0.5, glucose 124, calcium 8.8. ASSESSMENT AND PLAN: 1. Metabolic encephalopathy. Unchanged. Continue to treat the underlying infection. 2. Urinary tract infection. The urine culture is growing gram-negative rods. Continue with the current antibiotic regimen. 3. Rhabdomyolysis, improved. Continue with IV fluids. We will monitor the CPK closely. 4. Atrial fibrillation. Continue on Cardizem CD, Lopressor and Eliquis. 5. Leukocytosis. Improved. Continue with antibiotic therapy. 6. Diabetes mellitus type 2. Continue on sliding scale insulin. 7. Chronic obstructive pulmonary disease. Continue with bronchodilator therapy and supplemental oxygen. 8. Tobacco dependence. Aware. 9. History of gout. Aware. cc: Kristie Dawson MD
[2018-11-01] MEDS: XOPENEX NEB INH SCH ×4 (03:32→22:08)
[2018-11-01] MEDS: NS 1,000 ML IV SCH ×2 (05:21→20:10)
[2018-11-01] MEDS: PROTONIX IV SCH ×2 (05:21→06:40)
[2018-11-01] MEDS: MAXIPIME 1 GM in NS 50 ML IV SCH ×4 (05:21→19:57)
[2018-11-01] MEDS: SODIUM CHLORIDE 0.9% INJ SCH (05:21)
[2018-11-01] MEDS: HUMULIN R SUBQ SCH ×4 (06:47→22:02)
[2018-11-01 07:10] LABS: BASO# 0.02 X1000 (0.0-0.2); BASO% 0.2 % (0.0-0.8); EOS# 0.04 X1000 (0.0-0.7); EOS% 0.4 % (0.0-10.0); HEMATOCRIT 34.7 % (42.0-52.0); HEMOGLOBIN 11.8 g/dL (14.0-18.0); IMM GRAN# 0.08 X1000 (0.0-0.04); IMM GRAN% 0.8 % (0.0-0.5); LYMPH% 8.1 % (20.5-51.1); MCH 29.1 PG (27-31); MCV 85.5 FL (81-99); MONO# 0.73 X1000 (0.11-0.59); MONO% 7.4 % (1.7-9.3); MPV 9.9 FL (7.4-10.4); NEUT# 8.21 X1000 (1.4-6.5); NEUT% 83.1 % (42.2-75.2); PLT 205 X1000 (130-400); RBC 4.06 XMIL (4.7-6.1); WBC 9.88 X1000 (4.8-10.8)
[2018-11-01 07:27] LABS: AGAP 8; BUN 11 mg/dL (8-22); CALCIUM 8.4 mg/dL (8.8-10.2); CHLORIDE 102 mmol/L (98-107); CK TOTAL 485 U/L (24-204); COSMO 273; CREATININE 0.4 mg/dL (0.7-1.2); ESTIMATED GFR > 60; GLUCOSE 123 mg/dL (70-104); POTASSIUM 3.4 mmol/L (3.5-5.1); SODIUM 136 mmol/L (136-145); TCO2 26 mmol/L (25-35)
[2018-11-01] MEDS: CARDIZEM CD PO SCH (08:59)
[2018-11-01] MEDS: LOPRESSOR PO SCH ×2 (08:59→21:59)
[2018-11-01] MEDS: ELIQUIS PO SCH ×2 (08:59→21:59)
[2018-11-01] MEDS: TYLENOL PO PRN ×2 (13:49→21:59)
[2018-11-01] MEDS ORDERED: ROBAXIN PO PRN (22:18)
--- NOTE | 2018-11-01 22:40 | PROGRESS NOTE ---
DATE: 11/01/2018 SUBJECTIVE: Patient has no major complaints. Still very weak overall, though. OBJECTIVE: VITAL SIGNS: Blood pressure 136/72, heart rate 114, respiratory rate 20, temperature 98 degrees, T-max 99.8 degrees. Cardiovascular: Regular rate and rhythm. Pulmonary: Occasional rhonchi, wheezing. Gastrointestinal: Soft, nontender, nondistended. Extremities: Legs were crenated. There was no edema. LABORATORY DATA: White count 9.8, H and H 11 and 34, platelets of 205,000. Potassium 3.4. CPK 485. PROBLEM LIST: 1. Metabolic encephalopathy. Overall has improved I feel like. We will continue to monitor. Escherichia coli positive for Klebsiella pneumoniae which is sensitive to everything except ampicillin and products. Extended spectrum beta-lactamase negative. 2. Rhabdomyolysis. We will continue gentle hydration. We will follow. 3. Type 2 diabetes. Continue sliding scale and follow. 4. Chronic obstructive pulmonary disease. We will continue treatments and monitor. 5. Disposition. The patient would like to go home and not rehab. We will accommodate as is possible, depending on his strength training. cc: Wali Moore MD
[2018-11-02] MEDS: XOPENEX NEB INH SCH ×4 (04:05→21:12)
[2018-11-02] MEDS: SODIUM CHLORIDE 0.9% INJ SCH (06:03)
[2018-11-02] MEDS: PROTONIX IV SCH (06:03)
[2018-11-02] MEDS: MAXIPIME 1 GM in NS 50 ML IV SCH ×2 (06:03→17:54)
[2018-11-02] MEDS: HUMULIN R SUBQ SCH ×4 (06:55→22:01)
[2018-11-02 06:57] LABS: BASO# 0.02 X1000 (0.0-0.2); BASO% 0.2 % (0.0-0.8); EOS# 0.06 X1000 (0.0-0.7); EOS% 0.7 % (0.0-10.0); HEMATOCRIT 35.2 % (42.0-52.0); HEMOGLOBIN 11.8 g/dL (14.0-18.0); IMM GRAN# 0.05 X1000 (0.0-0.04); IMM GRAN% 0.6 % (0.0-0.5); LYMPH# 0.78 X1000 (1.2-3.4); LYMPH% 9.4 % (20.5-51.1); MCH 28.3 PG (27-31); MCHC 33.5 g/dL (33-37); MCV 84.4 FL (81-99); MONO# 0.82 X1000 (0.11-0.59); MONO% 9.9 % (1.7-9.3); NEUT# 6.59 X1000 (1.4-6.5); NEUT% 79.2 % (42.2-75.2); PLT 218 X1000 (130-400); RBC 4.17 XMIL (4.7-6.1); RDW 15.7 % (11.5-14.5); WBC 8.32 X1000 (4.8-10.8)
[2018-11-02] MEDS ORDERED: PRILOSEC PO SCH (07:00)
[2018-11-02 07:11] LABS: AGAP 13; BUN 7 mg/dL (8-22); CALCIUM 8.3 mg/dL (8.8-10.2); CHLORIDE 102 mmol/L (98-107); COSMO 281; CREATININE 0.5 mg/dL (0.7-1.2); ESTIMATED GFR > 60; GLUCOSE 172 mg/dL (70-104); POTASSIUM 3.6 mmol/L (3.5-5.1); SODIUM 140 mmol/L (136-145); TCO2 25 mmol/L (25-35)
[2018-11-02] MEDS: NS 1,000 ML IV SCH ×2 (08:54→21:59)
[2018-11-02] MEDS: COLCRYS PO SCH ×2 (08:56→22:01)
[2018-11-02] MEDS: ELIQUIS PO SCH ×2 (08:56→22:01)
[2018-11-02] MEDS: VITAMIN D PO SCH (08:56)
[2018-11-02] MEDS: CARDIZEM CD PO SCH (08:56)
[2018-11-02] MEDS: LOPRESSOR PO SCH ×2 (08:56→22:01)
[2018-11-02] MEDS: ASPIRIN PO SCH (08:56)
[2018-11-02] MEDS: TRADJENTA PO SCH (08:56)
[2018-11-02] MEDS: NEURONTIN PO SCH ×3 (08:56→17:54)
[2018-11-02] MEDS ORDERED: LOPRESSOR PO SCH (09:00)
[2018-11-02] MEDS ORDERED: ELIQUIS PO SCH (09:00)
[2018-11-02] MEDS ORDERED: CARDIZEM CD PO SCH (09:00)
[2018-11-02] MEDS ORDERED: LANTUS INSULIN SUBQ ONE (23:29)
--- NOTE | 2018-11-03 00:01 | PROGRESS NOTE ---
DATE: 11/02/2018 SUBJECTIVE: The patient has no major complaints, except weakness. Overall, he seems improved. OBJECTIVE: Vital signs: Blood pressure 149/84, heart rate 101, temperature 98.1, respiratory rate 20 Cardiovascular: Regular rate and rhythm. Pulmonary: Bilateral breath sounds, clear to auscultation. Gastrointestinal: Soft, nontender, nondistended. Bowel sounds are positive. LABORATORY DATA: White count 8, hemoglobin and hematocrit 11 and 35, platelets 218. Electrolytes looks stable. Blood sugar 215. PROBLEM LIST: 1. Metabolic encephalopathy. Overall seems improved or close to baseline. 2. Klebsiella pneumoniae urinary tract infection. He is currently on cefepime and it is controlled. 3. Rhabdomyolysis. We will continue IV fluids and follow. Creatinine is stable. 4. Type 2 diabetes. Continue sliding scale insulin. Blood sugars are not under complete control. He is typically on Lantus, although not confirmed at 35 units a day, which we will resume medications and follow. 5. Overall, we will continue to monitor closely. DISPOSITION: He needs to be stabilized on medications and then we will decide about discharge options, which include rehab, and follow closely. cc: Wali Moore MD
[2018-11-03] MEDS: XOPENEX NEB INH SCH ×4 (03:32→22:41)
[2018-11-03] MEDS: PRILOSEC PO SCH (06:11)
[2018-11-03] MEDS: MAXIPIME 1 GM in NS 50 ML IV SCH ×2 (06:12→18:06)
[2018-11-03] MEDS: HUMULIN R SUBQ SCH ×4 (06:48→23:12)
--- NOTE | 2018-11-03 07:29 | EKG Report ---
Test Performed on : 11/03/2018 04:26:36 AM Test Reason : Tachycardia Blood Pressure : / mmHG Vent. Rate : 129 BPM Atrial Rate : 129 BPM P-R Int : 146 ms QRS Dur : 092 ms QT Int : 290 ms P-R-T Axes : 030 033 039 degrees QTc Int : 424 ms Sinus tachycardia. Possible Left atrial enlargement Anterior infarct , age undetermined Abnormal ECG When compared with ECG of 31-OCT-2018 07:11, premature atrial complexes. are no longer present Anterior infarct is now present Criteria for Inferior infarct are no longer present Confirmed by Yusef BLUNT, Davis ([id number]) on 11/03/2018 8:47:44 AM
[2018-11-03 07:39] LABS: AGAP 12; BUN 9 mg/dL (8-22); CALCIUM 8.3 mg/dL (8.8-10.2); CHLORIDE 99 mmol/L (98-107); COSMO 273; CREATININE 0.6 mg/dL (0.7-1.2); ESTIMATED GFR > 60; GLUCOSE 216 mg/dL (70-104); HEMATOCRIT 35.1 % (42.0-52.0); HEMOGLOBIN 11.7 g/dL (14.0-18.0); MCH 28.7 PG (27-31); MCHC 33.3 g/dL (33-37); MCV 86.2 FL (81-99); MPV 9.9 FL (7.4-10.4); POTASSIUM 3.8 mmol/L (3.5-5.1); RBC 4.07 XMIL (4.7-6.1); RDW 16.1 % (11.5-14.5); SODIUM 134 mmol/L (136-145); TCO2 23 mmol/L (25-35); WBC 11.68 X1000 (4.8-10.8)
[2018-11-03] MEDS: CARDIZEM CD PO SCH (09:31)
[2018-11-03] MEDS: NEURONTIN PO SCH ×3 (09:31→23:06)
[2018-11-03] MEDS: COLCRYS PO SCH ×2 (09:32→23:07)
[2018-11-03] MEDS: TRADJENTA PO SCH (09:32)
[2018-11-03] MEDS: ELIQUIS PO SCH ×2 (09:32→23:07)
[2018-11-03] MEDS: VITAMIN D PO SCH (09:32)
[2018-11-03] MEDS: LOPRESSOR PO SCH ×2 (09:32→23:07)
[2018-11-03] MEDS: ASPIRIN PO SCH (09:32)
--- NOTE | 2018-11-03 10:04 | EKG Report ---
Test Performed on : 11/03/2018 09:56:48 AM Test Reason : afib/ aflutter Blood Pressure : / mmHG Vent. Rate : 146 BPM Atrial Rate : 375 BPM P-R Int : 000 ms QRS Dur : 080 ms QT Int : 258 ms P-R-T Axes : 000 -16 111 degrees QTc Int : 402 ms Atrial fibrillation. with rapid ventricular response. Inferior infarct , age undetermined Abnormal ECG When compared with ECG of 03-NOV-2018 04:26, Atrial fibrillation. has replaced Sinus rhythm. Criteria for Anterior infarct are no longer present Inferior infarct is now present Confirmed by Yusef BLUNT, Davis ([id number]) on 11/04/2018 8:38:31 AM
[2018-11-03] MEDS ORDERED: CARDIZEM IV ONE (10:14)
[2018-11-03] MEDS ORDERED: LANOXIN IV SCH (11:00)
--- NOTE | 2018-11-03 14:31 | CARDIOLOGY CONSULTATION ---
DATE: 11/03/2018 CHIEF COMPLAINT: Apparently confusion. HISTORY OF PRESENT ILLNESS: Mr. Cifuentes is a 63-year-old gentleman with a history of paroxysmal atrial fibrillation, diabetes and a previous pericardial effusion earlier this year treated with a pericardial window. He presented for evaluation of general confusion and not eating. Later on in the hospitalization the patient developed a recurrence of his atrial fibrillation. He denied any overt palpitations or chest pain. He reports tolerating oral intake. He is not having any current chest pain. PAST MEDICAL HISTORY: 1. Significant for paroxysmal atrial fibrillation, maintained on Eliquis. 2. Diabetes. 3. Peripheral arterial disease. 4. Hypertension. SOCIAL HISTORY: He lives at home with his son. He smokes 1-1/2 to 2 packs per day. FAMILY HISTORY: Significant for hypertension. REVIEW OF SYSTEMS: A 10 system review of systems is negative except for those as mentioned in the HPI. PHYSICAL EXAMINATION: Vital Signs: He has been afebrile. T-max currently is 100.1. His heart rate is in the 100s to 110s on telemetry during my evaluation it appeared to be in sinus. His blood pressure was 108/59. General: He is in no acute distress. HEENT: Oropharynx is moist. He has poor dentition. His eye examination is pink conjunctivae. White sclerae. Neck: Examination shows no obvious thyromegaly or thyroid tenderness. Cardiovascular: He appears to be in a regular rate and rhythm. He has no murmurs. He has no S3 present. He has no lower extremity edema. Chest: Clear bilaterally. He has no increased work of breathing. Abdomen: Soft, nontender, nondistended. He has no obvious organomegaly. Skin: Warm and dry throughout without any rashes. Neurologic: He is moving all extremities well. He has no lateralizing deficits. PERTINENT DATA: His EKG earlier today demonstrated what appeared to be atrial fibrillation with a rapid ventricular response and a rate of 146 beats per minute. His current telemetry showed sinus tach, His laboratory data shows a white count of 11.7, on presentation it was 25, hematocrit 35, his platelet count is 229,000. His sodium is 134, potassium 3.8, his BUN is 9, creatinine 0.6. ASSESSMENT: Mr. Cifuentes is a 63-year-old gentleman with recent pericarditis. PLAN: He had an episode of recurrent paroxysmal atrial fibrillation. He is in sinus now. I will check a CRP to try to get an estimate of his pericarditis activity. We will check a limited echo. At this point, I have no further acute recommendations. We will follow up on the results of that testing. If they seem agreeable, we will see him on a p.r.n. basis in the future. Please contact us if we can be of further assistance. cc: Brandin Gross MD
[2018-11-03] MEDS ORDERED: CARDIZEM PO ONE (19:37)
--- NOTE | 2018-11-03 20:16 | PROGRESS NOTE ---
DATE: 11/03/2018 SUBJECTIVE: The patient had episode of tachycardia this morning, despite medications he had tachycardia, but that has since improved, although he is now sinus, but he is still tachycardic. OBJECTIVE: Vital signs: Heart rate is in the 110s, blood pressure 134/78, temperature was 100.1, which it is starting to parts picker a little bit. Cardiovascular: Regular rate and rhythm. Pulmonary: Bilateral breath sounds. Clear to auscultation. Abdomen: GI was soft, nontender, nondistended. Bowel sounds are positive. LABORATORY DATA: White count is 11 today, hemoglobin and hematocrit 11 and 35, platelets 229,000. Basic was normal. His urine culture grew out Klebsiella pneumoniae, but it is sensitive to cefazolin, gentamicin and Levaquin, and he is currently on cefepime, which should be effective, but he has persistence in his fevers. We will continue to follow. ASSESSMENT AND PLAN: 1. Rhabdomyolysis. CK has resolved. 2. Encephalopathy. To me, it does not seem that changed. He is kind of sometimes intermittently lethargic. Family suggests there may be a psychological psychiatric component to that, but he seems at baseline. There is not a focal deficit there. 3. Type 2 diabetes. We will continue his sugars treatment with Lantus. They have improved since we reinitiated that. 4. Disposition: He is very functionally poor. He is not doing very much. I did consult Physical Therapy, but I am not entirely sure if they have seen him yet. They have not. Today, with his tachycardia if there are any issues there, but that is, the next issue is the atrial fibrillation with rapid ventricular response, which we added digoxin. I am going to go up on his Cardizem. Cardiology has been consulted. We are waiting on an echo. Now, he did have pericarditis in the past, which I think was culture negative, so I am going to repeat echo is pending, but we will work on rate control. I appreciate Cardiology input. He is also on apixaban. He has been on colchicine, which I think was for pericarditis previously, so we will keep an eye on that as well. I would order digoxin, but I think he has already gotten a dose of that. He has completed the load. I am not sure if we will necessarily need to give him further doses since he seems to be rate controlled, but Cardiology is also following. cc: Wali Moore MD
[2018-11-04] MEDS: TYLENOL PO PRN (01:54)
[2018-11-04] MEDS: XOPENEX NEB INH SCH ×4 (03:36→22:42)
[2018-11-04] MEDS: PRILOSEC PO SCH (06:14)
[2018-11-04] MEDS: MAXIPIME 1 GM in NS 50 ML IV SCH (06:15)
[2018-11-04] MEDS: HUMULIN R SUBQ SCH ×4 (07:15→23:24)
[2018-11-04 07:20] LABS: HEMATOCRIT 33.7 % (42.0-52.0); HEMOGLOBIN 11.3 g/dL (14.0-18.0); MCH 28.6 PG (27-31); MCHC 33.5 g/dL (33-37); MCV 85.3 FL (81-99); RBC 3.95 XMIL (4.7-6.1); WBC 14.52 X1000 (4.8-10.8)
[2018-11-04 07:50] LABS: AGAP 11; BUN 13 mg/dL (8-22); CALCIUM 8.5 mg/dL (8.8-10.2); CHLORIDE 98 mmol/L (98-107); COSMO 275; CREATININE 0.6 mg/dL (0.7-1.2); ESTIMATED GFR > 60; GLUCOSE 227 mg/dL (70-104); POTASSIUM 3.7 mmol/L (3.5-5.1); SODIUM 134 mmol/L (136-145); TCO2 25 mmol/L (25-35)
[2018-11-04] MEDS: NEURONTIN PO SCH ×3 (08:16→20:26)
[2018-11-04] MEDS: ELIQUIS PO SCH ×2 (08:16→20:26)
[2018-11-04] MEDS: CARDIZEM CD PO SCH (08:16)
[2018-11-04] MEDS: ASPIRIN PO SCH (08:16)
[2018-11-04] MEDS: TRADJENTA PO SCH (08:17)
[2018-11-04] MEDS: LOPRESSOR PO SCH ×2 (08:17→20:26)
[2018-11-04] MEDS: COLCRYS PO SCH (08:17)
[2018-11-04] MEDS: VITAMIN D PO SCH (08:17)
--- NOTE | 2018-11-04 09:02 | Diag Imaging Result Doc PS360 ---
CHEST-2 VIEWS - 11/04/2018 INDICATION: hypoxia COMPARISON: 10/31/2018 FINDINGS: There is left lower lobe infiltrate is appreciated on the lateral view. Heart size is normal. No pneumothorax or pleural effusion. IMPRESSION: Left lower lobe infiltrate/pneumonia. Electronically signed by Gordon Siddiqui 11/04/2018 9:00 AM
[2018-11-04] MEDS ORDERED: VANCOMYCIN IV PER PHARMACY MISC SCH (09:30)
[2018-11-04] MEDS: LANTUS INSULIN SUBQ SCH (09:47)
--- NOTE | 2018-11-04 11:01 | ECHO REPORT ---
ORDER DATE: 11/03/2018 STUDY: Limited 2D echocardiogram to assess pericardial effusion. SUMMARY OF 2-DIMENSIONAL IMAGIN. Aortic valve leaflets are trileaflet. Mitral valve was normal. Tricuspid valve was normal. Pulmonic valve was normal. 2. Normal left ventricular cavity size. Estimated ejection fraction of 60% to 65%. 3. There is small anterior posterior echo-free space suggestive of pericardial effusion. There is no evidence of tamponade. 4. Aorta 3.9. 5. Left atrium 4.9 cm. 6. Aortic valve leaflets are trileaflet. Pulmonic valve was normal. There is mild tricuspid regurgitation. Peak velocity across the tricuspid valve was 2.6 m/sec. Pulmonary artery systolic pressure of 37 mmHg. There is trace mitral regurgitation. cc: MD Brandin Toure MD
--- NOTE | 2018-11-04 13:35 | INFECTIOUS DISEASE CONSULT REP ---
DATE: 11/04/2018 CONCLUSION: I was unable to get a history from the patient and no family members present. The information I did obtain came from the computer. The patient has an altered mental status. I think it could be due to a combination of having pneumonia and a Klebsiella urinary tract infection. The patient has been developing infections during this admission and also prior to this admission. Therefore, I am concerned that he may have an immunoglobulin deficiency. RECOMMENDATIONS: I agree with treating the patient with vancomycin. I have increased the dose of cefepime to 2 g IV every 12 hours. I ordered immunoglobulin levels. DISCUSSION: The patient was admitted to the hospital after he developed an altered mental status. The patient had been admitted in September to the [facility] for pneumonia and atrial fibrillation with RVR. The studies thus far show a CBC with a white count of 14,520, hemoglobin 11.3, and platelet count 231,000. Creatinine is 0.6, GFR is greater than 60. CK is 904. Liver function studies were normal. Clostridium difficile toxin and antigen were negative. Blood cultures were negative. Urine culture is growing Klebsiella. Chest x-ray shows a left lower lobe pneumonia. I have ordered immunoglobulin levels. PAST MEDICAL HISTORY: Positive for: 1. Paroxysmal atrial fibrillation. 2. Diabetes. 3. Peripheral vascular disease. 4. Hypertension. 5. Nicotine dependence. 6. COPD. 7. History of pericardial effusion. 8. Pericarditis. 9. Cardiac tamponade. PAST SURGICAL HISTORY: 1. Bilateral hip repair. One of the hip repairs ended up being a total hip arthroplasty. 2. Pericardial window. 3. Carpal tunnel surgery. 4. Tonsillectomy. 5. Hand surgery. 6. Sinus surgery. 7. Right shoulder surgery. FAMILY HISTORY: Said to be noncontributory. SOCIAL HISTORY: The patient lives at home with his son. The patient smokes cigarettes. ALLERGIES: The patient has an allergy to statins used for lowering cholesterol. HOME MEDICATIONS: Include the followin. Eliquis. 2. Cholecalciferol. 3. Colchicine. 4. Diltiazem. 5. Gabapentin. 6. Insulin. 7. Linagliptin. 8. Robaxin. 9. Lopressor. 10. Omeprazole. PHYSICAL EXAMINATION: Vital Signs: Temperature is 99.8 degrees, pulse is 98, respirations 16, blood pressure is 120/60. The patient weighs 214 pounds. General: This is an obese, elderly male. He is in no acute distress, but he is confused. Head/eyes/ears/nose/throat: He can hear my spoken words and see near objects. He does not have any white coating to his tongue. Sinuses were not tender. Neck: No stiffness. Lungs: Clear to auscultation. Cardiovascular: Regular heart rate. Abdomen: Soft and nontender. Neurologic: The patient is awake. He did follow request to move his extremities. He did not have a tremor. He was unable to provide a history of his illnesses. The patient was intact to sensation. Thank you for the consult. cc: Sundeep Hinds MD MTDD
[2018-11-04] MEDS: VANCOMYCIN 2 GM in NS 500 ML IV SCH (14:12)
--- NOTE | 2018-11-04 16:49 | CARDIOLOGY PROGRESS NOTE ---
DATE: 11/04/2018 SUBJECTIVE: Mr. Cifuentes has no complaints today. He has no pain complaints, no chest pain. He is breathing fine. PHYSICAL EXAMINATION: Vital Signs: He was febrile to 101.5 this morning at 4 a.m. General: He is in no acute distress. Cardiovascular: He sounds to be in a regular rate and rhythm. He has no murmurs. He has no S3. He has no lower extremity edema. Chest: Sounds clear bilaterally. He has no increased work of breathing. Abdomen: Soft, nontender. PERTINENT DATA: His lab data shows a white count of 14.5 which is increasing. His hematocrit is 33. His platelet count is 231,000 his sodium is 134, potassium 3.7, BUN 13, creatinine is 0.6. His CRP level was 192. ASSESSMENT: Mr. Cifuentes is a 63-year-old gentleman who had atrial fibrillation yesterday but presently is in sinus rhythm. He has demonstrated to have a left lower lobe pneumonia as well as a Klebsiella urinary tract infection. PLAN: His echocardiogram was performed yesterday and shows a very small pericardial effusion. Ejection fraction is noted to be normal. He is not in atrial fibrillation presently as he appears to be in sinus. I do not have any acute recommendations. He is currently on apixaban. Please contact us if we can be of further assistance with this patient. cc: Brandin Gross MD
[2018-11-04] MEDS ORDERED: MAXIPIME 2 GM in NS 100 ML IV SCH (18:00)
--- NOTE | 2018-11-04 18:18 | PROGRESS NOTE ---
DATE: 11/04/2018 SUBJECTIVE: He has developed fevers, and blood pressure and fever is very elevated. OBJECTIVE: Heart rate 95, respiratory rate 18, afebrile temperature, blood pressure 122/52, 95% on room air. Cardiovascular: Regular rate and rhythm. Pulmonary: Bilateral breath sounds, clear to auscultation. GI was soft, nontender, nondistended. Bowel sounds are positive. He has had high fevers, like 101.5 degrees with really no clear source. LABORATORY DATA: Now white count is up to 14, hemoglobin and hematocrit 11 and 33, platelets 231,000. Basic was normal. CRP is very high, 192. DIAGNOSTIC DATA: Chest x-ray shows a left lower lobe pneumonia. Echocardiogram did not show any major issues. There was no pericardial effusion or a very small one. He has had a pericardial window in the past. ASSESSMENT AND PLAN: Problem list: 1. Metabolic encephalopathy. That seems to be improving overall. 2. Klebsiella pneumonia urinary tract infection, currently on cefepime. 3. Rhabdomyolysis. The CK has overall resolved. 4. Type 2 diabetes. He is on Lantus. We will continue to monitor. 5. Persistent fevers. I have gone ahead and consulted Dr. Hinds, and we have added vancomycin. He is on cefepime, which Dr. Hinds has increased the dose, and we will continue to monitor. At this point we are not sure what is inducing that per se, but it could just be the left lower lobe pneumonia which at this point is a hospital-acquired infection or gram-negative type pneumonia. 6. Atrial fibrillation. It seems to be rate-controlled. Cardiology is following. He is on an increased dose of Cardizem and that seems to be controlling his heart rate. I do not see levels above 120. 7. Not sure if he still needs the colchicine. This is for pericarditis, but I am not sure if he needs to be on that indefinitely. I will discuss with Cardiology, but I am going to stop it for right now just because I do not want to induce any major issues. 8. Disposition pending his clinical status, but he is still very agitated. We will continue to follow. I do think he will need physical therapy evaluation, and he may need rehabilitation but we are not sure what could be causing issues there. cc: Wali Moore MD MTDD
[2018-11-04] MEDS: MAXIPIME 2 GM in NS 100 ML IV SCH (18:45)
[2018-11-05] MEDS: TYLENOL PO PRN (01:13)
[2018-11-05] MEDS: XOPENEX NEB INH SCH ×4 (03:26→22:45)
[2018-11-05] MEDS: PRILOSEC PO SCH ×2 (05:50→06:47)
[2018-11-05] MEDS: MAXIPIME 2 GM in NS 100 ML IV SCH ×2 (05:50→18:03)
[2018-11-05] MEDS: VANCOMYCIN 2 GM in NS 500 ML IV SCH (07:34)
[2018-11-05] MEDS: HUMULIN R SUBQ SCH ×4 (07:34→21:21)
--- NOTE | 2018-11-05 07:44 | Diag Imaging Result Doc PS360 ---
EXAM: CHEST-PORTABLE INDICATION: dyspnea TECHNIQUE: One view COMPARISON: 11/04/2018 FINDINGS: The left lower lobe infiltrate was only appreciated on the previous study on the lateral view and is not identified on the current study. Central vasculature appears somewhat more prominent than the previous study suggesting mild pulmonary venous congestion. No new consolidation is identified. Cardiac silhouette is stable. IMPRESSION: Increase in central vasculature suggesting mild pulmonary venous congestion. Grossly stable chest, otherwise. Electronically signed by Yordan Josue 11/05/2018 7:42 AM
[2018-11-05 07:49] LABS: AGAP 11; BUN 25 mg/dL (8-22); CALCIUM 8.5 mg/dL (8.8-10.2); CHLORIDE 97 mmol/L (98-107); COSMO 276; CREATININE 1.2 mg/dL (0.7-1.2); ESTIMATED GFR > 60; GLUCOSE 226 mg/dL (70-104); POTASSIUM 3.7 mmol/L (3.5-5.1); SODIUM 132 mmol/L (136-145); TCO2 24 mmol/L (25-35)
[2018-11-05 08:09] LABS: HEMOGLOBIN 9.7 g/dL (14.0-18.0); MCH 28.3 PG (27-31); MCHC 33.4 g/dL (33-37); MCV 84.5 FL (81-99); MPV 9.8 FL (7.4-10.4); RBC 3.43 XMIL (4.7-6.1); RDW 15.9 % (11.5-14.5); WBC 11.87 X1000 (4.8-10.8)
[2018-11-05] MEDS: LANTUS INSULIN SUBQ SCH (09:01)
[2018-11-05] MEDS: VITAMIN D PO SCH (09:02)
[2018-11-05] MEDS: ELIQUIS PO SCH ×2 (09:03→21:21)
[2018-11-05] MEDS: ASPIRIN PO SCH (09:03)
[2018-11-05] MEDS: TRADJENTA PO SCH (09:03)
[2018-11-05] MEDS: CARDIZEM CD PO SCH (09:03)
[2018-11-05] MEDS: LOPRESSOR PO SCH ×2 (09:03→21:21)
[2018-11-05] MEDS: NEURONTIN PO SCH ×3 (09:03→21:21)
[2018-11-05] MEDS ORDERED: LASIX IV ONE (12:22)
[2018-11-05] MEDS: ZYVOX 600 MG/D5W 600 MG/300 ML IVPB IV SCH (16:09)
[2018-11-05] MEDS ORDERED: LANTUS INSULIN SUBQ ONE (16:16)
--- NOTE | 2018-11-05 16:44 | PROGRESS NOTE ---
DATE: 11/05/2018 SUBJECTIVE: He looks good. He is as awake as he usually is. No major issues. OBJECTIVE: Blood pressure is 113/57, heart rate 119, respiratory 28, temperature 98.5 degrees, T- max last night was again 101.8 was 101.3 the day before 2 days ago. PROBLEM LIST: 1. Left lower lobe pneumonia. He is on cefepime and I added vancomycin but his creatinine is jumped up a little bit so it has doubled so I am going to stop the vancomycin and put him on Zyvox. 2. Klebsiella pneumonia urinary tract infection. He is on cefepime. 3. Rhabdo which has resolved. Will continue to follow. 4. Type 2 diabetes. He is on Lantus. 5. Atrial fibrillation is still not completely rate controlled, although overall improved from a couple days ago on adjusted medications. 6. Pericarditis. I think that is resolved and not an active issue. I do not think the infection is related to that hopefully at this point. 7. Type 2 diabetes still not completely resolved. We will continue to adjust medications. He does look like he has a bit of volume overload so we will give him some diuretics and follow. DISCHARGE CONDITION: Pending workup but I think he may need rehab. We will continue to monitor for needs. cc: Wali Moore MD
[2018-11-06] MEDS: ZYVOX 600 MG/D5W 600 MG/300 ML IVPB IV SCH (03:30)
[2018-11-06] MEDS: XOPENEX NEB INH SCH ×4 (03:41→22:30)
[2018-11-06] MEDS: MAXIPIME 2 GM in NS 100 ML IV SCH (06:12)
[2018-11-06] MEDS: PRILOSEC PO SCH (06:13)
[2018-11-06 06:54] LABS: BASO# 0.02 X1000 (0.0-0.2); BASO% 0.2 % (0.0-0.8); EOS# 0.08 X1000 (0.0-0.7); EOS% 0.7 % (0.0-10.0); HEMATOCRIT 30.2 % (42.0-52.0); HEMOGLOBIN 10.2 g/dL (14.0-18.0); IMM GRAN# 0.16 X1000 (0.0-0.04); IMM GRAN% 1.5 % (0.0-0.5); LYMPH# 0.88 X1000 (1.2-3.4); MCH 28.4 PG (27-31); MCHC 33.8 g/dL (33-37); MCV 84.1 FL (81-99); MONO% 7.3 % (1.7-9.3); MPV 9.6 FL (7.4-10.4); NEUT# 9.02 X1000 (1.4-6.5); NEUT% 82.3 % (42.2-75.2); PLT 300 X1000 (130-400); RBC 3.59 XMIL (4.7-6.1); RDW 15.6 % (11.5-14.5); WBC 10.96 X1000 (4.8-10.8)
[2018-11-06] MEDS: HUMULIN R SUBQ SCH ×4 (06:59→20:50)
[2018-11-06 07:22] LABS: AGAP 11; BUN 23 mg/dL (8-22); CALCIUM 8.8 mg/dL (8.8-10.2); CHLORIDE 101 mmol/L (98-107); COSMO 288; CREATININE 1.2 mg/dL (0.7-1.2); ESTIMATED GFR > 60; GLUCOSE 262 mg/dL (70-104); POTASSIUM 4.1 mmol/L (3.5-5.1); SODIUM 138 mmol/L (136-145); TCO2 26 mmol/L (25-35)
[2018-11-06] MEDS: ELIQUIS PO SCH ×2 (08:05→20:50)
[2018-11-06] MEDS: NEURONTIN PO SCH ×3 (08:05→20:50)
[2018-11-06] MEDS: CARDIZEM CD PO SCH (08:05)
[2018-11-06] MEDS: VITAMIN D PO SCH (08:05)
[2018-11-06] MEDS: TRADJENTA PO SCH (08:05)
[2018-11-06] MEDS: ASPIRIN PO SCH (08:05)
[2018-11-06] MEDS: LOPRESSOR PO SCH ×2 (08:05→20:50)
[2018-11-06] MEDS ORDERED: LANTUS INSULIN SUBQ SCH (09:00)
--- NOTE | 2018-11-06 11:16 | INFECTIOUS DISEASE PROGRESS NO ---
DATE: 11/06/2018 PRESENT ILLNESS: The patient is admitted to the hospital. He had an altered mental status which I think is due to two factors. One is a Klebsiella urinary tract infection and also pneumonia. I think also there is an element of pulmonary venous congestion that is present along with the pneumonia. 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 MEDICATIONS: The patient currently is getting cefepime. He has already been scheduled to get IVIG on the and 08 of November. PHYSICAL EXAMINATION: Vital Signs: Temperature is 99, pulse 114, respirations 16, blood pressure 129/80. General: This is a somewhat ill-appearing, elderly male. He is in no acute distress. Head, Eyes, Ears, Nose, and Throat: He can hear my spoken words and see near objects. He does not have any white patches on his tongue. He talks now in a coherent fashion. Neck: No pain with movement of his neck. Lungs: Clear to auscultation. Cardiovascular: Regular heart rate. Abdomen: Soft and nontender. Neurologic: The patient is awake. He can move his extremities but he is weak. There is no tremor. Integument: No rash. LAB AND X-RAY: Chest x-ray today shows pulmonary venous congestion. Stool for Clostridium difficile toxin and antigen is negative. Blood cultures are negative. The patient's creatinine is 1.2. GFR is greater than 60. CBC shows a white count of 10,960, hemoglobin 10.2, platelet count 300,000. CK is 172. IgG is 391, IgA is 190. Urine culture grew Klebsiella. ASSESSMENT AND PLAN: I have switched the patient's cefepime to Levaquin to treat his Klebsiella urinary tract infection and also to treat if there is any remaining pneumonia. As regarding the patient's immunoglobulin deficiency, he already is scheduled to get IVIG on the and 08 of November. COMORBIDITIES: He has an immunoglobulin deficiency, diabetes mellitus, COPD, cigarette smoking, and immunoglobulin deficiency with an IgG of being only 391. cc: Sundeep Hinds MD [facility]
--- NOTE | 2018-11-06 11:41 | Diag Imaging Result Doc PS360 ---
EXAM: US RENAL 2 (RETROPER) COMPLETE HISTORY: UTI TECHNIQUE: Renal ultrasound COMPARISON: None. FINDINGS: The right kidney measures 11.7 x 6.2 x 6.4 cm. Normal renal echotexture and cortical thickness. No renal stone or hydronephrosis. No renal mass. The left kidney measures 13.0 x 6.7 x 7.4 cm. Normal renal echotexture and cortical thickness. No renal stone or hydronephrosis. No renal mass. The urinary bladder is distended. Questionable tiny amount of debris within it. IMPRESSION: Normal renal ultrasound. Electronically signed by Christos West 11/06/2018 11:38 AM
[2018-11-06] MEDS: LEVAQUIN PO SCH (12:00)
[2018-11-06] MEDS ORDERED: LASIX IV ONE (17:03)
[2018-11-06] MEDS ORDERED: LANTUS INSULIN SUBQ ONE (17:04)
--- NOTE | 2018-11-06 17:57 | PROGRESS NOTE ---
DATE: 11/06/2018 SUBJECTIVE: Patient has no major complaints. OBJECTIVE: Vital Signs: Blood pressure is 126/74, heart rate of 110, respiratory rate of 16, temperature 99.1 degrees, 90% on room air. I think he is on 2 L. Cardiovascular: Regular rate and rhythm. Pulmonary: Diminished at bases. GI: Soft, nontender, nondistended. Bowel sounds are positive. PROBLEM LIST: 1. Klebsiella urinary tract infection. He is now on Levaquin per Dr. Hinds, which seems to be working. He has not had any more fevers thankfully. 2. Left lower lobe pneumonia, which I feel is a gram-negative type pneumonia. He is only on Levaquin. We initially had him on vancomycin, then Zyvox, and then Dr. Hinds consolidated to Levaquin. If he does have more fevers, I would resume Zyvox. 3. Relative renal insufficiency. Seems to be doing okay from that standpoint, although he had a little bit of volume overload based on his chest x-ray. Disposition pending clinical status, but I think he most likely will need rehab. 4. Diabetes. Does not appear to be controlled. We will continue his Lantus and escalate further getting any steroids. This just may be related to uncontrolled infection, and we will follow. DISPOSITION: Pending his clinical status. Repeat labs tomorrow and monitor further. cc: Wali Moore MD
[2018-11-06] MEDS: TYLENOL PO PRN (19:18)
[2018-11-07] MEDS: XOPENEX NEB INH SCH ×4 (03:45→21:10)
--- NOTE | 2018-11-07 06:30 | Diag Imaging Result Doc PS360 ---
EXAM: CHEST-PORTABLE HISTORY: dyspnea TECHNIQUE: Portable chest single view COMPARISON: 11/05/2018 FINDINGS: The lungs are well expanded. The heart is not enlarged. The vessels are mildly distended. There are no infiltrates. No effusion identified. There has been surgery to the lower neck. There are multiple old right rib fractures. IMPRESSION: Stable chest. Electronically signed by Christos West 11/07/2018 6:28 AM
[2018-11-07] MEDS: HUMULIN R SUBQ SCH ×4 (06:33→22:42)
[2018-11-07] MEDS: PRILOSEC PO SCH (06:54)
[2018-11-07 07:38] LABS: BASO# 0.04 X1000 (0.0-0.2); BASO% 0.4 % (0.0-0.8); EOS# 0.11 X1000 (0.0-0.7); EOS% 1.2 % (0.0-10.0); HEMATOCRIT 30.4 % (42.0-52.0); HEMOGLOBIN 10.1 g/dL (14.0-18.0); IMM GRAN# 0.16 X1000 (0.0-0.04); IMM GRAN% 1.7 % (0.0-0.5); LYMPH# 1.05 X1000 (1.2-3.4); LYMPH% 11.2 % (20.5-51.1); MCH 28.1 PG (27-31); MCHC 33.2 g/dL (33-37); MCV 84.7 FL (81-99); MONO# 0.61 X1000 (0.11-0.59); MONO% 6.5 % (1.7-9.3); MPV 9.7 FL (7.4-10.4); NEUT# 7.37 X1000 (1.4-6.5); PLT 349 X1000 (130-400); RBC 3.59 XMIL (4.7-6.1); RDW 15.6 % (11.5-14.5); WBC 9.34 X1000 (4.8-10.8)
[2018-11-07 07:58] LABS: CALCIUM 9.4 mg/dL (8.8-10.2); CREATININE 1.3 mg/dL (0.7-1.2)
[2018-11-07] MEDS: LEVAQUIN PO SCH (09:00)
[2018-11-07] MEDS: LOPRESSOR PO SCH ×2 (09:00→22:19)
[2018-11-07] MEDS: NEURONTIN PO SCH ×3 (09:00→22:19)
[2018-11-07] MEDS: VITAMIN D PO SCH (09:00)
[2018-11-07] MEDS: LANTUS INSULIN SUBQ SCH (09:00)
[2018-11-07] MEDS: TRADJENTA PO SCH (09:00)
[2018-11-07] MEDS: CARDIZEM CD PO SCH (09:00)
[2018-11-07] MEDS: ELIQUIS PO SCH ×2 (09:00→22:19)
[2018-11-07] MEDS: ASPIRIN PO SCH (09:00)
--- NOTE | 2018-11-07 10:36 | INFECTIOUS DISEASE PROGRESS NO ---
DATE: 11/07/2018 SUBJECTIVE: The patient is being treated for pneumonia and urinary tract infection. His pneumonia appears to have cleared as seen on the latest chest x-ray which showed no infiltrate. I think the patient is getting over his Klebsiella urinary tract infection well. My suggestion would be to continue Levaquin at its current dose which is 500 mg daily p.o. for another week. I am signing off for the patient's case but I am available to see him on a p.r.n. basis. cc: Sundeep Hinds MD
[2018-11-07] MEDS ORDERED: NS 1,000 ML IV ONE (19:02)
--- NOTE | 2018-11-07 19:38 | PROGRESS NOTE ---
DATE: 11/07/2018 SUBJECTIVE: The patient is lying in bed, very weak. No major complaints. OBJECTIVE: Vital Signs: Blood pressure 122/61, heart rate of 98, respiratory rate 18, temperature 98.8. Cardiovascular: Regular rate and rhythm. Pulmonary: Bilateral breath sounds clear to auscultation. GI: Soft, nontender, nondistended. Bowel sounds are positive. LABORATORY DATA: White count 9, hemoglobin and hematocrit 10 and 30, platelets 349, creatinine 1.3 which is a little higher than previously. PROBLEM LIST: 1. Klebsiella urinary tract infection. He is on Levaquin per Infectious Disease recommendations. We will continue to follow. There is not evidence of postvoid residual. 2. Left lower lobe pneumonia. Repeat chest x-ray is negative. He has been on vancomycin, Zyvox. That has been discontinued, because that has cleared up. 3. Acute kidney injury. He had some volume overload issues. At this point we just need to avoid anything nephrotoxic. He did get a bit of Lasix yesterday based on his chest x-ray findings, we are just going to kind of watch him right now. 4. Diabetes. Appears not completely controlled. We will continue to follow. DISPOSITION: Looking at rehab options, but I think we are looking at [facility] when bed is available which hopefully will be tomorrow. cc: Wali Moore MD
[2018-11-08] MEDS: XOPENEX NEB INH SCH ×4 (03:35→21:53)
[2018-11-08 06:31] LABS: BASO# 0.02 X1000 (0.0-0.2); BASO% 0.2 % (0.0-0.8); EOS# 0.07 X1000 (0.0-0.7); EOS% 0.7 % (0.0-10.0); HEMATOCRIT 31.7 % (42.0-52.0); HEMOGLOBIN 10.5 g/dL (14.0-18.0); IMM GRAN# 0.16 X1000 (0.0-0.04); IMM GRAN% 1.5 % (0.0-0.5); LYMPH# 0.91 X1000 (1.2-3.4); LYMPH% 8.7 % (20.5-51.1); MCH 28.1 PG (27-31); MCHC 33.1 g/dL (33-37); MCV 84.8 FL (81-99); MONO# 0.54 X1000 (0.11-0.59); MONO% 5.2 % (1.7-9.3); MPV 9.4 FL (7.4-10.4); NEUT# 8.78 X1000 (1.4-6.5); NEUT% 83.7 % (42.2-75.2); PLT 363 X1000 (130-400); RBC 3.74 XMIL (4.7-6.1); RDW 15.6 % (11.5-14.5); WBC 10.48 X1000 (4.8-10.8)
[2018-11-08] MEDS: PRILOSEC PO SCH (06:38)
[2018-11-08] MEDS: HUMULIN R SUBQ SCH ×4 (06:38→22:28)
[2018-11-08 07:22] LABS: AGAP 12; BUN 20 mg/dL (8-22); CALCIUM 9.2 mg/dL (8.8-10.2); CHLORIDE 99 mmol/L (98-107); COSMO 281; CREATININE 1.2 mg/dL (0.7-1.2); ESTIMATED GFR > 60; GLUCOSE 148 mg/dL (70-104); POTASSIUM 3.8 mmol/L (3.5-5.1); SODIUM 138 mmol/L (136-145); TCO2 27 mmol/L (25-35)
[2018-11-08] MEDS: VITAMIN D PO SCH (09:45)
[2018-11-08] MEDS: ASPIRIN PO SCH (09:45)
[2018-11-08] MEDS: LOPRESSOR PO SCH ×2 (09:46→22:37)
[2018-11-08] MEDS: TRADJENTA PO SCH (09:46)
[2018-11-08] MEDS: NEURONTIN PO SCH ×3 (09:46→22:38)
[2018-11-08] MEDS: ELIQUIS PO SCH ×2 (09:46→22:38)
[2018-11-08] MEDS: CARDIZEM CD PO SCH (09:46)
[2018-11-08] MEDS: LEVAQUIN PO SCH (09:46)
[2018-11-08] MEDS: LANTUS INSULIN SUBQ SCH (09:46)
--- NOTE | 2018-11-08 16:02 | Diag Imaging Result Doc PS360 ---
EXAM: MRI BRAIN W/WO CONTRAST INDICATION: encephalopathy COMPARISON: None. FINDINGS: There is no evidence of acute infarct. There is mild patchy T2/FLAIR hyperintensity in the periventricular and subcortical white matter suggesting very mild microangiopathy. There is no evidence of abnormal intracranial enhancement. There is no discrete intracranial mass, mass effect, or intracranial hemorrhage. There is chronic appearing right maxillary sinus mucosal disease. There is a small right mastoid air cell effusion. IMPRESSION: Suggestion of minimal white matter microangiopathy. No evidence of acute intracranial pathology. Electronically signed by Yordan Josue 11/08/2018 4:00 PM
--- NOTE | 2018-11-08 17:10 | PROGRESS NOTE ---
DATE: 11/08/2018 SUBJECTIVE: He looks okay to me. I have gotten this issue from nursing intermittently that he has periods of confusion. The nurse today does not report confusion. [employer] from [facility] reports some lethargy, but he is alert and oriented x3. He knew the year and the place and the president without any prompting. He did not know the month. OBJECTIVE: Vital signs: Blood pressure 118/67, heart rate 91, respiratory rate 16, temperature 98.4 degrees. Cardiovascular: Regular rate and rhythm. Pulmonary: Bilateral breath sounds. Clear to auscultation. GI: Soft, nontender, nondistended. Bowel sounds are positive. PROBLEM LIST: 1. Klebsiella urinary tract infection. He seems improved. We will discharge him on Levaquin per Dr. Hinds's recommendations, which is another 7 days. 2. Left lower lobe pneumonia which has resolved. He is also empirically on antibiotics for that. 3. Acute kidney injury has also improved. We will continue regular medications. 4. Atrial fibrillation with rapid ventricular response. That has also improved. We will continue anticoagulation at dose adjusted for atrial fibrillation. 5. Encephalopathy. I am not entirely sure if this is not to some degree personality issues. But in any case, he seems better. Plan is to discharge him to rehab tomorrow, assuming he is stable, and follow. I am going to adjust his medications and we will follow closely. cc: Wali Moore MD
[2018-11-09] MEDS: XOPENEX NEB INH SCH ×2 (03:25→09:42)
[2018-11-09] MEDS: PRILOSEC PO SCH (06:24)
[2018-11-09] MEDS: HUMULIN R SUBQ SCH ×2 (07:00→12:11)
[2018-11-09] MEDS ORDERED: CARDIZEM CD PO SCH (09:00)
[2018-11-09] MEDS: LEVAQUIN PO SCH (09:29)
[2018-11-09] MEDS: LOPRESSOR PO SCH (09:30)
[2018-11-09] MEDS: TRADJENTA PO SCH (09:30)
[2018-11-09] MEDS: VITAMIN D PO SCH (09:30)
[2018-11-09] MEDS: NEURONTIN PO SCH (09:30)
[2018-11-09] MEDS: LANTUS INSULIN SUBQ SCH (09:30)
[2018-11-09] MEDS: ELIQUIS PO SCH (09:30)
[2018-11-09] MEDS: ASPIRIN PO SCH (09:30)
--- NOTE | 2018-11-09 10:45 | DISCHARGE SUMMARY ---
ADMISSION DATE: 10/30/2018 DISCHARGE DATE: 11/09/2018 DIAGNOSES: 1. Metabolic encephalopathy secondary to Klebsiella urinary tract infection and left lower lobe pneumonia, resolved. The patient is back to baseline. 2. Klebsiella pneumoniae urinary tract infection, extended-spectrum beta- lactamase negative. 3. Rhabdomyolysis, resolved. 4. Atrial fibrillation with rapid ventricular response. 5. Leukocytosis, resolved. 6. Diabetes mellitus type 2. 7. History of pericardial effusion status post pericardial window, 08/24/2018. 8. Chronic obstructive pulmonary disease with no exacerbation. 9. Gastroesophageal reflux disease. 10.Left lower lobe pneumonia, resolved per chest x-ray. CONSULTANTS: 1. Brandin Gross MD, Cardiology. 2. Sundeep Hinds MD, Infectious Disease. DIAGNOSTICS: 1. 10/30/2018 chest x-ray revealed negative exam, lungs are normally expanded and clear. Heart size and mediastinal contours are normal. No pneumothorax or pleural effusion seen. 2. 10/30/2018 CT of the head revealed a negative exam. Ventricles and sulci are normal in size and contour. No intracranial mass or hemorrhage. The skull is intact. Sinuses, mastoids, and middle ears are clear. 3. 10/31/2018 chest x-ray revealed no significant change when compared to 10/31/2018. 4. Echocardiogram to assess pericardial effusion revealed a small anterior posterior echo free space suggestive of pericardial effusion with no evidence of tamponade, normal left ventricular cavity size with an ejection fraction of 60% to 65%, aortic valve is trileaflet, mitral valve normal, tricuspid valve normal, pulmonic valve normal. 5. 11/04/2018 chest x-ray reveals left lower lobe pneumonia. 6. 11/06/2018 renal ultrasound reveals normal renal ultrasound. 7. 11/07/2018 chest x-ray: Lungs are well-expanded. Heart is not enlarged. Vessels are mildly distended. There are no infiltrates, no effusion identified. There has been surgery to the lower neck. There are multiple old right rib fractures. 8. Brain MRI revealed suggestion of minimal white matter microangiopathy, no evidence of acute intracranial pathology. MICROBIOLOGY: 1. Blood cultures revealed no growth after 5 days. 2. Urine culture revealed ESBL negative Klebsiella pneumoniae. 3. Clostridium difficile toxin and antigen were both negative. HOSPITAL COURSE: Mr. Cifuentes presented to the emergency room with confusion and very little appetite. He was found to have an ESBL negative Klebsiella pneumoniae UTI as well as left lower lobe pneumonia for which he was initially treated with vancomycin and cefepime 2 g q.[address] Sundeep Hinds Infectious Disease. He was then switched to Levaquin p.o. for Klebsiella UTI. Pneumonia did clear per chest x-ray. In regards to his paroxysmal atrial fibrillation, his Cardizem has been increased. Rate has been controlled. His Cardizem CD was increased from 120 mg to 240 and we continued his Eliquis. Blood sugars have been in the mid 100s to looks like mid 200 range on Lantus with sliding scale. Cardiology had no further recommendations after this increase, as he remained in sinus rhythm. He was evaluated by physical therapy, who felt that the patient needed rehab and thankfully he is ready for discharge today. Discharge vital signs: Blood pressure is 127/64 with heart rate of 96, respirations are 16, temperature is 98 oral, with room air saturations ranging from 92% to 97%. Cardiovascular: Regular rate and rhythm, S1 and S2 appreciated. He has no lower extremity edema. No murmur. He has bilateral generalized lower extremity edema. Calves are nontender to palpation. Peripheral pulses are palpable x4 extremities. Pulmonary: Breath sounds are clear with no increased work of breathing noted. Chest rises and falls symmetric with respirations. Chest wall is nontender to palpation. Gastrointestinal: Abdomen is soft, nontender, nondistended, with bowel sounds in all 4 quadrants. Genitourinary: He has no CVA nor suprapubic tenderness. Neurologic: His is awake. He is oriented. Skin: Warm and dry. DISCHARGE MEDICATIONS: 1. Aspirin 81 mg p.o. daily. 2. Vitamin D3 5000 units p.o. daily. 3. Cardizem CD 240 mg p.o. daily. 4. Gabapentin 400 mg p.o. t.i.d. 5. Lantus insulin 30 units subcutaneously daily. 6. Tradjenta 5 mg p.o. daily. 7. Robaxin 500 mg p.o. daily. 8. Levaquin 500 mg p.o. daily for 7 days with last dose being 11/16. He is being discharged and transferred to rehab in stable condition. This is a greater than 30 minute discharge. Dictated by SANYA Moscoso for Stephen Thompson MD cc: SANYA Moscoso Agree with the above. the following is my own face to face assessment. acute issues largely resolved. lungs CTAB on my exam at this point. discharging to rehab for strengthening. follow up with PCP. RYLEE
[2018-11-09 12:07] VITALS: BP 136/61
== END 2018-11-09 14:20 | DRG 871 ==
LOC: SUPCPDRO → ED 16:10 → EDIPHOLD 19:03 → SUATTDRO 19:03 → 4N 10-31 10:22
PROVIDERS: ATTEND Internal Medicine
CPT/HCPCS: 51701; 51702; 70450; 70553; 71010; 71020; 71045; 71046; 76770; 80048; 80053; 81001; 82140; 82306; 82550; 82553; 82784; 82805; 82948; 83036; 83605; 84134; 84145; 84484; 85025; 85027; 85610; 85730; 86140; 87040; 87077; 87088; 87186; 87324; 87449; 93005; 93010; 93308; 94640; 94760; 94761; 94799; 96365; 96366; 96375; 97162; 97530; 99285; A9270; A9579; C9113; J0692; J1160; J1815; J1940; J2020; J3370; J7030; J7040; P9612; S0164; XXXXX